=== PATIENT | male | born 1935 | race Caucasian/White ===

== ENCOUNTER 2017-01-25 14:10 | Inpatient (IN) | payer MEDICARE, OTHER ==
[~2017-01-25] VITALS: Ht 180.3 cm; Wt 104.5 kg
[2017-01-25] VITALS (8 sets, daily range): BP systolic 103–116; BP diastolic 63–73; PULSE 84–86; RESP 15–20; TEMP 93; Ht 180.3 cm; Wt 104.5 kg
[2017-01-25] MEDS ORDERED: SOD CHLORIDE 0.9% 1,000 ML IV STA (14:33)
[2017-01-25] MEDS ORDERED: DOPamine-D5W 1.6 MG/ML 250 ML ONE (14:39)
[2017-01-25] MEDS ORDERED: ASPIRIN 300 MG SUPP PR ONE (15:00)
[2017-01-25] MEDS ORDERED: NORepinephrine 8MG/250 ML (PMX 250 ML IV SCH (15:00)
[2017-01-25 15:12] LABS: ADD SCAN DIFF NO
[2017-01-25 15:14] LABS: BASOPHILS % 0.3 % (0.0-2.0); EOSINOPHILS # 0.1 10^3/ul (0.0-0.5); EOSINOPHILS % 1.3 % (0.0-7.0); HEMATOCRIT 39.9 % (42.0-52.0); LYMPHOCYTES # 4.7 10^3/ul (0.8-2.9); LYMPHOCYTES % 42.4 % (15.0-51.0); MEAN CORPUSCULAR HEMOGLOBIN 29.9 pg (29.0-33.0); MEAN CORPUSCULAR HGB CONC 30.1 g/dl (32.0-37.0); MEAN CORPUSCULAR VOLUME 99.3 fl (82.0-101.0); MONOCYTE # 0.7 10^3/ul (0.3-0.9); NEUTROPHIL # 5.4 10^3/ul (1.6-7.5); NEUTROPHILS % 48.2 % (39.0-77.0); PLATELET COUNT 143 10^3/UL (140-415); RED BLOOD COUNT 4.02 10^6/ul (4.70-6.10); WHITE BLOOD COUNT 11.1 10^3/ul (4.8-10.8)
[2017-01-25 15:24] LABS: INR 1.31; PROTIME 16.4 Sec (12.2-14.2); PT RATIO 1.3
[2017-01-25 15:25] LABS: ALBUMIN 3.9 g/dl (3.3-4.9); POTASSIUM 3.5 mmol/L (3.5-5.1)
[2017-01-25 15:27] LABS: BILIRUBIN,INDIRECT 0.2 mg/dl (0-1.1); BILIRUBIN,TOTAL 0.2 mg/dl (0.2-1.3); CREATININE 1.24 mg/dl (0.61-1.24)
[2017-01-25 15:28] LABS: ALBUMIN/GLOBULIN RATIO 1.44; CALCIUM 10.4 mg/dl (8.4-10.2); TOTAL PROTEIN 6.6 g/dl (6.1-8.1)
[2017-01-25 15:38] LABS: TROPONIN-I 0.047 ng/ml (0.00-0.12)
--- NOTE | 2017-01-25 15:56 | RADRPT ---
PROCEDURE: Chest x-ray CLINICAL INDICATION: Endotracheal tube placement TECHNIQUE: Chest single view COMPARISON: None FINDINGS: There is endotracheal tube which terminates 2.5 cm above the dorcas. Right arm PICC line is seen wi th tip in the SVC. Moderate cardiomegaly and an sclerotic aortic calcification seen there is low dalia ng volumes with accentuation lung markings and mild right basilar atelectasis. No confluent pneumon ia seen. The costophrenic angles are sharp. IMPRESSION: 1. Endotracheal tube terminates 2.5 cm above the dorcas. 2. Right arm PICC line in good position. 3. Tubing coiled within the oropharynx this may represent a nasogastric tube or something overlying the patient. 3. Moderate cardiomegaly and an sclerotic aortic calcification. 4. Low lung volumes with accentuation lung markings RPTAT: HH .Pedro Pablo Gracia MD, Date Time Electronically viewed and signed by .Pedro Pablo Gracia MD, on 01/25/2017 15:56 .W/
[2017-01-25 15:57] LABS: AADO2 Arterial 561.7 mmHg (7.0-24.0); Allen Test ACCEPTAB; Arterial Base Excess -11.3 mmol/L (-3.0-3); Arterial COHb 0.3 % (0.0-3.0); Arterial Fraction of Oxyhgb 95.9 % (93.0-99.0); Arterial HCO3 16.7 mmol/L (22.0-26.0); Arterial MetHb 0.4 % (0.0-1.5); Arterial Total Hemglobin 13.5 g/dl (12.0-18.0); MODE VENT - AC
[2017-01-25] MEDS ORDERED: INSULIN REGULAR 10 ML INJ IV ONE (16:00)
[2017-01-25] MEDS ORDERED: ATOR40TA68 PO (16:24)
[2017-01-25] MEDS ORDERED: MTF1000T PO (16:25)
[2017-01-25] MEDS ORDERED: HYDR12.58 PO (16:25)
[2017-01-25] MEDS ORDERED: LOSA100T7 PO (16:25)
[2017-01-25] MEDS ORDERED: NIFE60TA7 PO (16:26)
[2017-01-25] MEDS ORDERED: LANT3I SC (16:26)
[2017-01-25] MEDS ORDERED: ASPI81TA3 PO (16:26)
[2017-01-25] MEDS ORDERED: MEPERIDINE 25 MG INJ IV PRN (16:30)
[2017-01-25] MEDS ORDERED: ASPIRIN 300 MG SUPP PR PRN (16:30)
[2017-01-25] MEDS ORDERED: GLUCAGON 1 MG INJ IM PRN (16:30)
[2017-01-25] MEDS ORDERED: MIDAZOLAM (DRIP) 50 mg/50 mL 50 ML IV ONE (16:30)
[2017-01-25] MEDS ORDERED: DEXTROSE 50% 50 ML SYRINGE IV PRN ×4 (16:30→19:30)
[2017-01-25] MEDS ORDERED: GLUCOSE GEL 15 GRAM TUBE PO PRN ×2 (16:30)
[2017-01-25] MEDS ORDERED: FENTAnyl 50 MCG/ML VIAL IV PRN (16:30)
[2017-01-25] MEDS ORDERED: GLUCOSE GEL 15 GRAM TUBE BUCCAL PRN (16:30)
--- NOTE | 2017-01-25 16:50 | ERA ---
ER Documentation Chief Complaint Date/Time DATE: 01/25/17 TIME: 16:38 Chief Complaint BROUGHT IN VIA EMS FROM HOME DUE TO CARDIAC ARREST WITH NO PULSE ON ARRIVAL HPI This is a 81-year-old man brought in by EMS from home after collapsing in front of his wall sitting on the couch watching TV. states his face was ashen he became unresponsive and fell forward, she called 911 and she was instructed to begin chest compressions, upon EMS arrival patient was without a pulse and apneic. An IV line was established at the scene patient was given 3 rounds of epinephrine intravenously for an initial pulseless electrical activity rhythm. Patient also required defibrillation once. EMS state he had pulses throughout transport although upon he ED arrival patient was without pulses, a Marcus airway tube was placed by EMS. Family who was later at the bedside state patient had no recent fevers or chills, no cough, no complaints of chest pain or shortness of breath, no vomiting or diarrhea. Patient has a history of hypertension and coronary artery disease status post AK and stent placement about 25 years ago. ROS All systems reviewed and are negative except as per history of present illness. Medications Home Meds Reported Medications Insulin Glargine* (Lantus*) 100 Unit/Ml Soln, 36 UNIT SC QAM, #1 VIAL 01/25/17 Aspirin* (Aspirin* Chew) 81 Mg Tab.chew, 81 MG PO DAILY, TAB.CHEW 01/25/17 Nifedipine* (Nifedipine ER*) 60 Mg Tablet.sa, 60 MG PO DAILY, TAB.SA 01/25/17 Metformin* (Glucophage*) 1,000 Mg Tablet, 1000 MG PO BID, #60 TAB 01/25/17 Losartan Potassium* (Losartan Potassium*) 100 Mg Tablet, 100 MG PO DAILY, TAB 01/25/17 Hydrochlorothiazide* (Hydrochlorothiazide*) 12.5 Mg Tablet, 12.5 MG PO DAILY, # 30 TAB 01/25/17 Atorvastatin* (Atorvastatin*) 40 Mg Tablet, 40 MG PO QHS, #30 TAB 01/25/17 Allergies Allergies: Coded Allergies: No Known Allergy (Unverified , 01/25/17) PMhx/Soc Hypertension, diabetes mellitus, coronary artery disease, previous AK with stent placement, hypercholesterolemia, obesity Medical and Surgical Hx: Unable to obtain Hx Alcohol Use: No Hx Substance Use: No Hx Tobacco Use: No Sm[facility] Status[facility] Family History: No diabetes Physical Exam Vitals Vital Signs Date Time Temp Pulse Resp B/P Pulse Ox O2 Delivery O2 Flow Rate FiO2 01/25/17 15:41 22 80 100 01/25/17 14:35 97.0 0 0 0/0 0 01/25/17 14:30 21 100 100 Physical Exam GENERAL: Well-developed man, unresponsive, apneic, afebrile HEENT: Moist mucous membranes, pink conjunctiva, pupils unreactive, no cervical spine deformity NEURO: Nonverbal, pupils mid dilated and fixed, no facial asymmetry, unresponsive CARDIAC: No heart sounds auscultated, no pulses palpated LUNGS: Clear bilaterally no wheezing crackles or stridor ABDOMEN: Soft nontender, no guarding, no rigidity, no rebound, no psoas sign no obturator sign. SKIN: No obvious hematomas, abrasions, contusions, no lacerations, skin cool to touch EXTREMITIES: No clubbing cyanosis or edema, calves are bilaterally symmetrical. PSYCH: Unable to assess Result Diagram: 01/25/17 1437 01/25/17 1437 Results 24 hrs Laboratory Tests Test 01/25/17 14:33 01/25/17 14:37 Blood Gas Specimen Source Blood arterial Arterial Blood Date Drawn 01/25/2017 3:20:50 PM Arterial Blood pH (Temp corrected) 7.180 Arterial Blood pCO2 (Temp correct) 45.9mmhg Arterial Blood pO2 (Temp corrected) 105.4mmHG Arterial Blood HCO3 16.7mmol/L Arterial Blood Base Excess -11.3mmol/L Arterial Blood Oxygen Saturation 96.6mmHG Brent Test ACCEPTAB Arterial Blood Gas Puncture Site Left Radial Arterial Blood Carboxyhemoglobin 0.3% Arterial Blood Methemoglobin 0.4% Blood Gas A-a O2 Differential 561.7mmHg Oxyhemoglobin Percent 95.9% Total Hemoglobin 13.5g/dl Blood Gas Temperature 37.0C Blood Gas Respiration Rate 16.0 Blood Gas Actual Respiration Rate 22 Blood Gas Modality VENT - AC FiO2 100.0% Blood Gas Tidal Volume 500.0mL Blood Gas Low PEEP Setting 5.0cmH2O Blood Gas Critical Value Read Back DR. SANCHEZ Blood Gas Notified Whom RT Blood Gas Notified Time 01/25/2017 3:27:54 PM White Blood Count 11.110^3/ul Red Blood Count 4.0210^6/ul Hemoglobin 12.0g/dl Hematocrit 39.9% Mean Corpuscular Volume 99.3fl Mean Corpuscular Hemoglobin 29.9pg Mean Corpuscular Hemoglobin Concent 30.1g/dl Red Cell Distribution Width 13.0% Platelet Count 77408^3/UL Mean Platelet Volume 12.0fl Neutrophils % 48.2% Lymphocytes % 42.4% Monocytes % 6.0% Eosinophils % 1.3% Basophils % 0.3% Nucleated Red Blood Cells % 0.0/100WBC Neutrophils # 5.410^3/ul Lymphocytes # 4.710^3/ul Monocytes # 0.710^3/ul Eosinophils # 0.110^3/ul Basophils # 0.010^3/ul Nucleated Red Blood Cells # 0.010^3/ul Prothrombin Time 16.4Sec Prothrombin Time Ratio 1.3 INR International Normalized Ratio 1.31 Sodium Level 138mmol/L Potassium Level 3.5mmol/L Chloride Level 98mmol/L Carbon Dioxide Level 16mmol/L Anion Gap 28 Blood Urea Nitrogen 20mg/dl Creatinine 1.24mg/dl Glucose Level 405mg/dl Calcium Level 10.4mg/dl Total Bilirubin 0.2mg/dl Direct Bilirubin 0.00mg/dl Indirect Bilirubin 0.2mg/dl Aspartate Amino Transf (AST/SGOT) 103IU/L Alanine Aminotransferase (ALT/SGPT) 91IU/L Alkaline Phosphatase 60IU/L Troponin I 0.047ng/ml Total Protein 6.6g/dl Albumin 3.9g/dl Globulin 2.70g/dl Albumin/Globulin Ratio 1.44 Lipase 260U/L Current Medications Medications (Trade) Dose Ordered Sig/Judah Route PRN Reason Start Time Stop Time Status Last Admin Dose Admin Sodium Chloride 1,000 ml @ 2,000 mls/hr Q30M STAT IV 01/25/17 14:33 01/25/17 15:02 DC 01/25/17 14:45 Norepinephrine 250 ml @ 1.875 mls/ hr TITRATE IV 01/25/17 15:00 01/25/17 14:45 Dopamine HCl/ Dextrose 250 ml @ ud STK-MED ONCE .ROUTE 01/25/17 14:39 01/25/17 14:40 DC Aspirin 300 mg 300 mg ONCE ONCE AR 01/25/17 15:00 01/25/17 15:01 DC 01/25/17 14:52 Dopamine HCl/ Dextrose 250 ml @ 7.841 mls/ hr TITRATE IV 01/25/17 16:00 Insulin Human Regular (Novolin-R) 12 unit ONCE ONCE IV 01/25/17 16:00 01/25/17 16:26 DC Miscellaneous Information 1 ea NOTE XX 01/25/17 16:30 Glucose (Glutose) 15 gm Q15M PRN PO DECREASED GLUCOSE 01/25/17 16:30 Glucose (Glutose) 22.5 gm Q15M PRN PO DECREASED GLUCOSE 01/25/17 16:30 Dextrose (D50w Syringe) 25 ml Q15M PRN IV DECREASED GLUCOSE 01/25/17 16:30 Dextrose (D50w Syringe) 50 ml Q15M PRN IV DECREASED GLUCOSE 01/25/17 16:30 Glucagon (Glucagen) 1 mg Q15M PRN IM DECREASED GLUCOSE 01/25/17 16:30 Glucose (Glutose) 15 gm Q15M PRN BUCCAL DECREASED GLUCOSE 01/25/17 16:30 Fentanyl 25 mcg 25 mcg Q10M PRN IV SEDATION 01/25/17 16:30 Midazolam HCl (Versed) 50 ml @ 2 mls/hr ONCE ONCE IV 01/25/17 16:30 01/26/17 17:29 01/25/17 16:47 Aspirin (Aspirin) 300 mg Q4 PRN AR FEVER 01/25/17 16:30 01/26/17 16:29 UNV Meperidine HCl (Demerol) 12.5 mg Q4H PRN IV POST OPERATIVE SHIVERING 01/25/17 16:30 Eye Lubricant (Artificial Tears Oph) 2 drop Q6 BOTH EYES 01/25/17 18:00 Procedures/MDM IV line was established patient was placed on groundwater monitoring technician rhythm strip revealed a narrow complex rhythm at about 80 bpm without pulses. Patient was afebrile. Blood sugar was initially normal We began immediate advanced cardiac life support with high-quality chest compressions. I initially administered epinephrine intravenously multiple doses as well as calcium gluconate 1 g IV and sodium bicarbonate 50 mEq IV for pulseless electrical activity. Endotracheal Intubation by me: Pre assessment performed. See preceding note for details. Pre-oxygenation performed with 100% oxygen RSI: Performed w/o complication or hypoxic events. Medications as ordered. Blade: [Mac 4] ET Tube: 7.5 cm Depth: 23 cm at the lip Intubation confirmed by colorimetric CO2, equal breath sounds, quiet over the stomach. Central Line Placement by me: Patient consented, sterilely draped, full prep, gown, glove, mask, time out performed. Anesthesia: 1% lidocaine locally Location: Right subclavian vein Device: Multiple lumen Technique: Seldinger technique. Secured with suture. Results: Venous return from all ports with easy saline flush. No complications. The entire Guide wire retrieved and disposed of. One view chest x-ray performed, read by me ET tube 3 cm above the dorcas, normal soft tissue, No pneumothorax. Right subclavian vein line is in place. Advanced cardiac life support continued with chest compressions and medications for about 10 minutes with return of strong pulses. Patient did not require defibrillation, rhythm throughout ACLS was PEA. He did have postarrest dysrhythmia for a few minutes which resolved spontaneously and without further medications. Postarrest EKG performed, read by me revealed a wide-complex junctional rhythm were regular at 80 bpm, left axis deviation and a right bundle branch block with a QRS duration of 142 ms there are Q waves in inferior and lateral leads consistent with old AK, no acute ST elevations or depressions noted. CBC was unremarkable, electrolytes revealed a BUN/creatinine of 20/1.2, blood sugar elevated at 405, liver function tests unremarkable, initial troponin was negative. Martel catheter was placed, urine analysis was ordered results are pending I will follow-up. Patient required IV pressor medication for blood pressure support including a norepinephrine and dopamine drip titrated to keep systolic blood pressure over 80 mmHg. For continued sedation administered midazolam drip. I did administer regular insulin 12 units IV for hyperglycemia as well as aspirin 300 mg per rectum for cardioprotective measures. I also obtained emergent interventional cardiology consultation regarding the patient's presentation and symptomatology, given his overall presentation and EKG findings patient is not a candidate at this time for emergent PCI. ABG performed, read by me revealed a pH of 7.18, PCO2 46, PO2 205 revealing severe metabolic acidosis consistent with recent cardiac arrest. Patient remained stable for about an hour with good pulses and blood pressure, albeit requiring cardiac pressor medication and is now a good candidate for induced therapeutic hypothermia protocol which I ordered, further imaging deferred to admitting team Critical Care: Time: 45 minutes, this was time separate from other procedures. Treatments/Evaluations: Close monitoring and treatment of unstable vital signs, cardiorespiratory, and neurologic status, while maintaining tight balance of fluid, respiratory, and cardiac interventions. Patient admitted to the intensive care unit. Departure Diagnosis: Primary Impression: Cardiac arrest Additional Impressions: Signs of return of spontaneous circulation Respiratory failure Qualified Code: J96.01 - Acute respiratory failure with hypoxia and hypercapnia Hyperglycemia Condition: Critical DAVID SANCHEZ MD Jan 25, 2017 16:50
[2017-01-25 16:56] LABS: MAGNESIUM 2.4 mg/dl (1.7-2.5); PHOSPHORUS 9.3 mg/dl (2.5-4.9)
[2017-01-25] MEDS ORDERED: INSULIN REGULAR 10 ML INJ SC ONE (18:00)
[2017-01-25] MEDS: ARTIFICIAL TEARS 15 ML OPH BOTH EYES SCH ×2 (18:14→23:15)
[2017-01-25] MEDS: DOPamine-D5W 1.6 MG/ML 250 ML IV SCH (18:14)
[2017-01-25 19:20] LABS: ADD SCAN DIFF NO
[2017-01-25 19:21] LABS: ABNORMAL IP MESSAGE 1; BASOPHIL # 0.1 10^3/ul (0.0-0.1); BASOPHILS % 0.2 % (0.0-2.0); EOSINOPHILS # 0.1 10^3/ul (0.0-0.5); EOSINOPHILS % 0.3 % (0.0-7.0); HEMATOCRIT 41.6 % (42.0-52.0); HEMOGLOBIN 13.8 g/dl (14.0-18.0); LYMPHOCYTES # 1.8 10^3/ul (0.8-2.9); LYMPHOCYTES % 7.8 % (15.0-51.0); MEAN CORPUSCULAR HEMOGLOBIN 30.8 pg (29.0-33.0); MEAN CORPUSCULAR HGB CONC 33.2 g/dl (32.0-37.0); MEAN CORPUSCULAR VOLUME 92.9 fl (82.0-101.0); MONOCYTE # 2.9 10^3/ul (0.3-0.9); MONOCYTES % 12.3 % (0.0-11.0); NEUTROPHIL # 18.4 10^3/ul (1.6-7.5); NEUTROPHILS % 78.6 % (39.0-77.0); PLATELET COUNT 273 10^3/UL (140-415); RED BLOOD COUNT 4.48 10^6/ul (4.70-6.10); WHITE BLOOD COUNT 23.4 10^3/ul (4.8-10.8)
[2017-01-25] MEDS: ACCU-CHEK XX SCH ×5 (19:30→23:30)
[2017-01-25] MEDS ORDERED: ONDANSETRON 4 MG INJ IV PRN (19:30)
[2017-01-25 19:33] LABS: ADD UMIC YES; URINE BILIRUBIN (Dip) NEGATIVE (NEGATIVE); URINE BLOOD (Dip) 3+ (NEGATIVE); URINE COLOR LT. YELLOW (YELLOW); URINE KETONES (Dip) NEGATIVE (NEGATIVE); URINE LEUKOCYTE ESTERASE (Dip) NEGATIVE (NEGATIVE); URINE NITRITE (Dip) NEGATIVE (NEGATIVE); URINE TOTAL PROTEIN (Dip) 2+ (NEGATIVE); URINE UROBILINOGEN (Dip) 0.2 E.U./dL (0.1-1.0)
[2017-01-25 19:34] LABS: ALBUMIN 4.1 g/dl (3.3-4.9)
[2017-01-25 19:37] LABS: ALBUMIN/GLOBULIN RATIO 1.32; BILIRUBIN,INDIRECT 0.2 mg/dl (0-1.1); BILIRUBIN,TOTAL 0.2 mg/dl (0.2-1.3); CREATININE 1.62 mg/dl (0.61-1.24); TOTAL PROTEIN 7.2 g/dl (6.1-8.1)
[2017-01-25 19:38] LABS: CALCIUM 9.2 mg/dl (8.4-10.2)
[2017-01-25 19:40] LABS: INR 1.18; PROTIME 15.1 Sec (12.2-14.2); PT RATIO 1.2
[2017-01-25 19:41] LABS: PARTIAL THROMBOPLASTIN TIME 32.5 Sec (25.0-35.0)
[2017-01-25] MEDS ORDERED: VECURONIUM 10 MG VIAL IV ONE (20:00)
[2017-01-25 20:36] LABS: BACTERIA,URINE MANY; SQUAMOUS EPITHELIAL CELL,UR MODERATE; URINE RBCS >50 /HPF (0)
[2017-01-25] MEDS: SOD CHLORIDE 0.9% 1,000 ML IV SCH (21:32)
[2017-01-25] MEDS: FENTAnyl (DRIP) 1000 mcg/100mL 100 ML IV SCH (22:05)
[2017-01-25] MEDS: INSULIN HUMAN REGULAR 100 UNIT in SOD CHLORIDE 0.9% 99 ML IV SCH (22:24)
[2017-01-25] MEDS: VECURONIUM 100 MG in DEXTROSE 5% 100 ML IV SCH (22:31)
[2017-01-26] VITALS (107 sets, daily range): BP systolic 57–156; BP diastolic 33–75; PULSE 50–85; RESP 15–24
[2017-01-26 00:20] LABS: AADO2 Arterial 344.9 mmHg (7.0-24.0); Arterial Base Excess -9.7 mmol/L (-3.0-3); Arterial COHb 0.3 % (0.0-3.0); Arterial Fraction of Oxyhgb 97.7 % (93.0-99.0); Arterial HCO3 16.4 mmol/L (22.0-26.0); Arterial MetHb 0.4 % (0.0-1.5); Arterial Total Hemglobin 15.3 g/dl (12.0-18.0); MODE VENT - AC
[2017-01-26 00:54] LABS: ADD SCAN DIFF NO
[2017-01-26 00:57] LABS: ABNORMAL IP MESSAGE 1; BASOPHILS % 0.2 % (0.0-2.0); EOSINOPHILS # 0.1 10^3/ul (0.0-0.5); EOSINOPHILS % 0.3 % (0.0-7.0); HEMATOCRIT 41.3 % (42.0-52.0); LYMPHOCYTES # 1.6 10^3/ul (0.8-2.9); LYMPHOCYTES % 7.8 % (15.0-51.0); MEAN CORPUSCULAR HEMOGLOBIN 30.7 pg (29.0-33.0); MEAN CORPUSCULAR HGB CONC 33.9 g/dl (32.0-37.0); MEAN CORPUSCULAR VOLUME 90.6 fl (82.0-101.0); MEAN PLATELET VOLUME 10.9 fl (7.4-10.4); MONOCYTE # 1.8 10^3/ul (0.3-0.9); MONOCYTES % 8.3 % (0.0-11.0); NEUTROPHIL # 17.4 10^3/ul (1.6-7.5); NEUTROPHILS % 82.9 % (39.0-77.0); PLATELET COUNT 267 10^3/UL (140-415); RED BLOOD COUNT 4.56 10^6/ul (4.70-6.10); RED CELL DISTRIBUTION WIDTH 12.8 % (11.5-14.5)
[2017-01-26 01:08] LABS: INR 1.19; PROTIME 15.2 Sec (12.2-14.2); PT RATIO 1.2
[2017-01-26 01:09] LABS: PARTIAL THROMBOPLASTIN TIME 29.2 Sec (25.0-35.0)
[2017-01-26 01:13] LABS: AMYLASE 80 U/L (11-123); MAGNESIUM 1.7 mg/dl (1.7-2.5); PHOSPHORUS 3.2 mg/dl (2.5-4.9)
[2017-01-26 01:15] LABS: ALBUMIN 3.6 g/dl (3.3-4.9); ALBUMIN/GLOBULIN RATIO 1.24; CREATININE 1.86 mg/dl (0.61-1.24); POTASSIUM 3.8 mmol/L (3.5-5.1); TOTAL PROTEIN 6.5 g/dl (6.1-8.1)
[2017-01-26] MEDS: ACCU-CHEK XX SCH ×23 (01:16→23:37)
[2017-01-26] MEDS ORDERED: MIDAZOLAM (DRIP) 50 mg/50 mL 50 ML IV SCH (02:00)
[2017-01-26 02:01] LABS: TROPONIN-I 77.2 ng/ml (0.00-0.12)
[2017-01-26] MEDS: DOPamine-D5W 1.6 MG/ML 250 ML IV SCH ×2 (03:41→19:19)
--- NOTE | 2017-01-26 05:11 | HP ---
DATE OF ADMISSION: 01/25/2017 PRESENTING COMPLAINT: Altered mentation and cardiac arrest. HISTORY OF PRESENTING COMPLAINT: Mr. Burroughs is an 81-year-old male who was said to have been at home with his watching television when he suddenly slumped and lost the pulse. His called 911, and she was walked through CPR over the telephone. By the time EMS arrived, the patient was pulseless. He was managed according to ACLS protocol and regained his pulse. En route to the hospital, however, he lost the pulse again and ended up having to be resected in the emergency room as well where he was found to be a PEA rhythm and intubated. His case was reviewed with the [facility] web user experience strategist who determined that the patient was not a candidate for an emergent angiogram at this time. For details, please review the emergency room physician's notes. Currently, the patient is being admitted for further management. He is currently sedated and on the hypothermia protocol and will be admitted to the intensive care unit. No further history is obtainable at this time. REVIEW OF SYSTEMS: Unobtainable at this time. PAST MEDICAL HISTORY: Positive for 1. High blood pressure. 2. Dyslipidemia. 3. Diabetes mellitus. PAST SURGICAL HISTORY: None. ALLERGIES: NO KNOWN DRUG ALLERGIES. SOCIAL HISTORY: Per report. The patient does not smoke tobacco, drink alcohol , or use illicit drugs. FAMILY HISTORY: Unobtainable. PHYSICAL EXAMINATION: VITAL SIGNS: The patient is currently on the hypothermia protocol, and as such , his core temperature is 91.8, pulse 88, respirations 16, blood pressure 106/46 , saturations 100% on mechanical ventilator with an FIO2 of 100%. GENERAL: Obese male. He looks younger than his stated age, completely paralyzed and sedated. HEENT: Head is normocephalic without evidence of trauma. Pupils are sluggish but equal and nondilated. The patient is endotracheally intubated. CHEST: Sounds clear, maybe slightly diminished in the bases but without crackles or rales. CARDIOVASCULAR: Heart sounds are regular without murmurs. ABDOMEN: NG tube is in place. No active drainage at this time. Abdomen is somewhat firm with hypoactive bowel sounds. Tenderness could not be assessed. LOWER EXTREMITIES: Negative for edema. NEUROLOGIC: The patient is paralyzed. SKIN: There was no gross rash or jaundice. LABORATORY VALUES: His WBC count was 11,000 with a hemoglobin of 12 and platelet of 143 which is normal. Chemistry: Serum glucose was 405 which is quite elevated. Carbon dioxide was low at 16, anion gap was 20, and calcium was 10.4. AST and ALT were 103 and 91 respectively. Phosphatase was elevated at 9.3, and magnesium was 2.4. His lipase level was within normal range. First troponin is negative. Urinalysis had 3+ hemoglobin, WBC is pending, glycosuria noted with proteinuria as well. IMAGING: The patient has been unable to go to CT, but his chest x-ray does not show any gross infiltrates. It shows a PICC line, endotracheal tube, an NG tube in the oropharynx, cardiomegaly, and low lung volumes. ASSESSMENT: An 81-year-old male who came in after cardiac arrest at home, managed for the followin. Cardiac arrest with return of spontaneous circulation, status post resuscitation x2. 2. Probable diabetic ketoacidosis. 3. Acute respiratory failure, ventilator dependent, secondary to #1. 4. High blood pressure with good control. 5. Dyslipidemia. 6. Acute transaminitis which could be secondary to shock liver. 7. Systemic inflammatory response syndrome. PLAN: 1. Continue the hypothermia protocol. 2. Admit to the intensive care unit for close monitoring and vent management. 3. Obtain pulmonary and cardiology consultation. 4. Panculture. 5. Insulin drip for blood sugar control. 4. Gentle IV fluid hydration. 6. Supportive care with PPI therapy, antiemetics, and sedatives. The patient does require close lab monitoring as well as rhythm monitoring, regular electrolyte replacement, and close nursing care. I have not been able to speak with his , but I will continue to try to communicate with her. I have spoken with the emergency room doctor. I will be calling the physicians in consult. Overall, critical care time has been more than 1.5 hours. For further information and clarification, please review the patient's chart and my orders. Dictated By: JOSEPH SALMERON MD, BA/SKYLAR Conf#: [id number] DID#: [id number] [id number]
[2017-01-26] MEDS: ARTIFICIAL TEARS 15 ML OPH BOTH EYES SCH ×4 (05:46→23:19)
[2017-01-26] MEDS: PANTOPRAZOLE 40 MG INJ IV SCH (05:46)
[2017-01-26 05:58] LABS: AADO2 Arterial 396.9 mmHg (7.0-24.0); Allen Test ACCEPTAB; Arterial Base Excess -9.8 mmol/L (-3.0-3); Arterial COHb 0 % (0.0-3.0); Arterial Fraction of Oxyhgb 95.6 % (93.0-99.0); Arterial HCO3 17.2 mmol/L (22.0-26.0); Arterial MetHb 0.3 % (0.0-1.5); Arterial Total Hemglobin 15.1 g/dl (12.0-18.0); MODE VENT - AC
[2017-01-26 06:05] LABS: ADD SCAN DIFF NO
[2017-01-26 06:06] LABS: ABNORMAL IP MESSAGE 1; BASOPHILS % 0.2 % (0.0-2.0); EOSINOPHILS # 0.1 10^3/ul (0.0-0.5); EOSINOPHILS % 0.3 % (0.0-7.0); HEMATOCRIT 40.3 % (42.0-52.0); HEMOGLOBIN 13.8 g/dl (14.0-18.0); LYMPHOCYTES # 1.2 10^3/ul (0.8-2.9); LYMPHOCYTES % 6.5 % (15.0-51.0); MEAN CORPUSCULAR HEMOGLOBIN 31.1 pg (29.0-33.0); MEAN CORPUSCULAR HGB CONC 34.2 g/dl (32.0-37.0); MEAN CORPUSCULAR VOLUME 90.8 fl (82.0-101.0); MEAN PLATELET VOLUME 10.6 fl (7.4-10.4); NEUTROPHIL # 14.4 10^3/ul (1.6-7.5); NEUTROPHILS % 81.3 % (39.0-77.0); PLATELET COUNT 240 10^3/UL (140-415); RED BLOOD COUNT 4.44 10^6/ul (4.70-6.10); RED CELL DISTRIBUTION WIDTH 12.9 % (11.5-14.5); WHITE BLOOD COUNT 17.7 10^3/ul (4.8-10.8)
[2017-01-26] MEDS: INSULIN HUMAN REGULAR 100 UNIT in SOD CHLORIDE 0.9% 99 ML IV SCH (06:11)
[2017-01-26 06:26] LABS: MAGNESIUM 1.7 mg/dl (1.7-2.5); PHOSPHORUS 1.4 mg/dl (2.5-4.9)
[2017-01-26 06:27] LABS: AMYLASE 83 U/L (11-123); CHOL/HDL RATIO 1.6 RATIO
[2017-01-26 06:30] LABS: INR 1.12; PROTIME 14.4 Sec (12.2-14.2); PT RATIO 1.1
[2017-01-26 06:31] LABS: PARTIAL THROMBOPLASTIN TIME 31.5 Sec (25.0-35.0)
[2017-01-26] MEDS: SOD CHLORIDE 0.9% 1,000 ML IV SCH ×2 (09:13→20:34)
[2017-01-26 09:53] LABS: ALBUMIN 3.4 g/dl (3.3-4.9)
[2017-01-26 09:56] LABS: BILIRUBIN,INDIRECT 0.1 mg/dl (0-1.1); BILIRUBIN,TOTAL 0.1 mg/dl (0.2-1.3); CREATININE 2.2 mg/dl (0.61-1.24)
[2017-01-26 09:57] LABS: ALBUMIN/GLOBULIN RATIO 1.13; CALCIUM 8.6 mg/dl (8.4-10.2); POTASSIUM 2.9 mmol/L (3.5-5.1); TOTAL PROTEIN 6.4 g/dl (6.1-8.1)
[2017-01-26] MEDS ORDERED: MAGNESIUM SULFATE 2 GM/50 ML 50 ML ONE (10:08)
[2017-01-26] MEDS ORDERED: MAGNESIUM SULFATE 2 GM/50 ML 50 ML IVPB ONE (10:30)
--- NOTE | 2017-01-26 10:40 | RADRPT ---
PROCEDURE: XR Chest. CLINICAL INDICATION: Hypothermia protocol. TECHNIQUE: PA and Lateral views of the chest were obtained. COMPARISON: No. FINDINGS: The soft tissues are normal. There are degenerative osteophytes in the thoracic spine. A PICC line catheter enters from right subclavian approach with its tip in the superior vena cava. An endotrac heal tube is well-positioned at T3-4. There is left apical pleural thickening. The left ventricl e is enlarged. The cardiomediastinal silhouette and hilar structures are normal. The pulmonary vasc ulature is equilibrated. There are vascular calcifications in the aortic arch. There are perihilar a nd basilar infiltrates with additional plate-like areas of atelectasis in the bases of the lungs. S mall pleural effusions are suspected. IMPRESSION: 1. Congestive heart failure with interstitial pulmonary edema and subsegmental atelectasis in the ba ses of the lungs. 2. Satisfactory positioning of the endotracheal tube at T3-4. 3. Suspect positioning of a central venous catheter versus PICC line catheter and a nasogastric tub e. No pneumothorax is identified. 4. Atherosclerosis of the aortic arch. 5. Cardiomegaly with left ventricular enlargement. RPTAT:AAJJ Physician Paresh Date Time Electronically viewed and signed by Physician Paresh on 01/26/2017 10:39 JM/
[2017-01-26] MEDS ORDERED: POTASSIUM PHOSPHATE 40 MEQ in SOD CHLORIDE 0.9% 250 ML IVPB SCH (12:00)
[2017-01-26 12:15] LABS: Allen Test ACCEPTAB; Arterial Base Excess -9.5 mmol/L (-3.0-3); Arterial COHb 0.2 % (0.0-3.0); Arterial Fraction of Oxyhgb 96.6 % (93.0-99.0); Arterial HCO3 17.7 mmol/L (22.0-26.0); Arterial MetHb 0.4 % (0.0-1.5); Arterial Total Hemglobin 15.3 g/dl (12.0-18.0); MODE VENT-AC
[2017-01-26 13:01] LABS: ADD SCAN DIFF NO
[2017-01-26 13:04] LABS: BASOPHILS % 0.1 % (0.0-2.0); HEMATOCRIT 40.9 % (42.0-52.0); HEMOGLOBIN 14.1 g/dl (14.0-18.0); LYMPHOCYTES # 0.7 10^3/ul (0.8-2.9); MEAN CORPUSCULAR HEMOGLOBIN 31.1 pg (29.0-33.0); MEAN CORPUSCULAR HGB CONC 34.5 g/dl (32.0-37.0); MEAN CORPUSCULAR VOLUME 90.3 fl (82.0-101.0); MONOCYTE # 1.5 10^3/ul (0.3-0.9); MONOCYTES % 8.2 % (0.0-11.0); NEUTROPHIL # 15.7 10^3/ul (1.6-7.5); NEUTROPHILS % 87.1 % (39.0-77.0); PLATELET COUNT 249 10^3/UL (140-415); RED BLOOD COUNT 4.53 10^6/ul (4.70-6.10)
[2017-01-26 13:13] LABS: INR 1.1; PARTIAL THROMBOPLASTIN TIME 32.1 Sec (25.0-35.0); PROTIME 14.2 Sec (12.2-14.2); PT RATIO 1.1
[2017-01-26 13:17] LABS: MAGNESIUM 2.9 mg/dl (1.7-2.5); PHOSPHORUS 2.7 mg/dl (2.5-4.9)
[2017-01-26 13:19] LABS: AMYLASE 91 U/L (11-123)
[2017-01-26 13:19] LABS: ALBUMIN 3.5 g/dl (3.3-4.9); ALBUMIN/GLOBULIN RATIO 1.2; CALCIUM 8.7 mg/dl (8.4-10.2); CREATININE 2.29 mg/dl (0.61-1.24); POTASSIUM 3.5 mmol/L (3.5-5.1); TOTAL PROTEIN 6.4 g/dl (6.1-8.1)
--- NOTE | 2017-01-26 14:11 | RADRPT ---
Vent Rate: 70 bpm RR Interval: 0 msec VT Interval: 0 msec QRS Duration: 130 msec QT Interval: 456 msec QTC Interval: 492 msec P-R-T [place]: 0 - -56 - 37 degrees NSR with PAC's Left axis deviation-LAHB Left ventricular hypertrophy with QRS widening Inferior infarct , age undetermined Anterolateral infarct , age undetermined Abnormal ECG Nonspecific ST segment changes No previous tracing available for comparison Electronically Signed By: Shailesh Lehman [id number]
--- NOTE | 2017-01-26 14:14 | RADRPT ---
Vent Rate: 81 bpm RR Interval: 0 msec CA Interval: 0 msec QRS Duration: 142 msec QT Interval: 406 msec QTC Interval: 471 msec P-R-T [place]: 0 - -80 - 0 degrees Possible accelerated junctional rhythm no clearcut p waves noted Left axis deviation LAHB Right bundle branch block Bifascicular Block Inferior infarct , age undetermined Anterolateral infarct , age undetermined Abnormal ECG Possible lateral st depression and ischemic changes No previous tracing available for comparison Electronically Signed By: Shailesh Lehman [id number]
[2017-01-26] MEDS ORDERED: HEPARIN 1000 UNITS/ML 10 ML INJ IV PRN (14:30)
[2017-01-26] MEDS ORDERED: HEPARIN 1000 UNITS/ML 10 ML INJ IV ONE (14:30)
[2017-01-26 14:37] LABS: ADD SCAN DIFF NO
--- NOTE | 2017-01-26 14:38 | CONS ---
Date/Time of Note Date/Time of Note DATE: 01/26/17 TIME: 14:12 Assessment/Plan Assessment/Plan Additional Assessment/Plan Cardiopulmonary arrest Non-ST elevation LA Cardiomyopathy CAD with history of PCI Acute kidney injury Transaminitis -Patient with cardiac arrest at home with CPR performed by the prior to EMS arrival. As per ER records, patient was PEA and underwent ACLS protocol. Unfortunately, it appears patient with prolonged "downtime" with evidence of worsening renal function, elevated liver enzymes concerning for hypoperfusion as well as BIS score of 0. Furthermore, troponins overnight were elevated as well this morning and I was not informed. We will continue to monitor trend of troponins, of note CK this morning is coming down. Would continue aspirin, start statin therapy, monitor liver function enzymes closely, start IV heparin. In discussion with , there was no head trauma. No beta-ita at the current time given hypotension. Supplement potassium to maintain above 4.0 and magnesium above 2.0. Extensive discussion was had with the patient's over the phone regarding getting history as well as discussing plan of care. Will monitor trend of cardiac enzymes, renal function and mental status to decide plan of care. Consultation Date/Type/Reason Admit Date/Time Jan 25, 2017 at 16:34 Type of Consultation: cv Reason for Consultation Cardiac arrest Hx of Present Illness This is an 81-year-old gentleman with past medical history of coronary artery disease status post PCI 10 years ago, hypertension, dyslipidemia yesterday evening, while sitting on the couch with his , became acutely short of breath and then as per the , "passed out". Prior to this, patient without any shortness of breath or chest pain. He did then slumped down to the floor. His called EMS and she checked for pulse and was not present. She was told to start chest compressions. She thinks EMS got there approximately 10-15 minutes. As per ER records, patient found to be in PEA. Patient was given epinephrine and continued ACLS and patient was defibrillated. Patient was brought to the emergency room for further evaluation and care. As per the , patient did lose "his faculties". Discussion was had overnight with on-call stock hanger. Patient was transferred to the ICU. Laboratory studies overnight with elevated troponin. Patient currently on hypothermia protocol. In further discussion with the , patient with changes in his mental status over the past month with increased agitation and confusion. This was a new finding for him. Otherwise he has remained active, walking between 1- 3 miles on a daily basis with no exertional chest pain or shortness of breath as well as being aggressively compliant with his medications and diabetes control. 12 point review of systems was performed with all pertinent positives and negatives mentioned above and all else is negative Past Medical History Medical History: coronary artery disease, diabetes, high cholesterol, hypertension Past Surgical History Past Surgical Hx: angioplasty Family History Significant Family History: no pertinent family hx Social History Smoking Status: Unknown if ever smoked Other Social History Lives at home with the . Patient has his care normally at the [place]. His signal engineer was last seen 5 years ago in [place]. Exam/Review of Systems Vital Signs Vitals Vital Signs Date Time Temp Pulse Resp B/P Pulse Ox O2 Delivery O2 Flow Rate FiO2 01/26/17 13:32 66 20 100 80 01/26/17 11:45 124/59 01/26/17 11:00 91.3 01/26/17 08:00 Mechanical Ventilator Intake and Output 01/25/17 01/25/17 01/26/17 15:00 23:00 07:00 Intake Total 189 ml 1326.50 ml Output Total 37 ml 252 ml Balance 152 ml 1074.50 ml Exam Sedated and intubated, on paralytics, no apparent distress Head: normocephalic ENMT: intubated Neck: supple Respiratory: other (Coarse breath sounds bilaterally, no wheezing) Cardiovascular: other (S1-S2 heard), regular rate and rhythm Gastrointestinal: bowel sounds (Hypoactive), non-tender, soft Extremities: edema (Trace) Results Result Diagram: 01/26/17 1225 01/26/17 1241 Results 24 hrs Laboratory Tests Test 01/25/17 14:33 01/25/17 14:37 01/25/17 17:46 01/25/17 18:50 Blood Gas Specimen Source Blood arterial Arterial Blood Date Drawn 01/25/2017 3:20:50 PM Arterial Blood pH (Temp corrected) 7.180 *L Arterial Blood pCO2 (Temp correct) 45.9 H Arterial Blood pO2 (Temp corrected) 105.4 H Arterial Blood HCO3 16.7 L Arterial Blood Base Excess -11.3 L Arterial Blood Oxygen Saturation 96.6 Brent Test ACCEPTAB Arterial Blood Gas Puncture Site Left Radial Arterial Blood Carboxyhemoglobin 0.3 Arterial Blood Methemoglobin 0.4 Blood Gas A-a O2 Differential 561.7 H Oxyhemoglobin Percent 95.9 Total Hemoglobin 13.5 Blood Gas Temperature 37.0 Blood Gas Respiration Rate 16.0 Blood Gas Actual Respiration Rate 22 Blood Gas Modality VENT - AC FiO2 100.0 Blood Gas Tidal Volume 500.0 Blood Gas Low PEEP Setting 5.0 Blood Gas Critical Value Read Back DR. SANCHEZ Blood Gas Notified Whom RT Blood Gas Notified Time 01/25/2017 3:27:54 PM White Blood Count 11.1 H 23.4 #H Red Blood Count 4.02 L 4.48 L Hemoglobin 12.0 L 13.8 L Hematocrit 39.9 L 41.6 L Mean Corpuscular Volume 99.3 92.9 Mean Corpuscular Hemoglobin 29.9 30.8 Mean Corpuscular Hemoglobin Concent 30.1 L 33.2 Red Cell Distribution Width 13.0 13.0 Platelet Count 143 273 # Mean Platelet Volume 12.0 H 11.0 H Neutrophils % 48.2 78.6 H Lymphocytes % 42.4 7.8 L Monocytes % 6.0 12.3 H Eosinophils % 1.3 0.3 Basophils % 0.3 0.2 Nucleated Red Blood Cells % 0.0 0.0 Neutrophils # 5.4 18.4 H Lymphocytes # 4.7 H 1.8 Monocytes # 0.7 2.9 H Eosinophils # 0.1 0.1 Basophils # 0.0 0.1 Nucleated Red Blood Cells # 0.0 0.0 Prothrombin Time 16.4 H 15.1 H Prothrombin Time Ratio 1.3 1.2 INR International Normalized Ratio 1.31 1.18 Sodium Level 138 135 Potassium Level 3.5 5.0 Chloride Level 98 101 Carbon Dioxide Level 16 L 20 L Anion Gap 28 H 19 #H Blood Urea Nitrogen 20 26 H Creatinine 1.24 1.62 H Glucose Level 405 *H 360 H Calcium Level 10.4 H 9.2 Phosphorus Level 9.3 H Magnesium Level 2.4 Total Bilirubin 0.2 0.2 Direct Bilirubin 0.00 0.00 Indirect Bilirubin 0.2 0.2 Aspartate Amino Transf (AST/SGOT) 103 H 219 #H Alanine Aminotransferase (ALT/SGPT) 91 H 152 H Alkaline Phosphatase 60 96 # Troponin I 0.047 Total Protein 6.6 7.2 Albumin 3.9 4.1 Globulin 2.70 3.10 Albumin/Globulin Ratio 1.44 1.32 Lipase 260 Bedside Glucose 300 H Activated Partial Thromboplast Time 32.5 Urine Color LT. YELLOW Urine Clarity CLEAR Urine pH 6.5 Urine Specific [place] 1.015 Urine Ketones NEGATIVE Urine Nitrite NEGATIVE Urine Bilirubin NEGATIVE Urine Urobilinogen 0.2 E.U./dL Urine Leukocyte Esterase NEGATIVE Urine Microscopic RBC >50 Urine Microscopic WBC 5-10 Urine Squamous Epithelial Cells MODERATE Urine Bacteria MANY Urine Hemoglobin 3+ H Urine Glucose 0.25% H Urine Total Protein 2+ H Test 01/25/17 21:53 01/25/17 23:09 01/26/17 00:00 01/26/17 00:30 Bedside Glucose 330 H 320 H Blood Gas Specimen Source Blood arterial Arterial Blood Date Drawn 01/26/2017 12:00:58 AM Arterial Blood pH (Temp corrected) 7.318 L Arterial Blood pCO2 (Temp correct) 31.4 L Arterial Blood pO2 (Temp corrected) 126.5 H Arterial Blood HCO3 16.4 L Arterial Blood Base Excess -9.7 L Arterial Blood Oxygen Saturation 98.4 Brent Test N/A Arterial Blood Gas Puncture Site Right Brachial Arterial Blood Carboxyhemoglobin 0.3 Arterial Blood Methemoglobin 0.4 Blood Gas A-a O2 Differential 344.9 H Oxyhemoglobin Percent 97.7 Total Hemoglobin 15.3 Blood Gas Temperature 33.4 Blood Gas Respiration Rate 16.0 Blood Gas Actual Respiration Rate 19 Blood Gas Modality VENT - AC FiO2 70.0 Blood Gas Tidal Volume 500.0 Blood Gas Low PEEP Setting 5.0 Blood Gas Critical Value Read Back A JACOB DIAZ Blood Gas Notified Whom UP Blood Gas Notified Time 01/26/2017 12:20:10 AM White Blood Count 21.0 H Red Blood Count 4.56 L Hemoglobin 14.0 Hematocrit 41.3 L Mean Corpuscular Volume 90.6 Mean Corpuscular Hemoglobin 30.7 Mean Corpuscular Hemoglobin Concent 33.9 Red Cell Distribution Width 12.8 Platelet Count 267 Mean Platelet Volume 10.9 H Neutrophils % 82.9 H Lymphocytes % 7.8 L Monocytes % 8.3 Eosinophils % 0.3 Basophils % 0.2 Nucleated Red Blood Cells % 0.0 Neutrophils # 17.4 H Lymphocytes # 1.6 Monocytes # 1.8 H Eosinophils # 0.1 Basophils # 0.0 Nucleated Red Blood Cells # 0.0 Prothrombin Time 15.2 H Prothrombin Time Ratio 1.2 INR International Normalized Ratio 1.19 Activated Partial Thromboplast Time 29.2 Fibrinogen 343.0 D-Dimer > 03568.00 H Sodium Level 135 Potassium Level 3.8 Chloride Level 106 Carbon Dioxide Level 19 L Anion Gap 14 Blood Urea Nitrogen 31 H Creatinine 1.86 H Glucose Level 308 H Calcium Level 9.0 Phosphorus Level 3.2 # Magnesium Level 1.7 Total Bilirubin 0.0 L Direct Bilirubin 0.00 Indirect Bilirubin 0.0 Aspartate Amino Transf (AST/SGOT) 273 H Alanine Aminotransferase (ALT/SGPT) 131 H Alkaline Phosphatase 77 Creatine Kinase 2034 H Creatine Kinase Index 5.2 Creatinine Kinase MB (Mass) 105.00 H Troponin I 77.200 *H Total Protein 6.5 Albumin 3.6 Globulin 2.90 Albumin/Globulin Ratio 1.24 Amylase Level 80 Lipase 169 Test 01/26/17 00:36 01/26/17 01:15 01/26/17 02:11 01/26/17 03:38 Bedside Glucose 273 H 274 H 242 H 236 H Test 01/26/17 04:26 01/26/17 05:00 01/26/17 05:10 01/26/17 05:18 Bedside Glucose 193 202 Prothrombin Time 14.4 H Prothrombin Time Ratio 1.1 INR International Normalized Ratio 1.12 Activated Partial Thromboplast Time 31.5 Fibrinogen 362.0 D-Dimer > 59290.00 H Sodium Level 139 Potassium Level 2.9 *L Chloride Level 108 Carbon Dioxide Level 18 L Anion Gap 16 Blood Urea Nitrogen 35 H Creatinine 2.20 H Glucose Level 180 # Lactic Acid Level 3.7 H Calcium Level 8.6 Phosphorus Level 1.4 #L Magnesium Level 1.7 Total Bilirubin 0.1 L Direct Bilirubin 0.00 Indirect Bilirubin 0.1 Aspartate Amino Transf (AST/SGOT) 244 H Alanine Aminotransferase (ALT/SGPT) 123 H Alkaline Phosphatase 67 Creatine Kinase 1497 H Creatine Kinase Index 9.2 Creatinine Kinase MB (Mass) 138.00 H Troponin I 93.000 *H Total Protein 6.4 Albumin 3.4 Globulin 3.00 Albumin/Globulin Ratio 1.13 Triglycerides Level 61 Cholesterol Level 80 L LDL Cholesterol, Calculated 18 HDL Cholesterol 50 Cholesterol/HDL Ratio 1.6 Amylase Level 83 Lipase 205 White Blood Count 17.7 H Red Blood Count 4.44 L Hemoglobin 13.8 L Hematocrit 40.3 L Mean Corpuscular Volume 90.8 Mean Corpuscular Hemoglobin 31.1 Mean Corpuscular Hemoglobin Concent 34.2 Red Cell Distribution Width 12.9 Platelet Count 240 Mean Platelet Volume 10.6 H Neutrophils % 81.3 H Lymphocytes % 6.5 L Monocytes % 11.0 Eosinophils % 0.3 Basophils % 0.2 Nucleated Red Blood Cells % 0.0 Neutrophils # 14.4 H Lymphocytes # 1.2 Monocytes # 2.0 H Eosinophils # 0.1 Basophils # 0.0 Nucleated Red Blood Cells # 0.0 Test 01/26/17 06:00 01/26/17 06:08 01/26/17 06:59 01/26/17 08:31 Blood Gas Specimen Source Blood arterial Arterial Blood Date Drawn 01/26/2017 5:40:34 AM Arterial Blood pH (Temp corrected) 7.290 *L Arterial Blood pCO2 (Temp correct) 34.8 L Arterial Blood pO2 (Temp corrected) 71.3 L Arterial Blood HCO3 17.2 L Arterial Blood Base Excess -9.8 L Arterial Blood Oxygen Saturation 95.9 Brent Test ACCEPTAB Arterial Blood Gas Puncture Site Right Radial Arterial Blood Carboxyhemoglobin 0 Arterial Blood Methemoglobin 0.3 Blood Gas A-a O2 Differential 396.9 H Oxyhemoglobin Percent 95.6 Total Hemoglobin 15.1 Blood Gas Temperature 33.0 Blood Gas Respiration Rate 20.0 Blood Gas Actual Respiration Rate 22 Blood Gas Modality VENT - AC FiO2 70.0 Blood Gas Tidal Volume 500.0 Blood Gas Low PEEP Setting 5.0 Blood Gas Inspiratory Pressure 20.0 Blood Gas Critical Value Read Back Francheska ALVARADO RN Blood Gas Notified Whom MM Blood Gas Notified Time 01/26/2017 5:57:55 AM Bedside Glucose 157 189 125 Test 01/26/17 09:42 01/26/17 10:52 01/26/17 11:53 01/26/17 12:00 Bedside Glucose 141 129 124 Blood Gas Specimen Source Blood arterial Arterial Blood Date Drawn 01/26/2017 12:02:24 PM Arterial Blood pH (Temp corrected) 7.288 *L Arterial Blood pCO2 (Temp correct) 35.9 Arterial Blood pO2 (Temp corrected) 82.2 Arterial Blood HCO3 17.7 L Arterial Blood Base Excess -9.5 L Arterial Blood Oxygen Saturation 97.2 Brent Test ACCEPTAB Arterial Blood Gas Puncture Site Right Radial Arterial Blood Carboxyhemoglobin 0.2 Arterial Blood Methemoglobin 0.4 Blood Gas A-a O2 Differential 458.0 H Oxyhemoglobin Percent 96.6 Total Hemoglobin 15.3 Blood Gas Temperature 33.0 Blood Gas Respiration Rate 16.0 Blood Gas Actual Respiration Rate 18 Blood Gas Modality VENT-AC FiO2 80.0 Blood Gas Tidal Volume 500.0 Blood Gas Low PEEP Setting 5.0 Blood Gas Inspiratory Pressure 22.0 Blood Gas Critical Value Read Back EMILY ALEX Blood Gas Notified Whom JAMEE Blood Gas Notified Time 01/26/2017 12:15:12 PM Test 01/26/17 12:25 01/26/17 12:34 01/26/17 12:41 White Blood Count 18.0 H Red Blood Count 4.53 L Hemoglobin 14.1 Hematocrit 40.9 L Mean Corpuscular Volume 90.3 Mean Corpuscular Hemoglobin 31.1 Mean Corpuscular Hemoglobin Concent 34.5 Red Cell Distribution Width 13.0 Platelet Count 249 Mean Platelet Volume 11.0 H Neutrophils % 87.1 H Lymphocytes % 4.0 L Monocytes % 8.2 Eosinophils % 0.0 Basophils % 0.1 Nucleated Red Blood Cells % 0.0 Neutrophils # 15.7 H Lymphocytes # 0.7 L Monocytes # 1.5 H Eosinophils # 0.0 Basophils # 0.0 Nucleated Red Blood Cells # 0.0 Prothrombin Time 14.2 Prothrombin Time Ratio 1.1 INR International Normalized Ratio 1.10 Activated Partial Thromboplast Time 32.1 Fibrinogen 424.0 # D-Dimer > 49876.00 H Phosphorus Level 2.7 Magnesium Level 2.9 #H Amylase Level 91 Lipase 194 Bedside Glucose 113 Sodium Level 137 Potassium Level 3.5 Chloride Level 108 Carbon Dioxide Level 19 L Anion Gap 14 Blood Urea Nitrogen 36 H Creatinine 2.29 H Glucose Level 141 Calcium Level 8.7 Total Bilirubin 0.0 L Direct Bilirubin 0.00 Indirect Bilirubin 0.0 Aspartate Amino Transf (AST/SGOT) 240 H Alanine Aminotransferase (ALT/SGPT) 113 H Alkaline Phosphatase 71 Total Protein 6.4 Albumin 3.5 Globulin 2.90 Albumin/Globulin Ratio 1.20 Medications Medications Current Medications Dopamine HCl/ Dextrose 250 ml @ 7.841 mls/ hr TITRATE IV Last administered on 01/26/17t 03:41; Admin Dose 19.603 MLS/HR; Start 4/22/17 at 16:00 Miscellaneous Information 1 ea NOTE XX ; Start 01/25/17 at 16:30 Glucose (Glutose) 15 gm Q15M PRN PO DECREASED GLUCOSE; Start 01/25/17 at 16:30 Glucose (Glutose) 22.5 gm Q15M PRN PO DECREASED GLUCOSE; Start 01/25/17 at 16: 30 Dextrose (D50w Syringe) 25 ml Q15M PRN IV DECREASED GLUCOSE; Start 01/25/17 at 16:30 Dextrose (D50w Syringe) 50 ml Q15M PRN IV DECREASED GLUCOSE; Start 01/25/17 at 16:30 Glucagon (Glucagen) 1 mg Q15M PRN IM DECREASED GLUCOSE; Start 01/25/17 at 16:30 Glucose (Glutose) 15 gm Q15M PRN BUCCAL DECREASED GLUCOSE; Start 01/25/17 at 16 :30 Fentanyl 25 mcg 25 mcg Q10M PRN IV SEDATION; Start 01/25/17 at 16:30 Midazolam HCl (Versed) 50 ml @ 2 mls/hr ONCE ONCE IV Last administered on 01/25 16:47; Admin Dose 2 MLS/HR; Start 01/25/17 at 16:30; Stop 01/26/17 at 17: 29 Aspirin (Aspirin) 300 mg Q4 PRN WI FEVER; Start 01/25/17 at 16:30; Stop at 16:29 Meperidine HCl (Demerol) 12.5 mg Q4H PRN IV POST OPERATIVE SHIVERING; Start at 16:30 Eye Lubricant (Artificial Tears Oph) 2 drop Q6 BOTH EYES Last administered on 11:56; Admin Dose 2 DROP; Start 01/25/17 at 18:00 Diagnostic Test (Pha) (Accu-Chek) 1 ea Q1H XX Last administered on 01/26/17 12 :37; Admin Dose 1 EA; Start 01/25/17 at 19:30 Dextrose (D50w Syringe) 25 ml Q15M PRN IV Till BS 80 mg/dL or above x2; Start 01/25/17 at 19:30 Dextrose 50 ml 50 ml Q15M PRN IV Till BS 80 mg/dL or above x2; Start 01/25/17 at 19:30 Sodium Chloride (NS) 1,000 ml @ 75 mls/hr [id number] IV Last administered on 01/26 09:13; Admin Dose 75 MLS/HR; Start 01/25/17 at 19:30 Pantoprazole (Protonix Iv) 40 mg DAILY@06 IV Last administered on 01/26/17 05: 46; Admin Dose 40 MG; Start 01/26/17 at 06:00 Ondansetron HCl 4 mg 4 mg Q6H PRN IV NAUSEA AND/OR VOMITING; Start 01/25/17 at 19:30 Vecuronium [place] 100 mg/ Dextrose 100 ml @ 0 mls/hr TITRATE IV Last administered on 01/25/17 22:31; Admin Dose 5 MLS/HR; Start 01/25/17 at 22:00 Fentanyl 100 ml @ 2.5 mls/hr TITRATE IV Last administered on 01/25/17 22:05; Admin Dose 2.5 MLS/HR; Start 01/25/17 at 22:00 Norepinephrine 16 mg/Dextrose 500 ml @ 1.87 mls/hr TITRATE IV ; Start 01/25/17 at 23:30 Norepinephrine 16 mg/Dextrose 500 ml @ 1.87 mls/hr TITRATE IV Last administered on 01/26/17 08:15; Admin Dose 56.25 MLS/HR; Start 01/25/17 at 23: 30 Midazolam HCl 50 ml @ 1 mls/hr TITRATE IV Last administered on 01/26/17 02:10 ; Admin Dose 1 MLS/HR; Start 01/26/17 at 02:00 Potassium Phosphate/Sodium Chloride (K Phos (Meq)/NS) 259.0909 ml @ 64.773 m... ONCE IVPB Last administered on 01/26/17 12:28; Admin Dose 64.773 MLS/HR; Start 01/26/17 at 12:00; Stop 01/26/17 at 15:59 Chase Stapleton DO Jan 26, 2017 14:37
--- NOTE | 2017-01-26 14:39 | RADRPT ---
Echocardiogram Report Patient Name: RUDY RAE Gender: Male Date: 1935 Study Date: 26-Jan-2017 Grape Grower: [facility] Location: 116 Ref. Physician: JOSEPH SALMERON Quality: Adequate Procedures: Transthoracic echocardiogram with complete 2D, M-Mode, and doppler examination. Indications: Cardiac Arrest. 2D/M Mode Doppler Measurement Value Normal Ranges Measurement Value Normal Ranges LVIDd 2D 4.4 3.5 - 5.6 cm AV Peak Javy 1.0 m/sec LVIDs 2D 3.0 2.1 - 4.1 cm AV Peak PG 4.2 mmHg LVPWd 2D 1.6 0.6 - 1.1 cm LVOT Peak Javy 0.9 m/sec IVSd 2D 1.5 0.6 - 1.1 cm LVOT Peak PG 3.3 mmHg AoR Diam 2D 3.0 2.0 - 3.7 cm MV E Peak Javy 0.7 m/sec EDV 2D 88.5 cm3 MV A Peak Javy 0.5 m/sec ESV 2D 25.7 cm3 MV E/A 1.3 MV Decel Time 250 msec MV Decel [place] 3 MV E/A 1.3 Findings Left Ventricle: Overall, low normal left ventricular systolic function. Not all segments visualized. Normal left ventricular cavity size. Moderate concentric left ventricular hypertrophy. Ejection fraction is visually estimated at 50 %. Abnormal Diastolic Function. These segments of the LV are hypokinetic apex. Right Ventricle: Normal right ventricular size. Normal right ventricular systolic function. Left Atrium: The left atrium is normal in size. Right Atrium: The right atrium is normal in size. Mitral Valve: Mild mitral leaflet calcification. Mild mitral annular calcification. Trace mitral regurgitation. Aortic Valve: Normal appearance of the aortic valve. No significant aortic stenosis or insufficiency. Tricuspid Valve: Tricuspid valve not well visualized. There is trace tricuspid regurgitation. Pulmonic Valve: There is trace pulmonic regurgitation. Pericardium: Normal pericardium with no significant pericardial effusion. Aorta: Normal aortic root. IVC: Inferior vena cava without respiratory collapse, however, patient on ventilator. Conclusions Overall, low normal left ventricular systolic function. Not all segments visualized. Normal left ventricular cavity size. Moderate concentric left ventricular hypertrophy. Ejection fraction is visually estimated at 50 %. Abnormal Diastolic Function. These segments of the LV are hypokinetic apex. Normal right ventricular size. Normal right ventricular systolic function. The left atrium is normal in size. The right atrium is normal in size. No significant valvular stenosis or regurgitation seen. Normal pericardium with no significant pericardial effusion. Electronically Signed By: Chase Stapleton 26-Jan-2017 14:39:25 -0700 Patient Name: RUDY RAE Study Date: 26-Jan-2017 [id number]
--- NOTE | 2017-01-26 14:41 | CONS ---
DATE OF ADMISSION: 01/25/2017 DATE OF CONSULTATION: 01/26/2017 PULMONARY CONSULTATION REASON FOR CONSULTATION: Respiratory failure, status post cardiac arrest. HISTORY OF PRESENT ILLNESS: Briefly, Mr. Burroughs is an 81-year-old gentleman with a history of hyperte nsion, dyslipidemia, diabetes who was apparently at home TV with his when he suddenly slumped o [place] and upon contacting 911 CPR was initiated by the patient's . This was ongoing for a period of 10 to 15 minutes at which point EMS arrived. Apparently at that time, EMS was able to regain the patient's pulse and it appears that upon arrival to the emergency room, he was in PEA at which poin t he was intubated. He at that point was started on hypothermia protocol managed for his acute anthony nary syndrome and transferred to the ICU. PAST MEDICAL HISTORY: Positive for hypertension, dyslipidemia, diabetes. ALLERGIES: NONE. PAST SURGICAL HISTORY: None. SOCIAL HISTORY: No tobacco, alcohol or illicit drug use. FAMILY HISTORY: Unable to obtain. REVIEW OF SYSTEMS: Unable to obtain. PHYSICAL EXAMINATION: VITAL SIGNS: Currently blood pressure is 124/59 supported on dopamine and Levophed. Oxygen saturat ion is 100% on 80% FIO2, heart rate is 66 and regular. HEENT: ET tube is in place. Pupils are fixed and dilated. NECK: Supple. No thyromegaly. CARDIOVASCULAR: Regular rate and rhythm, S1, S2. No murmurs, rubs, or gallops. CHEST: There are bibasilar crackles. ABDOMEN: Soft, nontender. EXTREMITIES: No cyanosis, clubbing or edema. NEUROLOGIC: Exam is difficult to ascertain given the patient is on paralytics at this point. LABORATORY DATA: BUN is 36, creatinine is 2.3. ABG: pH is 7.3, pCO2 is 36, pO2 is 82. WBC is 18, hemoglobin is 14.1. Latest troponin is 93, AST is 244, ALT is 123. IMPRESSION: 1. Status post cardiopulmonary arrest, likely due to a primary cardiac event, likely an acute myoca rdial infarction. Now with associated end organ dysfunction as evidenced by high concern for anoxic encephalopathy, acute renal failure, likely due to acute tubular necrosis and possibly early ischem ic hepatopathy as well as shock. 2. Acute myocardial infarction. 3. Acute respiratory failure secondary to above. 4. Acute renal failure. 5. Transaminitis likely ischemic hepatopathy. RECOMMENDATIONS: 1. Continue with hypothermia protocol. 2. Will make ventilator adjustments to optimize his acid base status and his ventilatory status. 3. Will need to reassess mental status once he is off hypothermia protocol and off paralytics. 4. Management of ACS as per cardiology. 5. Prognosis based on the current findings is very grim, but again will need to reevaluate once the patient is off hypothermia protocol. Dictated By: MARY SAUNDERS MD NK/NTS Conf#: [id number] DID#: [id number] CC: JOSEPH SALMERON MD;*EndCC*
[2017-01-26 14:42] LABS: ABNORMAL IP MESSAGE 1; BASOPHILS % 0.1 % (0.0-2.0); HEMATOCRIT 40.9 % (42.0-52.0); HEMOGLOBIN 14.2 g/dl (14.0-18.0); LYMPHOCYTES # 0.7 10^3/ul (0.8-2.9); LYMPHOCYTES % 3.7 % (15.0-51.0); MEAN CORPUSCULAR HEMOGLOBIN 31.4 pg (29.0-33.0); MEAN CORPUSCULAR HGB CONC 34.7 g/dl (32.0-37.0); MEAN CORPUSCULAR VOLUME 90.5 fl (82.0-101.0); MEAN PLATELET VOLUME 10.8 fl (7.4-10.4); MONOCYTE # 1.9 10^3/ul (0.3-0.9); MONOCYTES % 10.2 % (0.0-11.0); NEUTROPHILS % 85.5 % (39.0-77.0); PLATELET COUNT 247 10^3/UL (140-415); RED BLOOD COUNT 4.52 10^6/ul (4.70-6.10); RED CELL DISTRIBUTION WIDTH 12.9 % (11.5-14.5); WHITE BLOOD COUNT 18.8 10^3/ul (4.8-10.8)
[2017-01-26 14:56] LABS: INR 1.07; POTASSIUM 4.1 mmol/L (3.5-5.1); PROTIME 13.9 Sec (12.2-14.2); PT RATIO 1.1
[2017-01-26 14:57] LABS: PARTIAL THROMBOPLASTIN TIME 30.1 Sec (25.0-35.0)
[2017-01-26 14:59] LABS: CREATININE 2.37 mg/dl (0.61-1.24)
[2017-01-26 15:00] LABS: CALCIUM 8.5 mg/dl (8.4-10.2)
[2017-01-26] MEDS: HEPARIN 25000 UNITS/250 ML 250 ML IV SCH (15:00)
[2017-01-26] MEDS: ASPIRIN 81 MG TAB NGT SCH (15:03)
--- NOTE | 2017-01-26 15:09 | RADRPT ---
Vent Rate: 63 bpm RR Interval: 0 msec DE Interval: 168 msec QRS Duration: 124 msec QT Interval: 466 msec QTC Interval: 476 msec P-R-T [place]: 0 - -59 - 16 degrees Normal sinus rhythm Left axis deviation-LAHB Right bundle branch block Bifascicular block Minimal voltage criteria for LVH, may be normal variant Inferior infarct , age undetermined Anterolateral infarct , age undetermined Abnormal ECG No previous tracing available for comparison Electronically Signed By: Shailesh Lehman [id number]
[2017-01-26] MEDS ORDERED: SOD CHLORIDE 0.9% 1,000 ML IV ONE (16:20)
--- NOTE | 2017-01-26 17:12 | PN ---
Date/Time of Note Date/Time of Note DATE: 01/26/17 TIME: 17:03 Assessment/Plan VTE Prophylaxis VTE Prophylaxis Intervention: heparin Lines/Catheters IV Catheter Type (from [facility]): Central Line Central line still needed: Yes Urinary Cath still in place: Yes Reason Cath still needed: other (indicate) Assessment/Plan Assessment/Plan An 81-year-old male who came in after cardiac arrest at home, managed for the followin. Cardiac arrest with return of spontaneous circulation, status post resuscitation x2. 2. Diabetic ketoacidosis: improving on insulin drip 3. Acute respiratory failure, ventilator dependent, secondary to #1. 4. High blood pressure with good control. 5. Dyslipidemia. 6. Acute transaminitis which could be secondary to shock liver. 7. Systemic inflammatory response syndrome. 8. NSTEMI PLAN: 1. Continue the hypothermia protocol. 2. Continue ICU care and vent Mgt 3. f/u pul and cardio recs / patient is on heparin drip for Nstemi 4. f/u final culture reports 5. Continue Insulin drip for blood sugar control. 6. Continue Gentle IV fluid hydration. 7. Replace and monitor electrolytes Supportive care with PPI therapy, antiemetics, and sedatives. Prophylaxis: Heparin and pepcid Critical care > 35mins Subjective 24 Hr Interval Summary Free Text/Dictation Patient seen and examined. remains on hypothermia protocol Exam/Review of Systems Vital Signs Vitals Vital Signs Date Time Temp Pulse Resp B/P Pulse Ox O2 Delivery O2 Flow Rate FiO2 01/26/17 16:30 60 24 133/65 99 01/26/17 16:00 91.3 01/26/17 15:32 80 01/26/17 08:00 Mechanical Ventilator Intake and Output 01/25/17 01/25/17 01/26/17 15:00 23:00 07:00 Intake Total 189 ml 1326.50 ml Output Total 37 ml 252 ml Balance 152 ml 1074.50 ml Exam GENERAL: Obese male. He looks younger than his stated age, completely paralyzed and sedated. HEENT: Head is normocephalic without evidence of trauma. Pupils are sluggish but equal and nondilated. The patient is endotracheally intubated. CHEST: Sounds clear, maybe slightly diminished in the bases but without crackles or rales. CARDIOVASCULAR: Heart sounds are regular without murmurs. ABDOMEN: NG tube is in place. No active drainage at this time. Abdomen is somewhat firm with hypoactive bowel sounds. Tenderness could not be assessed. LOWER EXTREMITIES: Negative for edema. NEUROLOGIC: The patient is paralyzed. SKIN: There was no gross rash or jaundice. Results Result Diagram: 01/26/17 1420 01/26/17 1420 Results 24 hrs Laboratory Tests Test 01/25/17 17:46 01/25/17 18:50 01/25/17 21:53 01/25/17 23:09 Bedside Glucose 300 H 330 H 320 H White Blood Count 23.4 #H Red Blood Count 4.48 L Hemoglobin 13.8 L Hematocrit 41.6 L Mean Corpuscular Volume 92.9 Mean Corpuscular Hemoglobin 30.8 Mean Corpuscular Hemoglobin Concent 33.2 Red Cell Distribution Width 13.0 Platelet Count 273 # Mean Platelet Volume 11.0 H Neutrophils % 78.6 H Lymphocytes % 7.8 L Monocytes % 12.3 H Eosinophils % 0.3 Basophils % 0.2 Nucleated Red Blood Cells % 0.0 Neutrophils # 18.4 H Lymphocytes # 1.8 Monocytes # 2.9 H Eosinophils # 0.1 Basophils # 0.1 Nucleated Red Blood Cells # 0.0 Prothrombin Time 15.1 H Prothrombin Time Ratio 1.2 INR International Normalized Ratio 1.18 Activated Partial Thromboplast Time 32.5 Urine Color LT. YELLOW Urine Clarity CLEAR Urine pH 6.5 Urine Specific [place] 1.015 Urine Ketones NEGATIVE Urine Nitrite NEGATIVE Urine Bilirubin NEGATIVE Urine Urobilinogen 0.2 E.U./dL Urine Leukocyte Esterase NEGATIVE Urine Microscopic RBC >50 Urine Microscopic WBC 5-10 Urine Squamous Epithelial Cells MODERATE Urine Bacteria MANY Urine Hemoglobin 3+ H Urine Glucose 0.25% H Urine Total Protein 2+ H Sodium Level 135 Potassium Level 5.0 Chloride Level 101 Carbon Dioxide Level 20 L Anion Gap 19 #H Blood Urea Nitrogen 26 H Creatinine 1.62 H Glucose Level 360 H Calcium Level 9.2 Total Bilirubin 0.2 Direct Bilirubin 0.00 Indirect Bilirubin 0.2 Aspartate Amino Transf (AST/SGOT) 219 #H Alanine Aminotransferase (ALT/SGPT) 152 H Alkaline Phosphatase 96 # Total Protein 7.2 Albumin 4.1 Globulin 3.10 Albumin/Globulin Ratio 1.32 Test 01/26/17 00:00 01/26/17 00:30 01/26/17 00:36 01/26/17 01:15 Blood Gas Specimen Source Blood arterial Arterial Blood Date Drawn 01/26/2017 12:00:58 AM Arterial Blood pH (Temp corrected) 7.318 L Arterial Blood pCO2 (Temp correct) 31.4 L Arterial Blood pO2 (Temp corrected) 126.5 H Arterial Blood HCO3 16.4 L Arterial Blood Base Excess -9.7 L Arterial Blood Oxygen Saturation 98.4 Brent Test N/A Arterial Blood Gas Puncture Site Right Brachial Arterial Blood Carboxyhemoglobin 0.3 Arterial Blood Methemoglobin 0.4 Blood Gas A-a O2 Differential 344.9 H Oxyhemoglobin Percent 97.7 Total Hemoglobin 15.3 Blood Gas Temperature 33.4 Blood Gas Respiration Rate 16.0 Blood Gas Actual Respiration Rate 19 Blood Gas Modality VENT - AC FiO2 70.0 Blood Gas Tidal Volume 500.0 Blood Gas Low PEEP Setting 5.0 Blood Gas Critical Value Read Back A JACOB DIAZ Blood Gas Notified Whom UP Blood Gas Notified Time 01/26/2017 12:20:10 AM White Blood Count 21.0 H Red Blood Count 4.56 L Hemoglobin 14.0 Hematocrit 41.3 L Mean Corpuscular Volume 90.6 Mean Corpuscular Hemoglobin 30.7 Mean Corpuscular Hemoglobin Concent 33.9 Red Cell Distribution Width 12.8 Platelet Count 267 Mean Platelet Volume 10.9 H Neutrophils % 82.9 H Lymphocytes % 7.8 L Monocytes % 8.3 Eosinophils % 0.3 Basophils % 0.2 Nucleated Red Blood Cells % 0.0 Neutrophils # 17.4 H Lymphocytes # 1.6 Monocytes # 1.8 H Eosinophils # 0.1 Basophils # 0.0 Nucleated Red Blood Cells # 0.0 Prothrombin Time 15.2 H Prothrombin Time Ratio 1.2 INR International Normalized Ratio 1.19 Activated Partial Thromboplast Time 29.2 Fibrinogen 343.0 D-Dimer > 38479.00 H Sodium Level 135 Potassium Level 3.8 Chloride Level 106 Carbon Dioxide Level 19 L Anion Gap 14 Blood Urea Nitrogen 31 H Creatinine 1.86 H Glucose Level 308 H Calcium Level 9.0 Phosphorus Level 3.2 # Magnesium Level 1.7 Total Bilirubin 0.0 L Direct Bilirubin 0.00 Indirect Bilirubin 0.0 Aspartate Amino Transf (AST/SGOT) 273 H Alanine Aminotransferase (ALT/SGPT) 131 H Alkaline Phosphatase 77 Creatine Kinase 2034 H Creatine Kinase Index 5.2 Creatinine Kinase MB (Mass) 105.00 H Troponin I 77.200 *H Total Protein 6.5 Albumin 3.6 Globulin 2.90 Albumin/Globulin Ratio 1.24 Amylase Level 80 Lipase 169 Bedside Glucose 273 H 274 H Test 01/26/17 02:11 01/26/17 03:38 01/26/17 04:26 01/26/17 05:00 Bedside Glucose 242 H 236 H 193 Prothrombin Time 14.4 H Prothrombin Time Ratio 1.1 INR International Normalized Ratio 1.12 Activated Partial Thromboplast Time 31.5 Fibrinogen 362.0 D-Dimer > 58377.00 H Sodium Level 139 Potassium Level 2.9 *L Chloride Level 108 Carbon Dioxide Level 18 L Anion Gap 16 Blood Urea Nitrogen 35 H Creatinine 2.20 H Glucose Level 180 # Lactic Acid Level 3.7 H Calcium Level 8.6 Phosphorus Level 1.4 #L Magnesium Level 1.7 Total Bilirubin 0.1 L Direct Bilirubin 0.00 Indirect Bilirubin 0.1 Aspartate Amino Transf (AST/SGOT) 244 H Alanine Aminotransferase (ALT/SGPT) 123 H Alkaline Phosphatase 67 Creatine Kinase 1497 H Creatine Kinase Index 9.2 Creatinine Kinase MB (Mass) 138.00 H Troponin I 93.000 *H Total Protein 6.4 Albumin 3.4 Globulin 3.00 Albumin/Globulin Ratio 1.13 Triglycerides Level 61 Cholesterol Level 80 L LDL Cholesterol, Calculated 18 HDL Cholesterol 50 Cholesterol/HDL Ratio 1.6 Amylase Level 83 Lipase 205 Test 01/26/17 05:10 01/26/17 05:18 01/26/17 06:00 01/26/17 06:08 White Blood Count 17.7 H Red Blood Count 4.44 L Hemoglobin 13.8 L Hematocrit 40.3 L Mean Corpuscular Volume 90.8 Mean Corpuscular Hemoglobin 31.1 Mean Corpuscular Hemoglobin Concent 34.2 Red Cell Distribution Width 12.9 Platelet Count 240 Mean Platelet Volume 10.6 H Neutrophils % 81.3 H Lymphocytes % 6.5 L Monocytes % 11.0 Eosinophils % 0.3 Basophils % 0.2 Nucleated Red Blood Cells % 0.0 Neutrophils # 14.4 H Lymphocytes # 1.2 Monocytes # 2.0 H Eosinophils # 0.1 Basophils # 0.0 Nucleated Red Blood Cells # 0.0 Bedside Glucose 202 157 Blood Gas Specimen Source Blood arterial Arterial Blood Date Drawn 01/26/2017 5:40:34 AM Arterial Blood pH (Temp corrected) 7.290 *L Arterial Blood pCO2 (Temp correct) 34.8 L Arterial Blood pO2 (Temp corrected) 71.3 L Arterial Blood HCO3 17.2 L Arterial Blood Base Excess -9.8 L Arterial Blood Oxygen Saturation 95.9 Brent Test ACCEPTAB Arterial Blood Gas Puncture Site Right Radial Arterial Blood Carboxyhemoglobin 0 Arterial Blood Methemoglobin 0.3 Blood Gas A-a O2 Differential 396.9 H Oxyhemoglobin Percent 95.6 Total Hemoglobin 15.1 Blood Gas Temperature 33.0 Blood Gas Respiration Rate 20.0 Blood Gas Actual Respiration Rate 22 Blood Gas Modality VENT - AC FiO2 70.0 Blood Gas Tidal Volume 500.0 Blood Gas Low PEEP Setting 5.0 Blood Gas Inspiratory Pressure 20.0 Blood Gas Critical Value Read Back Francheska ALVARADO RN Blood Gas Notified Whom MM Blood Gas Notified Time 01/26/2017 5:57:55 AM Test 01/26/17 06:59 01/26/17 08:31 01/26/17 09:42 01/26/17 10:52 Bedside Glucose 189 125 141 129 Test 01/26/17 11:53 01/26/17 12:00 01/26/17 12:25 01/26/17 12:34 Bedside Glucose 124 113 Blood Gas Specimen Source Blood arterial Arterial Blood Date Drawn 01/26/2017 12:02:24 PM Arterial Blood pH (Temp corrected) 7.288 *L Arterial Blood pCO2 (Temp correct) 35.9 Arterial Blood pO2 (Temp corrected) 82.2 Arterial Blood HCO3 17.7 L Arterial Blood Base Excess -9.5 L Arterial Blood Oxygen Saturation 97.2 Brent Test ACCEPTAB Arterial Blood Gas Puncture Site Right Radial Arterial Blood Carboxyhemoglobin 0.2 Arterial Blood Methemoglobin 0.4 Blood Gas A-a O2 Differential 458.0 H Oxyhemoglobin Percent 96.6 Total Hemoglobin 15.3 Blood Gas Temperature 33.0 Blood Gas Respiration Rate 16.0 Blood Gas Actual Respiration Rate 18 Blood Gas Modality VENT-AC FiO2 80.0 Blood Gas Tidal Volume 500.0 Blood Gas Low PEEP Setting 5.0 Blood Gas Inspiratory Pressure 22.0 Blood Gas Critical Value Read Back EMILY ALEX Blood Gas Notified Whom JMD Blood Gas Notified Time 01/26/2017 12:15:12 PM White Blood Count 18.0 H Red Blood Count 4.53 L Hemoglobin 14.1 Hematocrit 40.9 L Mean Corpuscular Volume 90.3 Mean Corpuscular Hemoglobin 31.1 Mean Corpuscular Hemoglobin Concent 34.5 Red Cell Distribution Width 13.0 Platelet Count 249 Mean Platelet Volume 11.0 H Neutrophils % 87.1 H Lymphocytes % 4.0 L Monocytes % 8.2 Eosinophils % 0.0 Basophils % 0.1 Nucleated Red Blood Cells % 0.0 Neutrophils # 15.7 H Lymphocytes # 0.7 L Monocytes # 1.5 H Eosinophils # 0.0 Basophils # 0.0 Nucleated Red Blood Cells # 0.0 Prothrombin Time 14.2 Prothrombin Time Ratio 1.1 INR International Normalized Ratio 1.10 Activated Partial Thromboplast Time 32.1 Fibrinogen 424.0 # D-Dimer > 85827.00 H Phosphorus Level 2.7 Magnesium Level 2.9 #H Amylase Level 91 Lipase 194 Test 01/26/17 12:41 01/26/17 14:12 01/26/17 14:20 01/26/17 15:25 Sodium Level 137 139 Potassium Level 3.5 4.1 Chloride Level 108 106 Carbon Dioxide Level 19 L 20 L Anion Gap 14 17 H Blood Urea Nitrogen 36 H 37 H Creatinine 2.29 H 2.37 H Glucose Level 141 138 Calcium Level 8.7 8.5 Total Bilirubin 0.0 L Direct Bilirubin 0.00 Indirect Bilirubin 0.0 Aspartate Amino Transf (AST/SGOT) 240 H Alanine Aminotransferase (ALT/SGPT) 113 H Alkaline Phosphatase 71 Total Protein 6.4 Albumin 3.5 Globulin 2.90 Albumin/Globulin Ratio 1.20 Bedside Glucose 123 108 White Blood Count 18.8 H Red Blood Count 4.52 L Hemoglobin 14.2 Hematocrit 40.9 L Mean Corpuscular Volume 90.5 Mean Corpuscular Hemoglobin 31.4 Mean Corpuscular Hemoglobin Concent 34.7 Red Cell Distribution Width 12.9 Platelet Count 247 Mean Platelet Volume 10.8 H Neutrophils % 85.5 H Lymphocytes % 3.7 L Monocytes % 10.2 Eosinophils % 0.0 Basophils % 0.1 Nucleated Red Blood Cells % 0.0 Neutrophils # 16.0 H Lymphocytes # 0.7 L Monocytes # 1.9 H Eosinophils # 0.0 Basophils # 0.0 Nucleated Red Blood Cells # 0.0 Prothrombin Time 13.9 Prothrombin Time Ratio 1.1 INR International Normalized Ratio 1.07 Activated Partial Thromboplast Time 30.1 Creatine Kinase 1216 H Creatine Kinase Index 10.9 Creatinine Kinase MB (Mass) 133.00 H Troponin I 47.000 *H Medications Medications Current Medications Dopamine HCl/ Dextrose 250 ml @ 7.841 mls/ hr TITRATE IV Last administered on 01/26/17 03:41; Admin Dose 19.603 MLS/HR; Start 01/25/17 at 16:00 Miscellaneous Information 1 ea NOTE XX ; Start 01/25/17 at 16:30 Glucose (Glutose) 15 gm Q15M PRN PO DECREASED GLUCOSE; Start 01/25/17 at 16:30 Glucose (Glutose) 22.5 gm Q15M PRN PO DECREASED GLUCOSE; Start 01/25/17 at 16: 30 Dextrose (D50w Syringe) 25 ml Q15M PRN IV DECREASED GLUCOSE; Start 01/25/17 at 16:30 Dextrose (D50w Syringe) 50 ml Q15M PRN IV DECREASED GLUCOSE; Start 01/25/17 at 16:30 Glucagon (Glucagen) 1 mg Q15M PRN IM DECREASED GLUCOSE; Start 01/25/17 at 16:30 Glucose (Glutose) 15 gm Q15M PRN BUCCAL DECREASED GLUCOSE; Start 01/25/17 at 16 :30 Fentanyl 25 mcg 25 mcg Q10M PRN IV SEDATION; Start 01/25/17 at 16:30 Midazolam HCl (Versed) 50 ml @ 2 mls/hr ONCE ONCE IV Last administered on 01/25 16:47; Admin Dose 2 MLS/HR; Start 01/25/17 at 16:30; Stop 01/26/17 at 17: 29 Meperidine HCl (Demerol) 12.5 mg Q4H PRN IV POST OPERATIVE SHIVERING; Start at 16:30 Eye Lubricant (Artificial Tears Oph) 2 drop Q6 BOTH EYES Last administered on 11:56; Admin Dose 2 DROP; Start 01/25/17 at 18:00 Diagnostic Test (Pha) (Accu-Chek) 1 ea Q1H XX Last administered on 01/26/17 16 :10; Admin Dose 1 EA; Start 01/25/17 at 19:30 Dextrose (D50w Syringe) 25 ml Q15M PRN IV Till BS 80 mg/dL or above x2; Start 01/25/17 at 19:30 Dextrose 50 ml 50 ml Q15M PRN IV Till BS 80 mg/dL or above x2; Start 01/25/17 at 19:30 Sodium Chloride (NS) 1,000 ml @ 75 mls/hr [id number] IV Last administered on 01/26 09:13; Admin Dose 75 MLS/HR; Start 01/25/17 at 19:30 Pantoprazole (Protonix Iv) 40 mg DAILY@06 IV Last administered on 01/26/17 05: 46; Admin Dose 40 MG; Start 01/26/17 at 06:00 Ondansetron HCl 4 mg 4 mg Q6H PRN IV NAUSEA AND/OR VOMITING; Start 01/25/17 at 19:30 Vecuronium [place] 100 mg/ Dextrose 100 ml @ 0 mls/hr TITRATE IV Last administered on 01/25/17 22:31; Admin Dose 5 MLS/HR; Start 01/25/17 at 22:00 Fentanyl 100 ml @ 2.5 mls/hr TITRATE IV Last administered on 01/25/17 22:05; Admin Dose 2.5 MLS/HR; Start 01/25/17 at 22:00 Norepinephrine 16 mg/Dextrose 500 ml @ 1.87 mls/hr TITRATE IV ; Start 01/25/17 at 23:30 Midazolam HCl (Versed) 50 ml @ 1 mls/hr TITRATE IV Last administered on 02:10; Admin Dose 1 MLS/HR; Start 01/26/17 at 02:00 Aspirin (Aspirin) 81 mg DAILY NGT Last administered on 01/26/17 15:03; Admin Dose 81 MG; Start 01/26/17 at 14:30 Atorvastatin Calcium 80 mg 80 mg HS PO ; Start 01/26/17 at 21:00 Sodium Chloride (NS) 1,000 ml @ 1,000 mls/hr Q1H ONCE IV ; Start 01/26/17 at 16 :20; Stop 01/26/17 at 17:19 JOSEPH SALMERON Jan 26, 2017 17:12
[2017-01-26 18:58] LABS: ADD SCAN DIFF NO
[2017-01-26 19:05] LABS: ABNORMAL IP MESSAGE 1; BASOPHILS % 0.1 % (0.0-2.0); HEMATOCRIT 39.1 % (42.0-52.0); HEMOGLOBIN 13.5 g/dl (14.0-18.0); LYMPHOCYTES # 0.9 10^3/ul (0.8-2.9); LYMPHOCYTES % 4.8 % (15.0-51.0); MEAN CORPUSCULAR HEMOGLOBIN 30.8 pg (29.0-33.0); MEAN CORPUSCULAR HGB CONC 34.5 g/dl (32.0-37.0); MEAN CORPUSCULAR VOLUME 89.3 fl (82.0-101.0); MEAN PLATELET VOLUME 11.3 fl (7.4-10.4); MONOCYTE # 1.9 10^3/ul (0.3-0.9); MONOCYTES % 9.8 % (0.0-11.0); NEUTROPHIL # 16.6 10^3/ul (1.6-7.5); NEUTROPHILS % 84.9 % (39.0-77.0); PLATELET COUNT 234 10^3/UL (140-415); RED BLOOD COUNT 4.38 10^6/ul (4.70-6.10); RED CELL DISTRIBUTION WIDTH 12.9 % (11.5-14.5); WHITE BLOOD COUNT 19.6 10^3/ul (4.8-10.8)
[2017-01-26 19:10] LABS: ALBUMIN 3.1 g/dl (3.3-4.9)
[2017-01-26 19:11] LABS: POTASSIUM 4.6 mmol/L (3.5-5.1)
[2017-01-26 19:13] LABS: ALBUMIN/GLOBULIN RATIO 1.03; BILIRUBIN,INDIRECT 0.1 mg/dl (0-1.1); BILIRUBIN,TOTAL 0.1 mg/dl (0.2-1.3); CREATININE 2.47 mg/dl (0.61-1.24); PHOSPHORUS 5.4 mg/dl (2.5-4.9); TOTAL PROTEIN 6.1 g/dl (6.1-8.1)
[2017-01-26 19:14] LABS: CALCIUM 8.1 mg/dl (8.4-10.2)
[2017-01-26 19:29] LABS: AADO2 Arterial 483.3 mmHg (7.0-24.0); Allen Test ACCEPTAB; Arterial COHb 0.3 % (0.0-3.0); Arterial Fraction of Oxyhgb 95.2 % (93.0-99.0); Arterial HCO3 15.7 mmol/L (22.0-26.0); Arterial MetHb 0.3 % (0.0-1.5); Arterial Total Hemglobin 14.7 g/dl (12.0-18.0); MODE VENT - AC
[2017-01-26] MEDS: ATORVASTATIN 80 MG TAB PO SCH (20:28)
[2017-01-26] MEDS: VECURONIUM 100 MG in DEXTROSE 5% 100 ML IV SCH (23:19)
[2017-01-26 23:28] LABS: INR 1.19; PROTIME 15.2 Sec (12.2-14.2); PT RATIO 1.2
[2017-01-26 23:38] LABS: MAGNESIUM 1.9 mg/dl (1.7-2.5); PHOSPHORUS 5.9 mg/dl (2.5-4.9)
[2017-01-26 23:45] LABS: PARTIAL THROMBOPLASTIN TIME 86.1 Sec (25.0-35.0)
[2017-01-27] VITALS (101 sets, daily range): BP systolic 64–164; BP diastolic 42–73; PULSE 63–94; RESP 11–27
[2017-01-27 00:11] LABS: ADD SCAN DIFF NO
[2017-01-27 00:12] LABS: BASOPHILS % 0.1 % (0.0-2.0); EOSINOPHILS % 0.1 % (0.0-7.0); HEMATOCRIT 37.3 % (42.0-52.0); HEMOGLOBIN 12.9 g/dl (14.0-18.0); LYMPHOCYTES # 1.4 10^3/ul (0.8-2.9); LYMPHOCYTES % 8.2 % (15.0-51.0); MEAN CORPUSCULAR HEMOGLOBIN 30.9 pg (29.0-33.0); MEAN CORPUSCULAR HGB CONC 34.6 g/dl (32.0-37.0); MEAN CORPUSCULAR VOLUME 89.4 fl (82.0-101.0); MEAN PLATELET VOLUME 11.2 fl (7.4-10.4); MONOCYTE # 1.4 10^3/ul (0.3-0.9); MONOCYTES % 8.1 % (0.0-11.0); NEUTROPHIL # 14.6 10^3/ul (1.6-7.5); NEUTROPHILS % 83.1 % (39.0-77.0); PLATELET COUNT 228 10^3/UL (140-415); RED BLOOD COUNT 4.17 10^6/ul (4.70-6.10); WHITE BLOOD COUNT 17.5 10^3/ul (4.8-10.8)
[2017-01-27 00:15] LABS: AADO2 Arterial 478.1 mmHg (7.0-24.0); Allen Test ACCEPTAB; Arterial Base Excess -8.5 mmol/L (-3.0-3); Arterial COHb 0.2 % (0.0-3.0); Arterial Fraction of Oxyhgb 94.9 % (93.0-99.0); Arterial HCO3 15.8 mmol/L (22.0-26.0); Arterial MetHb 0.4 % (0.0-1.5); MODE VENT - AC
[2017-01-27 00:24] LABS: MAGNESIUM 1.9 mg/dl (1.7-2.5); PHOSPHORUS 5.9 mg/dl (2.5-4.9)
[2017-01-27 00:53] LABS: ALBUMIN 2.8 g/dl (3.3-4.9); POTASSIUM 4.3 mmol/L (3.5-5.1)
[2017-01-27 00:55] LABS: BILIRUBIN,INDIRECT 0.1 mg/dl (0-1.1); BILIRUBIN,TOTAL 0.1 mg/dl (0.2-1.3); CREATININE 2.51 mg/dl (0.61-1.24)
[2017-01-27 00:56] LABS: ALBUMIN/GLOBULIN RATIO 1.07; CALCIUM 8.1 mg/dl (8.4-10.2); TOTAL PROTEIN 5.4 g/dl (6.1-8.1)
[2017-01-27] MEDS: ACCU-CHEK XX SCH ×13 (01:16→12:02)
[2017-01-27 01:18] LABS: TROPONIN-I 25.6 ng/ml (0.00-0.12)
[2017-01-27] MEDS: FENTAnyl (DRIP) 1000 mcg/100mL 100 ML IV SCH (04:44)
[2017-01-27 04:52] LABS: AADO2 Arterial 617.4 mmHg (7.0-24.0); Allen Test ACCEPTAB; Arterial Base Excess -9.2 mmol/L (-3.0-3); Arterial COHb 0.1 % (0.0-3.0); Arterial Fraction of Oxyhgb 92.8 % (93.0-99.0); Arterial HCO3 16.3 mmol/L (22.0-26.0); Arterial MetHb 0.3 % (0.0-1.5); Arterial Total Hemglobin 14.1 g/dl (12.0-18.0); MODE VENT - AC
[2017-01-27 05:50] LABS: ADD SCAN DIFF NO
[2017-01-27 05:53] LABS: BASOPHILS % 0.2 % (0.0-2.0); EOSINOPHILS # 0.1 10^3/ul (0.0-0.5); EOSINOPHILS % 0.4 % (0.0-7.0); HEMATOCRIT 35.3 % (42.0-52.0); HEMOGLOBIN 12.2 g/dl (14.0-18.0); LYMPHOCYTES # 0.8 10^3/ul (0.8-2.9); LYMPHOCYTES % 5.1 % (15.0-51.0); MEAN CORPUSCULAR HGB CONC 34.6 g/dl (32.0-37.0); MEAN CORPUSCULAR VOLUME 89.6 fl (82.0-101.0); MEAN PLATELET VOLUME 10.8 fl (7.4-10.4); MONOCYTE # 1.4 10^3/ul (0.3-0.9); MONOCYTES % 8.8 % (0.0-11.0); NEUTROPHIL # 13.7 10^3/ul (1.6-7.5); NEUTROPHILS % 84.9 % (39.0-77.0); PLATELET COUNT 192 10^3/UL (140-415); RED BLOOD COUNT 3.94 10^6/ul (4.70-6.10); RED CELL DISTRIBUTION WIDTH 13.1 % (11.5-14.5); WHITE BLOOD COUNT 16.2 10^3/ul (4.8-10.8)
[2017-01-27 06:08] LABS: MAGNESIUM 1.8 mg/dl (1.7-2.5); PHOSPHORUS 6.4 mg/dl (2.5-4.9)
[2017-01-27] MEDS: ARTIFICIAL TEARS 15 ML OPH BOTH EYES SCH ×4 (06:13→23:37)
[2017-01-27] MEDS: PANTOPRAZOLE 40 MG INJ IV SCH (06:23)
[2017-01-27 06:24] LABS: TROPONIN-I 16.5 ng/ml (0.00-0.12)
[2017-01-27 06:43] LABS: ALBUMIN 2.7 g/dl (3.3-4.9)
[2017-01-27 06:44] LABS: POTASSIUM 4.2 mmol/L (3.5-5.1)
[2017-01-27 06:46] LABS: BILIRUBIN,INDIRECT 0.1 mg/dl (0-1.1); BILIRUBIN,TOTAL 0.1 mg/dl (0.2-1.3); CREATININE 2.76 mg/dl (0.61-1.24)
[2017-01-27 06:47] LABS: ALBUMIN/GLOBULIN RATIO 0.96; CALCIUM 7.7 mg/dl (8.4-10.2); TOTAL PROTEIN 5.5 g/dl (6.1-8.1)
[2017-01-27] MEDS: INSULIN HUMAN REGULAR 100 UNIT in SOD CHLORIDE 0.9% 99 ML IV SCH (08:01)
--- NOTE | 2017-01-27 08:11 | RADRPT ---
PROCEDURE: XR Chest. CLINICAL INDICATION: vent TECHNIQUE: Single frontal view of the chest was obtained. COMPARISON: Chest x-ray from 01/26/2017 FINDINGS: The endotracheal tube, right-sided PICC line, and enteric tube are unchanged in position. There is stable cardiomegaly and low lung volumes with mildly increased prominence of interstitial m arkings, likely due to a combination of congestive changes and vascular crowding. There is a stable retrocardiac opacity due to atelectasis, infiltrate, and / or effusion. IMPRESSION: Mildly increased pulmonary vascular congestion. Otherwise, no significant interval change. RPTAT: EE Physician Milan Date Time Electronically viewed and signed by Physician Milan on 01/27/2017 08:11 /
[2017-01-27] MEDS: SOD CHLORIDE 0.9% 1,000 ML IV SCH (08:42)
[2017-01-27] MEDS: DOPamine-D5W 1.6 MG/ML 250 ML IV SCH (09:09)
--- NOTE | 2017-01-27 09:52 | CONS ---
Date/Time of Note Date/Time of Note DATE: 01/27/17 TIME: 09:49 Assessment/Plan Assessment/Plan Additional Assessment/Plan Ventilator settings; AC of 24, tidal volume 500, PEEP of 5, 100% FiO2. Patient currently on insulin at 1.5 U/h, IV heparin via protocol, Levophed 20 mics per minute, dopamine at 5 mics per kilogram per minute. Next Assessment recommendations; 1. Patient admitted with cardiac arrest status post along CPR, taken off hypothermia protocol short while ago. 2. Severe hypotension. 3. Mild pulmonary edema. 4. Leukocytosis with a left lower lobe infiltrate possibly indicative of aspiration pneumonia. 5. Worsening renal function. Patient however is not oliguric. 6. Atrial fibrillation. Continue current treatment. Add cefepime 1 g IV every 12 hours. Prognosis depends entirely upon adequate mental status recovery. Consultation Date/Type/Reason Admit Date/Time Jan 25, 2017 at 16:34 Initial Consult Date Type of Consultation: Pulmonary/critical care 24 HR Interval Summary Free Text/Dictation Patient condition remains critical. He has been taken off hypothermia protocol short while ago. He remains sedated. General exam; elderly male, orally intubated, currently unresponsive. Exam/Review of Systems Vital Signs Vitals Vital Signs Date Time Temp Pulse Resp B/P Pulse Ox O2 Delivery O2 Flow Rate FiO2 01/27/17 09:15 75 24 109/60 93 01/27/17 07:30 97.9 01/27/17 05:16 100 01/27/17 03:45 Mechanical Ventilator Intake and Output 01/26/17 01/26/17 01/27/17 15:00 23:00 07:00 Intake Total 1127.403 ml 2149.832 ml 1206.87 ml Output Total 560 ml 490 ml 546 ml Balance 567.403 ml 1659.832 ml 660.87 ml Exam HEENT examination; supple neck, positive JVD. No lymphadenopathy. Midline trachea. No thyromegaly. Patient has dilated pupils nonreactive to light. Patient is edentulous. Orally intubated. Chest examination; diminished but clear breath sounds. S1-S2 audible, no murmurs. Irregular rhythm. Abdomen exam is; soft, nondistended. No organomegaly. Bowel sounds are sluggish. Extremity exam is; no peripheral edema. Pulses are very feeble. [employer] examination; patient currently is unresponsive. Results Result Diagram: 01/27/17 0500 01/27/17 0500 Results 24 hrs Laboratory Tests Test 01/26/17 10:52 01/26/17 11:53 01/26/17 12:00 01/26/17 12:25 Bedside Glucose 129 124 Blood Gas Specimen Source Blood arterial Arterial Blood Date Drawn 01/26/2017 12:02:24 PM Arterial Blood pH (Temp corrected) 7.288 *L Arterial Blood pCO2 (Temp correct) 35.9 Arterial Blood pO2 (Temp corrected) 82.2 Arterial Blood HCO3 17.7 L Arterial Blood Base Excess -9.5 L Arterial Blood Oxygen Saturation 97.2 Brent Test ACCEPTAB Arterial Blood Gas Puncture Site Right Radial Arterial Blood Carboxyhemoglobin 0.2 Arterial Blood Methemoglobin 0.4 Blood Gas A-a O2 Differential 458.0 H Oxyhemoglobin Percent 96.6 Total Hemoglobin 15.3 Blood Gas Temperature 33.0 Blood Gas Respiration Rate 16.0 Blood Gas Actual Respiration Rate 18 Blood Gas Modality VENT-AC FiO2 80.0 Blood Gas Tidal Volume 500.0 Blood Gas Low PEEP Setting 5.0 Blood Gas Inspiratory Pressure 22.0 Blood Gas Critical Value Read Back EMILY ALEX Blood Gas Notified Whom JMD Blood Gas Notified Time 01/26/2017 12:15:12 PM White Blood Count 18.0 H Red Blood Count 4.53 L Hemoglobin 14.1 Hematocrit 40.9 L Mean Corpuscular Volume 90.3 Mean Corpuscular Hemoglobin 31.1 Mean Corpuscular Hemoglobin Concent 34.5 Red Cell Distribution Width 13.0 Platelet Count 249 Mean Platelet Volume 11.0 H Neutrophils % 87.1 H Lymphocytes % 4.0 L Monocytes % 8.2 Eosinophils % 0.0 Basophils % 0.1 Nucleated Red Blood Cells % 0.0 Neutrophils # 15.7 H Lymphocytes # 0.7 L Monocytes # 1.5 H Eosinophils # 0.0 Basophils # 0.0 Nucleated Red Blood Cells # 0.0 Prothrombin Time 14.2 Prothrombin Time Ratio 1.1 INR International Normalized Ratio 1.10 Activated Partial Thromboplast Time 32.1 Fibrinogen 424.0 # D-Dimer > 39329.00 H Phosphorus Level 2.7 Magnesium Level 2.9 #H Amylase Level 91 Lipase 194 Test 01/26/17 12:34 01/26/17 12:41 01/26/17 14:12 01/26/17 14:20 Bedside Glucose 113 123 Sodium Level 137 139 Potassium Level 3.5 4.1 Chloride Level 108 106 Carbon Dioxide Level 19 L 20 L Anion Gap 14 17 H Blood Urea Nitrogen 36 H 37 H Creatinine 2.29 H 2.37 H Glucose Level 141 138 Calcium Level 8.7 8.5 Total Bilirubin 0.0 L Direct Bilirubin 0.00 Indirect Bilirubin 0.0 Aspartate Amino Transf (AST/SGOT) 240 H Alanine Aminotransferase (ALT/SGPT) 113 H Alkaline Phosphatase 71 Total Protein 6.4 Albumin 3.5 Globulin 2.90 Albumin/Globulin Ratio 1.20 White Blood Count 18.8 H Red Blood Count 4.52 L Hemoglobin 14.2 Hematocrit 40.9 L Mean Corpuscular Volume 90.5 Mean Corpuscular Hemoglobin 31.4 Mean Corpuscular Hemoglobin Concent 34.7 Red Cell Distribution Width 12.9 Platelet Count 247 Mean Platelet Volume 10.8 H Neutrophils % 85.5 H Lymphocytes % 3.7 L Monocytes % 10.2 Eosinophils % 0.0 Basophils % 0.1 Nucleated Red Blood Cells % 0.0 Neutrophils # 16.0 H Lymphocytes # 0.7 L Monocytes # 1.9 H Eosinophils # 0.0 Basophils # 0.0 Nucleated Red Blood Cells # 0.0 Prothrombin Time 13.9 Prothrombin Time Ratio 1.1 INR International Normalized Ratio 1.07 Activated Partial Thromboplast Time 30.1 Creatine Kinase 1216 H Creatine Kinase Index 10.9 Creatinine Kinase MB (Mass) 133.00 H Troponin I 47.000 *H Test 01/26/17 15:25 01/26/17 17:00 01/26/17 18:00 01/26/17 18:23 Bedside Glucose 108 134 165 Blood Gas Specimen Source Blood arterial Arterial Blood Date Drawn 01/26/2017 7:15:56 PM Arterial Blood pH (Temp corrected) 7.368 Arterial Blood pCO2 (Temp correct) 26.9 L Arterial Blood pO2 (Temp corrected) 65.2 L Arterial Blood HCO3 15.7 L Arterial Blood Base Excess -9.0 L Arterial Blood Oxygen Saturation 95.8 Brent Test ACCEPTAB Arterial Blood Gas Puncture Site Right Radial Arterial Blood Carboxyhemoglobin 0.3 Arterial Blood Methemoglobin 0.3 Blood Gas A-a O2 Differential 483.3 H Oxyhemoglobin Percent 95.2 Total Hemoglobin 14.7 Blood Gas Temperature 33.7 Blood Gas Respiration Rate 24.0 Blood Gas Actual Respiration Rate 24 Blood Gas Modality VENT - AC FiO2 80.0 Blood Gas Tidal Volume 500.0 Blood Gas Low PEEP Setting 5.0 Blood Gas Notified Whom IZAIAH Blood Gas Notified Time 01/26/2017 7:29:33 PM Test 01/26/17 18:25 01/26/17 18:50 01/26/17 19:46 01/26/17 20:29 White Blood Count 19.6 H Red Blood Count 4.38 L Hemoglobin 13.5 L Hematocrit 39.1 L Mean Corpuscular Volume 89.3 Mean Corpuscular Hemoglobin 30.8 Mean Corpuscular Hemoglobin Concent 34.5 Red Cell Distribution Width 12.9 Platelet Count 234 Mean Platelet Volume 11.3 H Neutrophils % 84.9 H Lymphocytes % 4.8 L Monocytes % 9.8 Eosinophils % 0.0 Basophils % 0.1 Nucleated Red Blood Cells % 0.0 Neutrophils # 16.6 H Lymphocytes # 0.9 Monocytes # 1.9 H Eosinophils # 0.0 Basophils # 0.0 Nucleated Red Blood Cells # 0.0 Sodium Level 137 Potassium Level 4.6 Chloride Level 105 Carbon Dioxide Level 19 L Anion Gap 18 H Blood Urea Nitrogen 36 H Creatinine 2.47 H Glucose Level 168 Calcium Level 8.1 L Phosphorus Level 5.4 #H Magnesium Level 2.0 Total Bilirubin 0.1 L Direct Bilirubin 0.00 Indirect Bilirubin 0.1 Aspartate Amino Transf (AST/SGOT) 190 H Alanine Aminotransferase (ALT/SGPT) 107 H Alkaline Phosphatase 70 Troponin I 34.900 *H Total Protein 6.1 Albumin 3.1 L Globulin 3.00 Albumin/Globulin Ratio 1.03 Bedside Glucose 154 144 Test 01/26/17 21:27 01/26/17 22:17 01/26/17 23:02 01/26/17 23:25 Bedside Glucose 146 135 127 Prothrombin Time 15.2 H Prothrombin Time Ratio 1.2 INR International Normalized Ratio 1.19 Activated Partial Thromboplast Time 86.1 *H Fibrinogen 438.0 Phosphorus Level 5.9 H Magnesium Level 1.9 Amylase Level 74 Lipase 186 Test 01/27/17 00:00 01/27/17 00:15 01/27/17 01:12 01/27/17 02:22 White Blood Count 17.5 H Red Blood Count 4.17 L Hemoglobin 12.9 L Hematocrit 37.3 L Mean Corpuscular Volume 89.4 Mean Corpuscular Hemoglobin 30.9 Mean Corpuscular Hemoglobin Concent 34.6 Red Cell Distribution Width 13.0 Platelet Count 228 Mean Platelet Volume 11.2 H Neutrophils % 83.1 H Lymphocytes % 8.2 L Monocytes % 8.1 Eosinophils % 0.1 Basophils % 0.1 Nucleated Red Blood Cells % 0.0 Neutrophils # 14.6 H Lymphocytes # 1.4 Monocytes # 1.4 H Eosinophils # 0.0 Basophils # 0.0 Nucleated Red Blood Cells # 0.0 Blood Gas Specimen Source Blood arterial Arterial Blood Date Drawn 01/27/2017 12:00:32 AM Arterial Blood pH (Temp corrected) 7.374 Arterial Blood pCO2 (Temp correct) 27.1 L Arterial Blood pO2 (Temp corrected) 68.0 L Arterial Blood HCO3 15.8 L Arterial Blood Base Excess -8.5 L Arterial Blood Oxygen Saturation 95.5 Brent Test ACCEPTAB Arterial Blood Gas Puncture Site Right Radial Arterial Blood Carboxyhemoglobin 0.2 Arterial Blood Methemoglobin 0.4 Blood Gas A-a O2 Differential 478.1 H Oxyhemoglobin Percent 94.9 Total Hemoglobin 14.0 Blood Gas Temperature 34.9 Blood Gas Respiration Rate 24.0 Blood Gas Actual Respiration Rate 24 Blood Gas Modality VENT - AC FiO2 80.0 Blood Gas Tidal Volume 500.0 Blood Gas Low PEEP Setting 5.0 Blood Gas Notified Whom MA Blood Gas Notified Time 01/27/2017 12:15:22 AM Sodium Level 140 Potassium Level 4.3 Chloride Level 109 Carbon Dioxide Level 18 L Anion Gap 17 H Blood Urea Nitrogen 37 H Creatinine 2.51 H Glucose Level 136 Calcium Level 8.1 L Total Bilirubin 0.1 L Direct Bilirubin 0.00 Indirect Bilirubin 0.1 Aspartate Amino Transf (AST/SGOT) 171 H Alanine Aminotransferase (ALT/SGPT) 97 H Alkaline Phosphatase 68 Troponin I 25.600 *H Total Protein 5.4 L Albumin 2.8 L Globulin 2.60 Albumin/Globulin Ratio 1.07 Bedside Glucose 123 112 105 Test 01/27/17 03:15 01/27/17 04:21 01/27/17 05:00 01/27/17 05:28 Bedside Glucose 111 120 137 White Blood Count 16.2 H Red Blood Count 3.94 L Hemoglobin 12.2 L Hematocrit 35.3 L Mean Corpuscular Volume 89.6 Mean Corpuscular Hemoglobin 31.0 Mean Corpuscular Hemoglobin Concent 34.6 Red Cell Distribution Width 13.1 Platelet Count 192 Mean Platelet Volume 10.8 H Neutrophils % 84.9 H Lymphocytes % 5.1 L Monocytes % 8.8 Eosinophils % 0.4 Basophils % 0.2 Nucleated Red Blood Cells % 0.0 Neutrophils # 13.7 H Lymphocytes # 0.8 Monocytes # 1.4 H Eosinophils # 0.1 Basophils # 0.0 Nucleated Red Blood Cells # 0.0 Activated Partial Thromboplast Time 65.2 H Mix PTT Normal Plasma Immediate Pending Fibrinogen 517.0 #H Blood Gas Specimen Source Blood arterial Arterial Blood Date Drawn 01/27/2017 4:45:54 AM Arterial Blood pH (Temp corrected) 7.310 L Arterial Blood pCO2 (Temp correct) 32.6 L Arterial Blood pO2 (Temp corrected) 65.5 L Arterial Blood HCO3 16.3 L Arterial Blood Base Excess -9.2 L Arterial Blood Oxygen Saturation 93.2 L Brent Test ACCEPTAB Arterial Blood Gas Puncture Site Right Radial Arterial Blood Carboxyhemoglobin 0.1 Arterial Blood Methemoglobin 0.3 Blood Gas A-a O2 Differential 617.4 H Oxyhemoglobin Percent 92.8 L Total Hemoglobin 14.1 Blood Gas Temperature 36.0 Blood Gas Respiration Rate 24.0 Blood Gas Actual Respiration Rate 24 Blood Gas Modality VENT - AC FiO2 100.0 Blood Gas Tidal Volume 500.0 Blood Gas Low PEEP Setting 5.0 Blood Gas Inspiratory Pressure 24.0 Blood Gas Critical Value Read Back OTILIA ALVARADO RN Blood Gas Notified Whom BR Blood Gas Notified Time 01/27/2017 4:52:30 AM Sodium Level 139 Potassium Level 4.2 Chloride Level 107 Carbon Dioxide Level 18 L Anion Gap 18 H Blood Urea Nitrogen 38 H Creatinine 2.76 H Glucose Level 135 Lactic Acid Level 1.8 Calcium Level 7.7 L Phosphorus Level 6.4 H Magnesium Level 1.8 Total Bilirubin 0.1 L Direct Bilirubin 0.00 Indirect Bilirubin 0.1 Aspartate Amino Transf (AST/SGOT) 147 H Alanine Aminotransferase (ALT/SGPT) 89 H Alkaline Phosphatase 63 Troponin I 16.500 *H Total Protein 5.5 L Albumin 2.7 L Globulin 2.80 Albumin/Globulin Ratio 0.96 Amylase Level 55 Lipase 99 Test 01/27/17 06:13 01/27/17 07:50 01/27/17 09:06 Bedside Glucose 129 120 129 Medications Medications Current Medications Dopamine HCl/ Dextrose 250 ml @ 7.841 mls/ hr TITRATE IV Last administered on 01/27/17 09:09; Admin Dose 15.683 MLS/HR; Start 01/25/17 at 16:00 Miscellaneous Information 1 ea NOTE XX ; Start 01/25/17 at 16:30 Glucose (Glutose) 15 gm Q15M PRN PO DECREASED GLUCOSE; Start 01/25/17 at 16:30 Glucose (Glutose) 22.5 gm Q15M PRN PO DECREASED GLUCOSE; Start 01/25/17 at 16: 30 Dextrose (D50w Syringe) 25 ml Q15M PRN IV DECREASED GLUCOSE; Start 01/25/17 at 16:30 Dextrose (D50w Syringe) 50 ml Q15M PRN IV DECREASED GLUCOSE; Start 01/25/17 at 16:30 Glucagon (Glucagen) 1 mg Q15M PRN IM DECREASED GLUCOSE; Start 01/25/17 at 16:30 Glucose (Glutose) 15 gm Q15M PRN BUCCAL DECREASED GLUCOSE; Start 01/25/17 at 16 :30 Fentanyl (Sublimaze) 25 mcg Q10M PRN IV SEDATION; Start 01/25/17 at 16:30 Meperidine HCl (Demerol) 12.5 mg Q4H PRN IV POST OPERATIVE SHIVERING; Start at 16:30 Eye Lubricant (Artificial Tears Oph) 2 drop Q6 BOTH EYES Last administered on 06:13; Admin Dose 2 DROP; Start 01/25/17 at 18:00 Diagnostic Test (Pha) (Accu-Chek) 1 ea Q1H XX Last administered on 01/27/17 09 :28; Admin Dose 1 EA; Start 01/25/17 at 19:30 Dextrose (D50w Syringe) 25 ml Q15M PRN IV Till BS 80 mg/dL or above x2; Start 01/25/17 at 19:30 Dextrose 50 ml 50 ml Q15M PRN IV Till BS 80 mg/dL or above x2; Start 01/25/17 at 19:30 Sodium Chloride (NS) 1,000 ml @ 75 mls/hr [id number] IV Last administered on 01/27 08:42; Admin Dose 75 MLS/HR; Start 01/25/17 at 19:30 Pantoprazole (Protonix Iv) 40 mg DAILY@06 IV Last administered on 01/27/17 06: 23; Admin Dose 40 MG; Start 01/26/17 at 06:00 Ondansetron HCl 4 mg 4 mg Q6H PRN IV NAUSEA AND/OR VOMITING; Start 01/25/17 at 19:30 Norepinephrine 16 mg/Dextrose 500 ml @ 1.87 mls/hr TITRATE IV Last administered on 01/27/17 04:44; Admin Dose 37.5 MLS/HR; Start 01/25/17 at 23:30 Midazolam HCl (Versed) 50 ml @ 1 mls/hr TITRATE IV Last administered on 02:10; Admin Dose 1 MLS/HR; Start 01/26/17 at 02:00 Aspirin (Aspirin) 81 mg DAILY NGT Last administered on 01/26/17 15:03; Admin Dose 81 MG; Start 01/26/17 at 14:30 Atorvastatin Calcium (Lipitor) 80 mg HS PO Last administered on 01/26/17 20:28 ; Admin Dose 80 MG; Start 01/26/17 at 21:00 CONCETTA GARCIA Jan 27, 2017 09:52
[2017-01-27] MEDS: ASPIRIN 81 MG TAB NGT SCH (10:07)
[2017-01-27] MEDS: CEFEPIME 1GM/50 ML (PMX) 50 ML IVPB SCH (11:16)
[2017-01-27 12:27] LABS: AADO2 Arterial 601.7 mmHg (7.0-24.0); Allen Test ACCEPTAB; Arterial Base Excess -10.9 mmol/L (-3.0-3); Arterial COHb 0.3 % (0.0-3.0); Arterial Fraction of Oxyhgb 93.4 % (93.0-99.0); Arterial HCO3 14.6 mmol/L (22.0-26.0); Arterial MetHb 0.4 % (0.0-1.5); Arterial Total Hemglobin 13.2 g/dl (12.0-18.0); MODE VENT - AC
--- NOTE | 2017-01-27 12:39 | PN ---
Date/Time of Note Date/Time of Note DATE: 01/27/17 TIME: 12:30 Assessment/Plan VTE Prophylaxis VTE Prophylaxis Intervention: heparin Lines/Catheters IV Catheter Type (from Nrs): Peripheral IV Urinary Cath still in place: Yes Reason Cath still needed: urinary retention Assessment/Plan Chief Complaint/Hosp Course Assessment/Plan: 81-year-old male who came in after cardiac arrest at home, managed for the followin. Cardiac arrest with return of spontaneous circulation, status post resuscitation x2. Intubated. - f/u CV and pulm rec's - will get Neuro consult as well, EEG - Continue ICU care and vent Mgt 2. Diabetic ketoacidosis - resolved now - ISS, Lantus 3. Acute respiratory failure, ventilator dependent, secondary to #1. - f/u pulm rec's 4. High blood pressure - pt actually on pressor x 1 now - try to wean as tolerated 5. Dyslipidemia - statin 6. Acute transaminitis which could be secondary to shock liver - monitor 7. Systemic inflammatory response syndrome - Ucx = + Enterococcus and gram (-) rods - continue broad spectrum abx, f/u final cx results 8. NSTEMI - f/u pul and cardio recs / patient is on heparin drip for Nstemi Prophylaxis: Heparin and pepcid Critical care = 45 mins Problems: Subjective 24 Hr Interval Summary Free Text/Dictation Still intubated, on insulin drip, heparin and levophed IV as well. Off hypothermia protocol now. Exam/Review of Systems Vital Signs Vitals Vital Signs Date Time Temp Pulse Resp B/P Pulse Ox O2 Delivery O2 Flow Rate FiO2 01/27/17 11:30 79 19 98/65 95 01/27/17 09:00 100 01/27/17 07:30 97.9 01/27/17 03:45 Mechanical Ventilator Intake and Output 01/26/17 01/26/17 01/27/17 15:00 23:00 07:00 Intake Total 1127.403 ml 2149.832 ml 1206.87 ml Output Total 560 ml 490 ml 546 ml Balance 567.403 ml 1659.832 ml 660.87 ml Exam GENERAL: Obese male. He looks younger than his stated age, completely paralyzed and sedated. HEENT: Head is normocephalic without evidence of trauma. Pupils are sluggish but equal and nondilated. The patient is endotracheally intubated. CHEST: Sounds clear, maybe slightly diminished in the bases but without crackles or rales. CARDIOVASCULAR: Heart sounds are regular without murmurs. ABDOMEN: NG tube is in place. No active drainage at this time. Abdomen is somewhat firm with hypoactive bowel sounds. Tenderness could not be assessed. LOWER EXTREMITIES: Negative for edema. NEUROLOGIC: The patient is paralyzed. SKIN: There was no gross rash or jaundice. Results Result Diagram: 01/27/17 0500 01/27/17 0500 Results 24 hrs Laboratory Tests Test 01/26/17 12:34 01/26/17 12:41 01/26/17 14:12 01/26/17 14:20 Bedside Glucose 113 123 Sodium Level 137 139 Potassium Level 3.5 4.1 Chloride Level 108 106 Carbon Dioxide Level 19 L 20 L Anion Gap 14 17 H Blood Urea Nitrogen 36 H 37 H Creatinine 2.29 H 2.37 H Glucose Level 141 138 Calcium Level 8.7 8.5 Total Bilirubin 0.0 L Direct Bilirubin 0.00 Indirect Bilirubin 0.0 Aspartate Amino Transf (AST/SGOT) 240 H Alanine Aminotransferase (ALT/SGPT) 113 H Alkaline Phosphatase 71 Total Protein 6.4 Albumin 3.5 Globulin 2.90 Albumin/Globulin Ratio 1.20 White Blood Count 18.8 H Red Blood Count 4.52 L Hemoglobin 14.2 Hematocrit 40.9 L Mean Corpuscular Volume 90.5 Mean Corpuscular Hemoglobin 31.4 Mean Corpuscular Hemoglobin Concent 34.7 Red Cell Distribution Width 12.9 Platelet Count 247 Mean Platelet Volume 10.8 H Neutrophils % 85.5 H Lymphocytes % 3.7 L Monocytes % 10.2 Eosinophils % 0.0 Basophils % 0.1 Nucleated Red Blood Cells % 0.0 Neutrophils # 16.0 H Lymphocytes # 0.7 L Monocytes # 1.9 H Eosinophils # 0.0 Basophils # 0.0 Nucleated Red Blood Cells # 0.0 Prothrombin Time 13.9 Prothrombin Time Ratio 1.1 INR International Normalized Ratio 1.07 Activated Partial Thromboplast Time 30.1 Creatine Kinase 1216 H Creatine Kinase Index 10.9 Creatinine Kinase MB (Mass) 133.00 H Troponin I 47.000 *H Test 01/26/17 15:25 01/26/17 17:00 01/26/17 18:00 01/26/17 18:23 Bedside Glucose 108 134 165 Blood Gas Specimen Source Blood arterial Arterial Blood Date Drawn 01/26/2017 7:15:56 PM Arterial Blood pH (Temp corrected) 7.368 Arterial Blood pCO2 (Temp correct) 26.9 L Arterial Blood pO2 (Temp corrected) 65.2 L Arterial Blood HCO3 15.7 L Arterial Blood Base Excess -9.0 L Arterial Blood Oxygen Saturation 95.8 Brent Test ACCEPTAB Arterial Blood Gas Puncture Site Right Radial Arterial Blood Carboxyhemoglobin 0.3 Arterial Blood Methemoglobin 0.3 Blood Gas A-a O2 Differential 483.3 H Oxyhemoglobin Percent 95.2 Total Hemoglobin 14.7 Blood Gas Temperature 33.7 Blood Gas Respiration Rate 24.0 Blood Gas Actual Respiration Rate 24 Blood Gas Modality VENT - AC FiO2 80.0 Blood Gas Tidal Volume 500.0 Blood Gas Low PEEP Setting 5.0 Blood Gas Notified Whom MA Blood Gas Notified Time 01/26/2017 7:29:33 PM Test 01/26/17 18:25 01/26/17 18:50 01/26/17 19:46 01/26/17 20:29 White Blood Count 19.6 H Red Blood Count 4.38 L Hemoglobin 13.5 L Hematocrit 39.1 L Mean Corpuscular Volume 89.3 Mean Corpuscular Hemoglobin 30.8 Mean Corpuscular Hemoglobin Concent 34.5 Red Cell Distribution Width 12.9 Platelet Count 234 Mean Platelet Volume 11.3 H Neutrophils % 84.9 H Lymphocytes % 4.8 L Monocytes % 9.8 Eosinophils % 0.0 Basophils % 0.1 Nucleated Red Blood Cells % 0.0 Neutrophils # 16.6 H Lymphocytes # 0.9 Monocytes # 1.9 H Eosinophils # 0.0 Basophils # 0.0 Nucleated Red Blood Cells # 0.0 Sodium Level 137 Potassium Level 4.6 Chloride Level 105 Carbon Dioxide Level 19 L Anion Gap 18 H Blood Urea Nitrogen 36 H Creatinine 2.47 H Glucose Level 168 Calcium Level 8.1 L Phosphorus Level 5.4 #H Magnesium Level 2.0 Total Bilirubin 0.1 L Direct Bilirubin 0.00 Indirect Bilirubin 0.1 Aspartate Amino Transf (AST/SGOT) 190 H Alanine Aminotransferase (ALT/SGPT) 107 H Alkaline Phosphatase 70 Troponin I 34.900 *H Total Protein 6.1 Albumin 3.1 L Globulin 3.00 Albumin/Globulin Ratio 1.03 Bedside Glucose 154 144 Test 01/26/17 21:27 01/26/17 22:17 01/26/17 23:02 01/26/17 23:25 Bedside Glucose 146 135 127 Prothrombin Time 15.2 H Prothrombin Time Ratio 1.2 INR International Normalized Ratio 1.19 Activated Partial Thromboplast Time 86.1 *H Fibrinogen 438.0 Phosphorus Level 5.9 H Magnesium Level 1.9 Amylase Level 74 Lipase 186 Test 01/27/17 00:00 01/27/17 00:15 01/27/17 01:12 01/27/17 02:22 White Blood Count 17.5 H Red Blood Count 4.17 L Hemoglobin 12.9 L Hematocrit 37.3 L Mean Corpuscular Volume 89.4 Mean Corpuscular Hemoglobin 30.9 Mean Corpuscular Hemoglobin Concent 34.6 Red Cell Distribution Width 13.0 Platelet Count 228 Mean Platelet Volume 11.2 H Neutrophils % 83.1 H Lymphocytes % 8.2 L Monocytes % 8.1 Eosinophils % 0.1 Basophils % 0.1 Nucleated Red Blood Cells % 0.0 Neutrophils # 14.6 H Lymphocytes # 1.4 Monocytes # 1.4 H Eosinophils # 0.0 Basophils # 0.0 Nucleated Red Blood Cells # 0.0 Blood Gas Specimen Source Blood arterial Arterial Blood Date Drawn 01/27/2017 12:00:32 AM Arterial Blood pH (Temp corrected) 7.374 Arterial Blood pCO2 (Temp correct) 27.1 L Arterial Blood pO2 (Temp corrected) 68.0 L Arterial Blood HCO3 15.8 L Arterial Blood Base Excess -8.5 L Arterial Blood Oxygen Saturation 95.5 Brent Test ACCEPTAB Arterial Blood Gas Puncture Site Right Radial Arterial Blood Carboxyhemoglobin 0.2 Arterial Blood Methemoglobin 0.4 Blood Gas A-a O2 Differential 478.1 H Oxyhemoglobin Percent 94.9 Total Hemoglobin 14.0 Blood Gas Temperature 34.9 Blood Gas Respiration Rate 24.0 Blood Gas Actual Respiration Rate 24 Blood Gas Modality VENT - AC FiO2 80.0 Blood Gas Tidal Volume 500.0 Blood Gas Low PEEP Setting 5.0 Blood Gas Notified Whom [place] Blood Gas Notified Time 01/27/2017 12:15:22 AM Sodium Level 140 Potassium Level 4.3 Chloride Level 109 Carbon Dioxide Level 18 L Anion Gap 17 H Blood Urea Nitrogen 37 H Creatinine 2.51 H Glucose Level 136 Calcium Level 8.1 L Total Bilirubin 0.1 L Direct Bilirubin 0.00 Indirect Bilirubin 0.1 Aspartate Amino Transf (AST/SGOT) 171 H Alanine Aminotransferase (ALT/SGPT) 97 H Alkaline Phosphatase 68 Troponin I 25.600 *H Total Protein 5.4 L Albumin 2.8 L Globulin 2.60 Albumin/Globulin Ratio 1.07 Bedside Glucose 123 112 105 Test 01/27/17 03:15 01/27/17 04:21 01/27/17 05:00 01/27/17 05:28 Bedside Glucose 111 120 137 White Blood Count 16.2 H Red Blood Count 3.94 L Hemoglobin 12.2 L Hematocrit 35.3 L Mean Corpuscular Volume 89.6 Mean Corpuscular Hemoglobin 31.0 Mean Corpuscular Hemoglobin Concent 34.6 Red Cell Distribution Width 13.1 Platelet Count 192 Mean Platelet Volume 10.8 H Neutrophils % 84.9 H Lymphocytes % 5.1 L Monocytes % 8.8 Eosinophils % 0.4 Basophils % 0.2 Nucleated Red Blood Cells % 0.0 Neutrophils # 13.7 H Lymphocytes # 0.8 Monocytes # 1.4 H Eosinophils # 0.1 Basophils # 0.0 Nucleated Red Blood Cells # 0.0 Activated Partial Thromboplast Time 65.2 H Mix PTT Normal Plasma Immediate Pending Fibrinogen 517.0 #H Blood Gas Specimen Source Blood arterial Arterial Blood Date Drawn 01/27/2017 4:45:54 AM Arterial Blood pH (Temp corrected) 7.310 L Arterial Blood pCO2 (Temp correct) 32.6 L Arterial Blood pO2 (Temp corrected) 65.5 L Arterial Blood HCO3 16.3 L Arterial Blood Base Excess -9.2 L Arterial Blood Oxygen Saturation 93.2 L Brent Test ACCEPTAB Arterial Blood Gas Puncture Site Right Radial Arterial Blood Carboxyhemoglobin 0.1 Arterial Blood Methemoglobin 0.3 Blood Gas A-a O2 Differential 617.4 H Oxyhemoglobin Percent 92.8 L Total Hemoglobin 14.1 Blood Gas Temperature 36.0 Blood Gas Respiration Rate 24.0 Blood Gas Actual Respiration Rate 24 Blood Gas Modality VENT - AC FiO2 100.0 Blood Gas Tidal Volume 500.0 Blood Gas Low PEEP Setting 5.0 Blood Gas Inspiratory Pressure 24.0 Blood Gas Critical Value Read Back OTILIA ALVARADO RN Blood Gas Notified Whom BR Blood Gas Notified Time 01/27/2017 4:52:30 AM Sodium Level 139 Potassium Level 4.2 Chloride Level 107 Carbon Dioxide Level 18 L Anion Gap 18 H Blood Urea Nitrogen 38 H Creatinine 2.76 H Glucose Level 135 Lactic Acid Level 1.8 Calcium Level 7.7 L Phosphorus Level 6.4 H Magnesium Level 1.8 Total Bilirubin 0.1 L Direct Bilirubin 0.00 Indirect Bilirubin 0.1 Aspartate Amino Transf (AST/SGOT) 147 H Alanine Aminotransferase (ALT/SGPT) 89 H Alkaline Phosphatase 63 Troponin I 16.500 *H Total Protein 5.5 L Albumin 2.7 L Globulin 2.80 Albumin/Globulin Ratio 0.96 Amylase Level 55 Lipase 99 Test 01/27/17 06:13 01/27/17 07:50 01/27/17 09:06 01/27/17 10:09 Bedside Glucose 129 120 129 158 Test 01/27/17 11:08 01/27/17 12:00 Bedside Glucose 163 172 Blood Gas Specimen Source Blood arterial Arterial Blood Date Drawn 01/27/2017 12:10:42 PM Arterial Blood pH (Temp corrected) 7.277 *L Arterial Blood pCO2 (Temp correct) 32.1 L Arterial Blood pO2 (Temp corrected) 79.2 L Arterial Blood HCO3 14.6 L Arterial Blood Base Excess -10.9 L Arterial Blood Oxygen Saturation 94.1 L Brent Test ACCEPTAB Arterial Blood Gas Puncture Site Right Radial Arterial Blood Carboxyhemoglobin 0.3 Arterial Blood Methemoglobin 0.4 Blood Gas A-a O2 Differential 601.7 H Oxyhemoglobin Percent 93.4 Total Hemoglobin 13.2 Blood Gas Temperature 37.0 Blood Gas Respiration Rate 24.0 Blood Gas Actual Respiration Rate 24 Blood Gas Modality VENT - AC FiO2 100.0 Blood Gas Tidal Volume 500.0 Blood Gas Low PEEP Setting 5.0 Blood Gas Critical Value Read Back A ALEXANDRU DIAZ Blood Gas Notified Whom TITO Blood Gas Notified Time 01/27/2017 12:27:14 PM Medications Medications Current Medications Dopamine HCl/ Dextrose 250 ml @ 7.841 mls/ hr TITRATE IV Last administered on 01/27/17 09:09; Admin Dose 15.683 MLS/HR; Start 01/25/17 at 16:00 Miscellaneous Information 1 ea NOTE XX ; Start 01/25/17 at 16:30 Glucose (Glutose) 15 gm Q15M PRN PO DECREASED GLUCOSE; Start 01/25/17 at 16:30 Glucose (Glutose) 22.5 gm Q15M PRN PO DECREASED GLUCOSE; Start 01/25/17 at 16: 30 Dextrose (D50w Syringe) 25 ml Q15M PRN IV DECREASED GLUCOSE; Start 01/25/17 at 16:30 Dextrose (D50w Syringe) 50 ml Q15M PRN IV DECREASED GLUCOSE; Start 01/25/17 at 16:30 Glucagon (Glucagen) 1 mg Q15M PRN IM DECREASED GLUCOSE; Start 01/25/17 at 16:30 Glucose (Glutose) 15 gm Q15M PRN BUCCAL DECREASED GLUCOSE; Start 01/25/17 at 16 :30 Fentanyl (Sublimaze) 25 mcg Q10M PRN IV SEDATION; Start 01/25/17 at 16:30 Meperidine HCl (Demerol) 12.5 mg Q4H PRN IV POST OPERATIVE SHIVERING; Start at 16:30 Eye Lubricant (Artificial Tears Oph) 2 drop Q6 BOTH EYES Last administered on 11:21; Admin Dose 2 DROP; Start 01/25/17 at 18:00 Diagnostic Test (Pha) (Accu-Chek) 1 ea Q1H XX Last administered on 01/27/17 12 :02; Admin Dose 1 EA; Start 01/25/17 at 19:30 Dextrose (D50w Syringe) 25 ml Q15M PRN IV Till BS 80 mg/dL or above x2; Start 01/25/17 at 19:30 Dextrose 50 ml 50 ml Q15M PRN IV Till BS 80 mg/dL or above x2; Start 01/25/17 at 19:30 Sodium Chloride (NS) 1,000 ml @ 75 mls/hr [id number] IV Last administered on 01/27 08:42; Admin Dose 75 MLS/HR; Start 01/25/17 at 19:30 Pantoprazole (Protonix Iv) 40 mg DAILY@06 IV Last administered on 01/27/17 06: 23; Admin Dose 40 MG; Start 01/26/17 at 06:00 Ondansetron HCl 4 mg 4 mg Q6H PRN IV NAUSEA AND/OR VOMITING; Start 01/25/17 at 19:30 Norepinephrine 16 mg/Dextrose 500 ml @ 1.87 mls/hr TITRATE IV Last administered on 01/27/17 04:44; Admin Dose 37.5 MLS/HR; Start 01/25/17 at 23:30 Midazolam HCl (Versed) 50 ml @ 1 mls/hr TITRATE IV Last administered on 02:10; Admin Dose 1 MLS/HR; Start 01/26/17 at 02:00 Aspirin (Aspirin) 81 mg DAILY NGT Last administered on 01/27/17 10:07; Admin Dose 81 MG; Start 01/26/17 at 14:30 Atorvastatin Calcium 80 mg 80 mg HS PO Last administered on 01/26/17 20:28; Admin Dose 80 MG; Start 01/26/17 at 21:00 Cefepime HCl (Maxipime 1gm/50 ml (Pmx)) 50 ml @ 100 mls/hr Q24H IVPB Last administered on 01/27/17 11:16; Admin Dose 100 MLS/HR; Start 01/27/17 at 11:00 KENDRA CAROLINA Jan 27, 2017 12:39
[2017-01-27] MEDS: HEPARIN 25000 UNITS/250 ML 250 ML IV SCH (12:42)
[2017-01-27] MEDS ORDERED: NA BICARBONATE 8.4% 50 ML SYG IV STA (12:45)
[2017-01-27 13:12] LABS: PARTIAL THROMBOPLASTIN TIME 56.6 Sec (25.0-35.0)
[2017-01-27] MEDS ORDERED: NA BICARBONATE 8.4% 50 ML SYG IV ONE (13:30)
[2017-01-27] MEDS: INSULIN GLARGINE [LANtus] 3 ML PEN SC SCH (14:32)
[2017-01-27] MEDS: SODIUM BICARBONATE (IV ADD) 50 MEQ in DEXTROSE 5% 1,000 ML IV SCH (14:39)
--- NOTE | 2017-01-27 14:43 | CONS ---
Date/Time of Note Date/Time of Note DATE: 01/27/17 TIME: 14:39 Assessment/Plan Assessment/Plan Additional Assessment/Plan Cardiopulmonary arrest Non-ST elevation [place] Cardiomyopathy with ejection fraction 50% CAD with history of PCI Acute kidney injury Transaminitis Encephalopathy -Patient currently status post hypothermia protocol. Troponins are trending down. Neurologic status is still of significant concern, patient not withdrawing from pain and pupils are currently fixed and dilated. If no contraindication, would hold any sedation, consider EEG when appropriate. Continue aspirin, statin and IV heparin at the current time. No beta-ita given recent hypotension, no TRACE inhibitor given acute kidney injury. Extensive discussion had with patient's son Roly who is an RN over the phone at [phone] Consultation Date/Type/Reason Admit Date/Time Jan 25, 2017 at 16:34 Initial Consult Date Type of Consultation: cv 24 HR Interval Summary Free Text/Dictation Patient status post hypothermia protocol. No significant arrhythmias seen overnight. Exam/Review of Systems Vital Signs Vitals Vital Signs Date Time Temp Pulse Resp B/P Pulse Ox O2 Delivery O2 Flow Rate FiO2 01/27/17 12:00 77 01/27/17 11:30 19 98/65 95 01/27/17 09:00 100 01/27/17 07:30 97.9 01/27/17 03:45 Mechanical Ventilator Intake and Output 01/26/17 01/26/17 01/27/17 15:00 23:00 07:00 Intake Total 1127.403 ml 2149.832 ml 1206.87 ml Output Total 560 ml 490 ml 546 ml Balance 567.403 ml 1659.832 ml 660.87 ml Exam No response to verbal stimuli, tactile and no withdrawal from pain Head: normocephalic Eyes: other (Fixed and dilated) ENMT: intubated Respiratory: other (Coarse breath sounds bilaterally, no wheezing) Cardiovascular: other (S1-S2 heard), regular rate and rhythm Gastrointestinal: bowel sounds (Hypoactive), other (No grimacing with palpation ), soft Extremities: edema Results Result Diagram: 01/27/17 0500 01/27/17 0500 Results 24 hrs Laboratory Tests Test 01/26/17 15:25 01/26/17 17:00 01/26/17 18:00 01/26/17 18:23 Bedside Glucose 108 134 165 Blood Gas Specimen Source Blood arterial Arterial Blood Date Drawn 01/26/2017 7:15:56 PM Arterial Blood pH (Temp corrected) 7.368 Arterial Blood pCO2 (Temp correct) 26.9 L Arterial Blood pO2 (Temp corrected) 65.2 L Arterial Blood HCO3 15.7 L Arterial Blood Base Excess -9.0 L Arterial Blood Oxygen Saturation 95.8 Brent Test ACCEPTAB Arterial Blood Gas Puncture Site Right Radial Arterial Blood Carboxyhemoglobin 0.3 Arterial Blood Methemoglobin 0.3 Blood Gas A-a O2 Differential 483.3 H Oxyhemoglobin Percent 95.2 Total Hemoglobin 14.7 Blood Gas Temperature 33.7 Blood Gas Respiration Rate 24.0 Blood Gas Actual Respiration Rate 24 Blood Gas Modality VENT - AC FiO2 80.0 Blood Gas Tidal Volume 500.0 Blood Gas Low PEEP Setting 5.0 Blood Gas Notified Whom [place] Blood Gas Notified Time 01/26/2017 7:29:33 PM Test 01/26/17 18:25 01/26/17 18:50 01/26/17 19:46 01/26/17 20:29 White Blood Count 19.6 H Red Blood Count 4.38 L Hemoglobin 13.5 L Hematocrit 39.1 L Mean Corpuscular Volume 89.3 Mean Corpuscular Hemoglobin 30.8 Mean Corpuscular Hemoglobin Concent 34.5 Red Cell Distribution Width 12.9 Platelet Count 234 Mean Platelet Volume 11.3 H Neutrophils % 84.9 H Lymphocytes % 4.8 L Monocytes % 9.8 Eosinophils % 0.0 Basophils % 0.1 Nucleated Red Blood Cells % 0.0 Neutrophils # 16.6 H Lymphocytes # 0.9 Monocytes # 1.9 H Eosinophils # 0.0 Basophils # 0.0 Nucleated Red Blood Cells # 0.0 Sodium Level 137 Potassium Level 4.6 Chloride Level 105 Carbon Dioxide Level 19 L Anion Gap 18 H Blood Urea Nitrogen 36 H Creatinine 2.47 H Glucose Level 168 Calcium Level 8.1 L Phosphorus Level 5.4 #H Magnesium Level 2.0 Total Bilirubin 0.1 L Direct Bilirubin 0.00 Indirect Bilirubin 0.1 Aspartate Amino Transf (AST/SGOT) 190 H Alanine Aminotransferase (ALT/SGPT) 107 H Alkaline Phosphatase 70 Troponin I 34.900 *H Total Protein 6.1 Albumin 3.1 L Globulin 3.00 Albumin/Globulin Ratio 1.03 Bedside Glucose 154 144 Test 01/26/17 21:27 01/26/17 22:17 01/26/17 23:02 01/26/17 23:25 Bedside Glucose 146 135 127 Prothrombin Time 15.2 H Prothrombin Time Ratio 1.2 INR International Normalized Ratio 1.19 Activated Partial Thromboplast Time 86.1 *H Fibrinogen 438.0 Phosphorus Level 5.9 H Magnesium Level 1.9 Amylase Level 74 Lipase 186 Test 01/27/17 00:00 01/27/17 00:15 01/27/17 01:12 01/27/17 02:22 White Blood Count 17.5 H Red Blood Count 4.17 L Hemoglobin 12.9 L Hematocrit 37.3 L Mean Corpuscular Volume 89.4 Mean Corpuscular Hemoglobin 30.9 Mean Corpuscular Hemoglobin Concent 34.6 Red Cell Distribution Width 13.0 Platelet Count 228 Mean Platelet Volume 11.2 H Neutrophils % 83.1 H Lymphocytes % 8.2 L Monocytes % 8.1 Eosinophils % 0.1 Basophils % 0.1 Nucleated Red Blood Cells % 0.0 Neutrophils # 14.6 H Lymphocytes # 1.4 Monocytes # 1.4 H Eosinophils # 0.0 Basophils # 0.0 Nucleated Red Blood Cells # 0.0 Blood Gas Specimen Source Blood arterial Arterial Blood Date Drawn 01/27/2017 12:00:32 AM Arterial Blood pH (Temp corrected) 7.374 Arterial Blood pCO2 (Temp correct) 27.1 L Arterial Blood pO2 (Temp corrected) 68.0 L Arterial Blood HCO3 15.8 L Arterial Blood Base Excess -8.5 L Arterial Blood Oxygen Saturation 95.5 Brent Test ACCEPTAB Arterial Blood Gas Puncture Site Right Radial Arterial Blood Carboxyhemoglobin 0.2 Arterial Blood Methemoglobin 0.4 Blood Gas A-a O2 Differential 478.1 H Oxyhemoglobin Percent 94.9 Total Hemoglobin 14.0 Blood Gas Temperature 34.9 Blood Gas Respiration Rate 24.0 Blood Gas Actual Respiration Rate 24 Blood Gas Modality VENT - AC FiO2 80.0 Blood Gas Tidal Volume 500.0 Blood Gas Low PEEP Setting 5.0 Blood Gas Notified Whom [place] Blood Gas Notified Time 01/27/2017 12:15:22 AM Sodium Level 140 Potassium Level 4.3 Chloride Level 109 Carbon Dioxide Level 18 L Anion Gap 17 H Blood Urea Nitrogen 37 H Creatinine 2.51 H Glucose Level 136 Calcium Level 8.1 L Total Bilirubin 0.1 L Direct Bilirubin 0.00 Indirect Bilirubin 0.1 Aspartate Amino Transf (AST/SGOT) 171 H Alanine Aminotransferase (ALT/SGPT) 97 H Alkaline Phosphatase 68 Troponin I 25.600 *H Total Protein 5.4 L Albumin 2.8 L Globulin 2.60 Albumin/Globulin Ratio 1.07 Bedside Glucose 123 112 105 Test 01/27/17 03:15 01/27/17 04:21 01/27/17 05:00 01/27/17 05:23 Bedside Glucose 111 120 White Blood Count 16.2 H Red Blood Count 3.94 L Hemoglobin 12.2 L Hematocrit 35.3 L Mean Corpuscular Volume 89.6 Mean Corpuscular Hemoglobin 31.0 Mean Corpuscular Hemoglobin Concent 34.6 Red Cell Distribution Width 13.1 Platelet Count 192 Mean Platelet Volume 10.8 H Neutrophils % 84.9 H Lymphocytes % 5.1 L Monocytes % 8.8 Eosinophils % 0.4 Basophils % 0.2 Nucleated Red Blood Cells % 0.0 Neutrophils # 13.7 H Lymphocytes # 0.8 Monocytes # 1.4 H Eosinophils # 0.1 Basophils # 0.0 Nucleated Red Blood Cells # 0.0 Activated Partial Thromboplast Time 65.2 H Mix PTT Normal Plasma Immediate Pending Fibrinogen 517.0 #H Blood Gas Specimen Source Blood arterial Arterial Blood Date Drawn 01/27/2017 4:45:54 AM Arterial Blood pH (Temp corrected) 7.310 L Arterial Blood pCO2 (Temp correct) 32.6 L Arterial Blood pO2 (Temp corrected) 65.5 L Arterial Blood HCO3 16.3 L Arterial Blood Base Excess -9.2 L Arterial Blood Oxygen Saturation 93.2 L Brent Test ACCEPTAB Arterial Blood Gas Puncture Site Right Radial Arterial Blood Carboxyhemoglobin 0.1 Arterial Blood Methemoglobin 0.3 Blood Gas A-a O2 Differential 617.4 H Oxyhemoglobin Percent 92.8 L Total Hemoglobin 14.1 Blood Gas Temperature 36.0 Blood Gas Respiration Rate 24.0 Blood Gas Actual Respiration Rate 24 Blood Gas Modality VENT - AC FiO2 100.0 Blood Gas Tidal Volume 500.0 Blood Gas Low PEEP Setting 5.0 Blood Gas Inspiratory Pressure 24.0 Blood Gas Critical Value Read Back OTILIA ALVARADO RN Blood Gas Notified Whom BR Blood Gas Notified Time 01/27/2017 4:52:30 AM Sodium Level 139 Potassium Level 4.2 Chloride Level 107 Carbon Dioxide Level 18 L Anion Gap 18 H Blood Urea Nitrogen 38 H Creatinine 2.76 H Glucose Level 135 Lactic Acid Level 1.8 Calcium Level 7.7 L Phosphorus Level 6.4 H Magnesium Level 1.8 Total Bilirubin 0.1 L Direct Bilirubin 0.00 Indirect Bilirubin 0.1 Aspartate Amino Transf (AST/SGOT) 147 H Alanine Aminotransferase (ALT/SGPT) 89 H Alkaline Phosphatase 63 Troponin I 16.500 *H Total Protein 5.5 L Albumin 2.7 L Globulin 2.80 Albumin/Globulin Ratio 0.96 Amylase Level 55 Lipase 99 Hemoglobin A1c 7.2 H Test 01/27/17 05:28 01/27/17 06:13 01/27/17 07:50 01/27/17 09:06 Bedside Glucose 137 129 120 129 Test 01/27/17 10:09 01/27/17 11:08 01/27/17 12:00 01/27/17 12:39 Bedside Glucose 158 163 172 Blood Gas Specimen Source Blood arterial Arterial Blood Date Drawn 01/27/2017 12:10:42 PM Arterial Blood pH (Temp corrected) 7.277 *L Arterial Blood pCO2 (Temp correct) 32.1 L Arterial Blood pO2 (Temp corrected) 79.2 L Arterial Blood HCO3 14.6 L Arterial Blood Base Excess -10.9 L Arterial Blood Oxygen Saturation 94.1 L Brent Test ACCEPTAB Arterial Blood Gas Puncture Site Right Radial Arterial Blood Carboxyhemoglobin 0.3 Arterial Blood Methemoglobin 0.4 Blood Gas A-a O2 Differential 601.7 H Oxyhemoglobin Percent 93.4 Total Hemoglobin 13.2 Blood Gas Temperature 37.0 Blood Gas Respiration Rate 24.0 Blood Gas Actual Respiration Rate 24 Blood Gas Modality VENT - AC FiO2 100.0 Blood Gas Tidal Volume 500.0 Blood Gas Low PEEP Setting 5.0 Blood Gas Critical Value Read Back A ALEXANDRU DIAZ Blood Gas Notified Whom KARLOD Blood Gas Notified Time 01/27/2017 12:27:14 PM Activated Partial Thromboplast Time 56.6 H Mix PTT Normal Plasma Immediate Pending Test 01/27/17 13:24 01/27/17 14:27 Bedside Glucose 207 180 Medications Medications Current Medications Dopamine HCl/ Dextrose 250 ml @ 7.841 mls/ hr TITRATE IV Last administered on 01/27/17t 09:09; Admin Dose 15.683 MLS/HR; Start 01/25/17 at 16:00 Miscellaneous Information 1 ea NOTE XX ; Start 01/25/17 at 16:30 Glucose (Glutose) 15 gm Q15M PRN PO DECREASED GLUCOSE; Start 01/25/17 at 16:30 Glucose (Glutose) 22.5 gm Q15M PRN PO DECREASED GLUCOSE; Start 01/25/17 at 16: 30 Dextrose (D50w Syringe) 25 ml Q15M PRN IV DECREASED GLUCOSE; Start 01/25/17 at 16:30 Dextrose (D50w Syringe) 50 ml Q15M PRN IV DECREASED GLUCOSE; Start 01/25/17 at 16:30 Glucagon (Glucagen) 1 mg Q15M PRN IM DECREASED GLUCOSE; Start 01/25/17 at 16:30 Glucose (Glutose) 15 gm Q15M PRN BUCCAL DECREASED GLUCOSE; Start 01/25/17 at 16 :30 Fentanyl (Sublimaze) 25 mcg Q10M PRN IV SEDATION; Start 01/25/17 at 16:30 Meperidine HCl (Demerol) 12.5 mg Q4H PRN IV POST OPERATIVE SHIVERING; Start at 16:30 Eye Lubricant (Artificial Tears Oph) 2 drop Q6 BOTH EYES Last administered on 11:21; Admin Dose 2 DROP; Start 01/25/17 at 18:00 Dextrose (D50w Syringe) 25 ml Q15M PRN IV Till BS 80 mg/dL or above x2; Start 01/25/17 at 19:30 Dextrose 50 ml 50 ml Q15M PRN IV Till BS 80 mg/dL or above x2; Start 01/25/17 at 19:30 Sodium Chloride (NS) 1,000 ml @ 75 mls/hr [id number] IV Last administered on 01/27 08:42; Admin Dose 75 MLS/HR; Start 01/25/17 at 19:30 Pantoprazole (Protonix Iv) 40 mg DAILY@06 IV Last administered on 01/27/17 06: 23; Admin Dose 40 MG; Start 01/26/17 at 06:00 Ondansetron HCl 4 mg 4 mg Q6H PRN IV NAUSEA AND/OR VOMITING; Start 01/25/17 at 19:30 Norepinephrine 16 mg/Dextrose 500 ml @ 1.87 mls/hr TITRATE IV Last administered on 01/27/17 04:44; Admin Dose 37.5 MLS/HR; Start 01/25/17 at 23:30 Midazolam HCl (Versed) 50 ml @ 1 mls/hr TITRATE IV Last administered on 02:10; Admin Dose 1 MLS/HR; Start 01/26/17 at 02:00 Aspirin (Aspirin) 81 mg DAILY NGT Last administered on 01/27/17 10:07; Admin Dose 81 MG; Start 01/26/17 at 14:30 Atorvastatin Calcium 80 mg 80 mg HS PO Last administered on 01/26/17 20:28; Admin Dose 80 MG; Start 01/26/17 at 21:00 Cefepime HCl 50 ml @ 100 mls/hr Q24H IVPB Last administered on 01/27/17 11:16 ; Admin Dose 100 MLS/HR; Start 01/27/17 at 11:00 Sodium Bicarbonate/ Dextrose (Na Bicarb/D5W) 1,050 ml @ 75 mls/hr Q14H IV ; Start 01/27/17 at 13:00 Insulin Glargine (Lantus) 36 unit QAM SC Last administered on 01/27/17 14:32; Admin Dose 36 UNIT; Start 01/27/17 at 14:00 Insulin Aspart (Novolog Insulin Pen) NOVOLOG *MILD* ALGORI... Q4 SC ; Start at 17:00 Chase Stapleton DO Jan 27, 2017 14:43
[2017-01-27 15:01] LABS: 50/50 PTT IMMED 43.9 Sec
[2017-01-27 15:06] LABS: 50/50 PTT 1 HOUR 53.6 Sec
--- NOTE | 2017-01-27 15:53 | RADRPT ---
PROCEDURE: CT brain without contrast CLINICAL INDICATION: Altered mentation, unresponsive TECHNIQUE: CT of the brain without contrast was performed on a multidetector CT scanner, with multi planar reformats. One or more of the following dose reduction techniques were used: Automated expos ure control, adjustment in mA and / or kV according to patient size, use of iterative reconstructive technique. CTDIvol = 54 mGy; DLP = 720 mGy-cm. COMPARISON: None available FINDINGS: There is diffuse hypodensity involving the cerebrum, brainstem and cerebellum with loss of melo-whit e differentiation. There is effacement of the sulci, basal and posterior fossa cisterns, fourth and third ventricle and partial lateral ventricle effacement. Findings are compatible with diffuse, gl obal hypoxic - ischemic injury. No definite acute intracranial hemorrhage is seen. No extra-axial fluid collection is seen. There is no midline shift. There are atherosclerotic calcifications of th e proximal to cranial arteries with the osseous structures are unremarkable. There is partial bilat eral mastoid air cell opacification and partial opacification of the imaged paranasal sinuses with f luid levels seen in the left sphenoid and bilateral posterior ethmoid air cells. IMPRESSION: Findings compatible with diffuse, global hypoxic - ischemic injury. Results called to Buddy Oneal RN at 03:50 p.m., 01/27/2017. RPTAT: VV .Morgan Albrecht MD, Date Time Electronically viewed and signed by .Morgan Albrecht MD, on 01/27/2017 15:52 .O/
[2017-01-27] MEDS: INSULIN ASPART [NOVOLOG] 3 ML PEN SC SCH ×2 (17:26→21:26)
[2017-01-27] MEDS: ATORVASTATIN 80 MG TAB PO SCH (21:24)
--- NOTE | 2017-01-27 22:49 | CONS ---
DATE OF ADMISSION: 01/25/2017 DATE OF CONSULTATION: TYPE OF CONSULTATION: Neurology Thank you, Dr. 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 HISTORY OF PRESENT ILLNESS: The patient is an 81-year-old gentleman who was admitted 2 days ago fol lowing cardiopulmonary arrest at home. According to ER notes, he had pulseless electrical activity requiring epinephrine and defibrillation. Then, he had pulses throughout the transport, but upon hi s admission to the emergency room, again became pulseless. He has history of hypertension, coronary artery disease, dyslipidemia, and diabetes. He was placed on hypothermia. He had CAT scan of the head, which shows diffuse global hypoxic ischemic injury. CURRENT MEDICATIONS: 1. Insulin. 2. Cefepime. 3. Heparin. 4. Atorvastatin. 5. Aspirin. 6. Protonix. He is not sedated anymore. ALLERGIES: NONE. SOCIAL HISTORY: Noncontributory. FAMILY HISTORY: Noncontributory. LABORATORY DATA: Shows 16.2 WBC count, 12 hemoglobin, 35.3 hematocrit, 85% neutrophils. Chemistry: Bicarbonate 18, BUN 38, creatinine 2.76, calcium 7.7, phosphorus 6.4, AST 147, ALT 89. Troponin 1 6. Total protein 5.5, albumin 2.7. Urinalysis 5 to 10 WBCs, 3+ hemoglobin, 2+ protein, glucose is present as well. PHYSICAL EXAMINATION: VITAL SIGNS: Today, 97.9 temperature, 71 pulse, 24 respirations. He is on AC control of 24. Blood pressure 157/64. GENERAL: Not in acute distress, lying in bed. HEENT: Normocephalic, atraumatic head. NECK: No carotid bruits. No thyromegaly. Intubated orally. LUNGS: Clear to auscultation bilaterally. CARDIAC: Normal cardiac rhythm and sounds. ABDOMEN: Soft. EXTREMITIES: No cyanosis, clubbing, or edema. NEUROLOGIC: He is lethargic. Eyes closed. No response to voice, pain, or commands. No response t o visual threat. Pupils about 4 mm, post-surgical, fixed. Extraocular movements absent spontaneous ly and on oculocephalic maneuver. Corneal reflexes are absent. Gag is absent. No movements of fla ccid extremities to pain. He does not over breathe the ventilator. IMPRESSION: Examination could be consistent with brain versus very severe encephalopathy post -anoxic type. EEG was requested and performed. I will review. Will also obtain apnea test. Thank you very much for this interesting consultation. Dictated By: JONEL VILLASENOR/SKYLAR Conf#: [id number] DID#: [id number] CC: JOSEPH SALMERON MD; KENDRA CAROLINA;*EndCC*
--- NOTE | 2017-01-27 23:07 | SP ---
DATE OF PROCEDURE: INDICATION: An 81-year-old gentleman status post cardiopulmonary arrest, unresponsiveness on examin ation, which could be consistent with brain . DESCRIPTION OF PROCEDURE: Routine EEG per electrocerebral silence protocol was recorded digitally. [id number] and [id number] montages were recorded and reviewed. All impedances were measured and recorded. Cap electrodes were placed in accordance with International 10-20 system of electrode placement. FINDINGS: The patient's temperature 97.1, blood pressure 149/60, pulse 72, respiration 24. Absence of background activity was seen throughout the recording with highest settings of sensitivit y to 2 microvolts per mm. EEG consists of cardiac and pulse, as well as respiratory artifacts. IMPRESSION: Abnormal study secondary to electrocerebral silence. In the context of patient's exami nation and laboratory values, this test could be used as secondary confirmatory testing for brain de ath. Usually primary testing consists of apnea test unless patient is not able to tolerate it. Dictated By: JONEL VILLASENOR/SKYLAR Conf#: [id number] DID#: [id number] CC: JOSEPH SALMERON MD;*EndCC*
[2017-01-28] VITALS (101 sets, daily range): BP systolic 70–172; BP diastolic 43–68; PULSE 63–83; RESP 21–26
[2017-01-28] MEDS: DOPamine-D5W 1.6 MG/ML 250 ML IV SCH ×2 (00:08→15:19)
[2017-01-28] MEDS: INSULIN ASPART [NOVOLOG] 3 ML PEN SC SCH ×6 (00:36→20:47)
[2017-01-28] MEDS: SODIUM BICARBONATE (IV ADD) 50 MEQ in DEXTROSE 5% 1,000 ML IV SCH ×3 (02:52→21:09)
[2017-01-28 03:10] LABS: PARTIAL THROMBOPLASTIN TIME 60.6 Sec (25.0-35.0)
[2017-01-28 04:46] LABS: ADD SCAN DIFF NO
[2017-01-28 05:03] LABS: BASOPHILS % 0.2 % (0.0-2.0); EOSINOPHILS # 0.1 10^3/ul (0.0-0.5); EOSINOPHILS % 0.6 % (0.0-7.0); HEMATOCRIT 33.6 % (42.0-52.0); LYMPHOCYTES % 5.8 % (15.0-51.0); MEAN CORPUSCULAR HEMOGLOBIN 29.9 pg (29.0-33.0); MEAN CORPUSCULAR HGB CONC 32.7 g/dl (32.0-37.0); MEAN CORPUSCULAR VOLUME 91.3 fl (82.0-101.0); MONOCYTE # 1.1 10^3/ul (0.3-0.9); MONOCYTES % 6.4 % (0.0-11.0); NEUTROPHILS % 86.1 % (39.0-77.0); PLATELET COUNT 162 10^3/UL (140-415); RED BLOOD COUNT 3.68 10^6/ul (4.70-6.10); RED CELL DISTRIBUTION WIDTH 13.8 % (11.5-14.5); WHITE BLOOD COUNT 17.4 10^3/ul (4.8-10.8)
[2017-01-28 05:06] LABS: MAGNESIUM 1.8 mg/dl (1.7-2.5); PHOSPHORUS 6.8 mg/dl (2.5-4.9)
[2017-01-28 05:09] LABS: ALBUMIN 2.7 g/dl (3.3-4.9); POTASSIUM 4.3 mmol/L (3.5-5.1)
[2017-01-28 05:11] LABS: ALBUMIN/GLOBULIN RATIO 0.96; BILIRUBIN,INDIRECT 0.2 mg/dl (0-1.1); BILIRUBIN,TOTAL 0.2 mg/dl (0.2-1.3); CREATININE 2.99 mg/dl (0.61-1.24); TOTAL PROTEIN 5.5 g/dl (6.1-8.1)
[2017-01-28 05:12] LABS: CALCIUM 7.6 mg/dl (8.4-10.2)
[2017-01-28] MEDS: PANTOPRAZOLE 40 MG INJ IV SCH (05:16)
[2017-01-28] MEDS: ARTIFICIAL TEARS 15 ML OPH BOTH EYES SCH ×3 (05:16→17:37)
[2017-01-28 06:19] LABS: 50/50 PTT IMMED 50.7 Sec
[2017-01-28 06:20] LABS: 50/50 PTT 1 HOUR 63.6 Sec
[2017-01-28] MEDS ORDERED: EPINEPHrine 0.1 MG/ML SYG ONE (07:00)
[2017-01-28] MEDS ORDERED: NA BICARBONATE 8.4% 50 ML SYG ONE (07:00)
[2017-01-28] MEDS: ASPIRIN 81 MG TAB NGT SCH (09:07)
[2017-01-28] MEDS: INSULIN GLARGINE [LANtus] 3 ML PEN SC SCH (09:09)
--- NOTE | 2017-01-28 09:51 | CONS ---
Date/Time of Note Date/Time of Note DATE: 01/28/17 TIME: 09:47 Assessment/Plan Assessment/Plan Additional Assessment/Plan Ventilator settings; AC of 24, tidal volume 500, PEEP of 5, 100% FiO2. Patient currently on Levophed at 11 mics per minute, dopamine 4 mcg/min. Assessment recommendations; 1. Patient admitted with cardiac arrest status post CPR off hypothermia protocol. 2. Persistent hypotension. 3. Bilateral pneumonia. 4. Worsening renal function. 5. Paroxysmal atrial fibrillation, patient currently in sinus rhythm. 6. Profound mental responsiveness. Obtain a chest x-ray. Continue current supportive care. I did have a very detailed discussion with the patient's at bedside and answered all her questions. I did discuss with her that we should give him at least another 24- 48 hours to see if there is a turnaround in his clinical course. The patient's is quite realistic in terms of expectations and the seriousness of her 's medical condition at this point. 40 minutes of critical care time was spent evaluating the patient. Consultation Date/Type/Reason Admit Date/Time Jan 25, 2017 at 16:34 Type of Consultation: Pulmonary/critical care 24 HR Interval Summary Free Text/Dictation Patient condition remains extremely critical. Remains completely unresponsive. Has been off hypothermia protocol since yesterday morning. Remains hypotensive requiring pressor support. General exam; elderly male, orally intubated, currently in no distress, remains unresponsive. Exam/Review of Systems Vital Signs Vitals Vital Signs Date Time Temp Pulse Resp B/P Pulse Ox O2 Delivery O2 Flow Rate FiO2 01/28/17 08:12 100 01/28/17 07:45 97.7 69 24 95/50 99 Mechanical Ventilator Intake and Output 01/27/17 01/27/17 01/28/17 15:00 23:00 07:00 Intake Total 1161.339 ml 1027.568 ml 992.444 ml Output Total 492 ml 1578 ml 1880 ml Balance 669.339 ml -550.432 ml -887.556 ml Exam HEENT exam is; supple neck, positive JVD. No lymphadenopathy. Midline trachea. No thyromegaly. Orally intubated. No neck masses. He has a left intraocular lens implant. He is edentulous. Chest examined; diminished breath sound bilaterally. S1-S2 audible, no murmurs. Regular rhythm. Abdomen examination; soft, protuberant. No organomegaly. Bowel sounds audible. Extremity exam is; no peripheral edema. Pulses 1+ bilaterally. 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 Results Result Diagram: 01/28/17 0350 01/28/17 0350 Results 24 hrs Laboratory Tests Test 01/27/17 10:09 01/27/17 11:08 01/27/17 12:00 01/27/17 12:39 Bedside Glucose 158 163 172 Blood Gas Specimen Source Blood arterial Arterial Blood Date Drawn 01/27/2017 12:10:42 PM Arterial Blood pH (Temp corrected) 7.277 *L Arterial Blood pCO2 (Temp correct) 32.1 L Arterial Blood pO2 (Temp corrected) 79.2 L Arterial Blood HCO3 14.6 L Arterial Blood Base Excess -10.9 L Arterial Blood Oxygen Saturation 94.1 L Brent Test ACCEPTAB Arterial Blood Gas Puncture Site Right Radial Arterial Blood Carboxyhemoglobin 0.3 Arterial Blood Methemoglobin 0.4 Blood Gas A-a O2 Differential 601.7 H Oxyhemoglobin Percent 93.4 Total Hemoglobin 13.2 Blood Gas Temperature 37.0 Blood Gas Respiration Rate 24.0 Blood Gas Actual Respiration Rate 24 Blood Gas Modality VENT - AC FiO2 100.0 Blood Gas Tidal Volume 500.0 Blood Gas Low PEEP Setting 5.0 Blood Gas Critical Value Read Back A AELXANDRU DIAZ Blood Gas Notified Whom JLD Blood Gas Notified Time 01/27/2017 12:27:14 PM Activated Partial Thromboplast Time 56.6 H Mix PTT Normal Plasma Immediate 43.9 Mix PTT Normal Plasma 1 Hour 53.6 Test 01/27/17 13:24 01/27/17 14:27 01/27/17 17:00 01/27/17 17:22 Bedside Glucose 207 180 184 Activated Partial Thromboplast Time 80.6 *H Test 01/27/17 21:22 01/28/17 00:35 01/28/17 02:30 01/28/17 03:50 Bedside Glucose 206 212 Activated Partial Thromboplast Time 60.6 H Mix PTT Normal Plasma Immediate 50.7 Mix PTT Normal Plasma 1 Hour 63.6 White Blood Count 17.4 H Red Blood Count 3.68 L Hemoglobin 11.0 L Hematocrit 33.6 L Mean Corpuscular Volume 91.3 Mean Corpuscular Hemoglobin 29.9 Mean Corpuscular Hemoglobin Concent 32.7 Red Cell Distribution Width 13.8 Platelet Count 162 Mean Platelet Volume 12.0 H Neutrophils % 86.1 H Lymphocytes % 5.8 L Monocytes % 6.4 Eosinophils % 0.6 Basophils % 0.2 Nucleated Red Blood Cells % 0.0 Neutrophils # 15.0 H Lymphocytes # 1.0 Monocytes # 1.1 H Eosinophils # 0.1 Basophils # 0.0 Nucleated Red Blood Cells # 0.0 Sodium Level 138 Potassium Level 4.3 Chloride Level 105 Carbon Dioxide Level 22 Anion Gap 15 Blood Urea Nitrogen 41 H Creatinine 2.99 H Glucose Level 227 H Calcium Level 7.6 L Phosphorus Level 6.8 H Magnesium Level 1.8 Total Bilirubin 0.2 Direct Bilirubin 0.00 Indirect Bilirubin 0.2 Aspartate Amino Transf (AST/SGOT) 138 H Alanine Aminotransferase (ALT/SGPT) 69 Alkaline Phosphatase 95 # Total Protein 5.5 L Albumin 2.7 L Globulin 2.80 Albumin/Globulin Ratio 0.96 Test 01/28/17 05:15 01/28/17 09:05 Bedside Glucose 239 H 205 Medications Medications Current Medications Dopamine HCl/ Dextrose 250 ml @ 7.841 mls/ hr TITRATE IV Last administered on 01/28/17t 00:08; Admin Dose 15.75 MLS/HR; Start 01/25/17 at 16:00 Miscellaneous Information 1 ea NOTE XX ; Start 01/25/17 at 16:30 Glucose (Glutose) 15 gm Q15M PRN PO DECREASED GLUCOSE; Start 01/25/17 at 16:30 Glucose (Glutose) 22.5 gm Q15M PRN PO DECREASED GLUCOSE; Start 01/25/17 at 16: 30 Dextrose (D50w Syringe) 25 ml Q15M PRN IV DECREASED GLUCOSE; Start 01/25/17 at 16:30 Dextrose (D50w Syringe) 50 ml Q15M PRN IV DECREASED GLUCOSE; Start 01/25/17 at 16:30 Glucagon (Glucagen) 1 mg Q15M PRN IM DECREASED GLUCOSE; Start 01/25/17 at 16:30 Glucose (Glutose) 15 gm Q15M PRN BUCCAL DECREASED GLUCOSE; Start 01/25/17 at 16 :30 Fentanyl (Sublimaze) 25 mcg Q10M PRN IV SEDATION; Start 01/25/17 at 16:30 Meperidine HCl (Demerol) 12.5 mg Q4H PRN IV POST OPERATIVE SHIVERING; Start at 16:30 Eye Lubricant (Artificial Tears Oph) 2 drop Q6 BOTH EYES Last administered on 05:16; Admin Dose 2 DROP; Start 01/25/17 at 18:00 Dextrose (D50w Syringe) 25 ml Q15M PRN IV Till BS 80 mg/dL or above x2; Start 01/25/17 at 19:30 Dextrose (D50w Syringe) 50 ml Q15M PRN IV Till BS 80 mg/dL or above x2; Start 01/25/17 at 19:30 Pantoprazole (Protonix Iv) 40 mg DAILY@06 IV Last administered on 01/28/17 05: 16; Admin Dose 40 MG; Start 01/26/17 at 06:00 Ondansetron HCl 4 mg 4 mg Q6H PRN IV NAUSEA AND/OR VOMITING; Start 01/25/17 at 19:30 Norepinephrine 16 mg/Dextrose 500 ml @ 1.87 mls/hr TITRATE IV Last administered on 01/27/17 17:18; Admin Dose 39.37 MLS/HR; Start 01/25/17 at 23: 30 Midazolam HCl (Versed) 50 ml @ 1 mls/hr TITRATE IV Last administered on 02:10; Admin Dose 1 MLS/HR; Start 01/26/17 at 02:00 Aspirin (Aspirin) 81 mg DAILY NGT Last administered on 01/28/17 09:07; Admin Dose 81 MG; Start 01/26/17 at 14:30 Atorvastatin Calcium 80 mg 80 mg HS PO Last administered on 01/27/17 21:24; Admin Dose 80 MG; Start 01/26/17 at 21:00 Cefepime HCl 50 ml @ 100 mls/hr Q24H IVPB Last administered on 01/27/17 11:16 ; Admin Dose 100 MLS/HR; Start 01/27/17 at 11:00 Sodium Bicarbonate/ Dextrose (Na Bicarb/D5W) 1,050 ml @ 75 mls/hr Q14H IV Last administered on 01/28/17 05:04; Admin Dose 75 MLS/HR; Start 01/27/17 at 13 :00 Insulin Glargine (Lantus) 36 unit QAM SC Last administered on 01/28/17 09:09; Admin Dose 36 UNIT; Start 01/27/17 at 14:00 Insulin Aspart (Novolog Insulin Pen) NOVOLOG *MODERATE* ALGORI... Q4 SC Last administered on 01/28/17 09:10; Admin Dose 4 UNIT; Start 01/28/17 at 09:00 CONCETTA GARCIA Jan 28, 2017 09:51
[2017-01-28] MEDS: CEFEPIME 1GM/50 ML (PMX) 50 ML IVPB SCH (11:50)
[2017-01-28] MEDS: HEPARIN 25000 UNITS/250 ML 250 ML IV SCH (11:56)
--- NOTE | 2017-01-28 13:02 | PN ---
Date/Time of Note Date/Time of Note DATE: 01/28/17 TIME: 12:52 Assessment/Plan VTE Prophylaxis VTE Prophylaxis Intervention: heparin Lines/Catheters IV [facility]from [facility] [place] [facility] Urinary Cath still in place: Yes Reason Cath still needed: urinary retention Assessment/Plan Chief Complaint/Hosp Course Assessment/Plan: 81-year-old male who came in after cardiac arrest at home, managed for the followin. Cardiac arrest with return of spontaneous circulation, status post resuscitation x2. Intubated. - f/u CV and pulm rec's - appreciate Neuro consult, and EEG results - (Abnormal study secondary to electrocerebral silence. In the context of patient's examination and laboratory values, this test could be used as secondary confirmatory testing for brain ) - Continue ICU care and vent Mgt - consider palliative consult 2. Diabetic ketoacidosis - resolved now - ISS, Lantus 3. Acute respiratory failure, ventilator dependent, secondary to #1. - f/u pulm rec's 4. High blood pressure - pt on pressor support - try to wean as tolerated 5. Dyslipidemia - statin 6. Acute transaminitis which could be secondary to shock liver - monitor 7. Systemic inflammatory response syndrome - Ucx = + Enterococcus and gram (-) rods - continue broad spectrum abx, f/u final cx results 8. NSTEMI - f/u pul and cardio recs / patient is on heparin drip for Nstemi Prophylaxis: Heparin and pepcid Critical care = 45 mins Problems: Subjective 24 Hr Interval Summary Free Text/Dictation Pt still intubated, seen by Neuro team. Exam/Review of Systems Vital Signs Vitals Vital Signs Date Time Temp Pulse Resp B/P Pulse Ox O2 Delivery O2 Flow Rate FiO2 01/28/17 12:30 70 24 109/55 95 Mechanical Ventilator 01/28/17 11:10 100 01/28/17 11:00 97.8 Intake and Output 01/27/17 01/27/17 01/28/17 15:00 23:00 07:00 Intake Total 1161.339 ml 1027.568 ml 992.444 ml Output Total 492 ml 1578 ml 1880 ml Balance 669.339 ml -550.432 ml -887.556 ml Exam GENERAL: Obese male. He looks younger than his stated age, completely paralyzed and sedated. HEENT: Head is normocephalic without evidence of trauma. Pupils are sluggish but equal and nondilated. The patient is endotracheally intubated. CHEST: Sounds clear, maybe slightly diminished in the bases but without crackles or rales. CARDIOVASCULAR: Heart sounds are regular without murmurs. ABDOMEN: NG tube is in place. No active drainage at this time. Abdomen is somewhat firm with hypoactive bowel sounds. Tenderness could not be assessed. LOWER EXTREMITIES: Negative for edema. NEUROLOGIC: The patient is paralyzed. SKIN: There was no gross rash or jaundice. Results Result Diagram: 01/28/17 0350 01/28/17 0350 Results 24 hrs Laboratory Tests Test 01/27/17 13:24 01/27/17 14:27 01/27/17 17:00 01/27/17 17:22 Bedside Glucose 207 180 184 Activated Partial Thromboplast Time 80.6 *H Test 01/27/17 21:22 01/28/17 00:35 01/28/17 02:30 01/28/17 03:50 Bedside Glucose 206 212 Activated Partial Thromboplast Time 60.6 H Mix PTT Normal Plasma Immediate 50.7 Mix PTT Normal Plasma 1 Hour 63.6 White Blood Count 17.4 H Red Blood Count 3.68 L Hemoglobin 11.0 L Hematocrit 33.6 L Mean Corpuscular Volume 91.3 Mean Corpuscular Hemoglobin 29.9 Mean Corpuscular Hemoglobin Concent 32.7 Red Cell Distribution Width 13.8 Platelet Count 162 Mean Platelet Volume 12.0 H Neutrophils % 86.1 H Lymphocytes % 5.8 L Monocytes % 6.4 Eosinophils % 0.6 Basophils % 0.2 Nucleated Red Blood Cells % 0.0 Neutrophils # 15.0 H Lymphocytes # 1.0 Monocytes # 1.1 H Eosinophils # 0.1 Basophils # 0.0 Nucleated Red Blood Cells # 0.0 Sodium Level 138 Potassium Level 4.3 Chloride Level 105 Carbon Dioxide Level 22 Anion Gap 15 Blood Urea Nitrogen 41 H Creatinine 2.99 H Glucose Level 227 H Calcium Level 7.6 L Phosphorus Level 6.8 H Magnesium Level 1.8 Total Bilirubin 0.2 Direct Bilirubin 0.00 Indirect Bilirubin 0.2 Aspartate Amino Transf (AST/SGOT) 138 H Alanine Aminotransferase (ALT/SGPT) 69 Alkaline Phosphatase 95 # Total Protein 5.5 L Albumin 2.7 L Globulin 2.80 Albumin/Globulin Ratio 0.96 Test 01/28/17 05:15 01/28/17 09:05 01/28/17 09:52 Bedside Glucose 239 H 205 Activated Partial Thromboplast Time 68.7 H Medications Medications Current Medications Dopamine HCl/ Dextrose 250 ml @ 7.841 mls/ hr TITRATE IV Last administered on 01/28/17 00:08; Admin Dose 15.75 MLS/HR; Start 01/25/17 at 16:00 Miscellaneous Information 1 ea NOTE XX ; Start 01/25/17 at 16:30 Glucose (Glutose) 15 gm Q15M PRN PO DECREASED GLUCOSE; Start 01/25/17 at 16:30 Glucose (Glutose) 22.5 gm Q15M PRN PO DECREASED GLUCOSE; Start 01/25/17 at 16: 30 Dextrose (D50w Syringe) 25 ml Q15M PRN IV DECREASED GLUCOSE; Start 01/25/17 at 16:30 Dextrose (D50w Syringe) 50 ml Q15M PRN IV DECREASED GLUCOSE; Start 01/25/17 at 16:30 Glucagon (Glucagen) 1 mg Q15M PRN IM DECREASED GLUCOSE; Start 01/25/17 at 16:30 Glucose (Glutose) 15 gm Q15M PRN BUCCAL DECREASED GLUCOSE; Start 01/25/17 at 16 :30 Fentanyl (Sublimaze) 25 mcg Q10M PRN IV SEDATION; Start 01/25/17 at 16:30 Meperidine HCl (Demerol) 12.5 mg Q4H PRN IV POST OPERATIVE SHIVERING; Start at 16:30 Eye Lubricant (Artificial Tears Oph) 2 drop Q6 BOTH EYES Last administered on 11:50; Admin Dose 2 DROP; Start 01/25/17 at 18:00 Dextrose (D50w Syringe) 25 ml Q15M PRN IV Till BS 80 mg/dL or above x2; Start 01/25/17 at 19:30 Dextrose (D50w Syringe) 50 ml Q15M PRN IV Till BS 80 mg/dL or above x2; Start 01/25/17 at 19:30 Pantoprazole (Protonix Iv) 40 mg DAILY@06 IV Last administered on 01/28/17 05: 16; Admin Dose 40 MG; Start 01/26/17 at 06:00 Ondansetron HCl 4 mg 4 mg Q6H PRN IV NAUSEA AND/OR VOMITING; Start 01/25/17 at 19:30 Norepinephrine 16 mg/Dextrose 500 ml @ 1.87 mls/hr TITRATE IV Last administered on 01/28/17 11:58; Admin Dose 20.62 MLS/HR; Start 01/25/17 at 23: 30 Midazolam HCl (Versed) 50 ml @ 1 mls/hr TITRATE IV Last administered on 02:10; Admin Dose 1 MLS/HR; Start 01/26/17 at 02:00 Aspirin (Aspirin) 81 mg DAILY NGT Last administered on 01/28/17 09:07; Admin Dose 81 MG; Start 01/26/17 at 14:30 Atorvastatin Calcium 80 mg 80 mg HS PO Last administered on 01/27/17 21:24; Admin Dose 80 MG; Start 01/26/17 at 21:00 Cefepime HCl 50 ml @ 100 mls/hr Q24H IVPB Last administered on 01/28/17 11:50 ; Admin Dose 100 MLS/HR; Start 01/27/17 at 11:00 Sodium Bicarbonate/ Dextrose (Na Bicarb/D5W) 1,050 ml @ 75 mls/hr Q14H IV Last administered on 01/28/17 05:04; Admin Dose 75 MLS/HR; Start 01/27/17 at 13 :00 Insulin Glargine (Lantus) 36 unit QAM SC Last administered on 01/28/17 09:09; Admin Dose 36 UNIT; Start 01/27/17 at 14:00 Insulin Aspart (Novolog Insulin Pen) NOVOLOG *MODERATE* ALGORI... Q4 SC Last administered on 01/28/17 09:10; Admin Dose 4 UNIT; Start 01/28/17 at 09:00 KENDRA CAROLINA Jan 28, 2017 13:02
--- NOTE | 2017-01-28 13:50 | CONS ---
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 Awaiting further neurologic testing. Continue aspirin, statin, IV heparin at the current time if no contraindication. Consultation Date/Type/Reason Admit Date/Time Jan 25, 2017 at 16:34 Type of Consultation: cv 24 HR Interval Summary Free Text/Dictation Patient seen and examined Exam/Review of Systems Vital Signs Vitals Vital Signs Date Time Temp Pulse Resp B/P Pulse Ox O2 Delivery O2 Flow Rate FiO2 01/28/17 12:30 70 24 109/55 95 Mechanical Ventilator 01/28/17 11:10 100 01/28/17 11:00 97.8 Intake and Output 01/27/17 01/27/17 01/28/17 15:00 23:00 07:00 Intake Total 1161.339 ml 1027.568 ml 992.444 ml Output Total 492 ml 1578 ml 1880 ml Balance 669.339 ml -550.432 ml -887.556 ml Exam No response to verbal, noxious or tactile stimuli Head: normocephalic Eyes: other (Pupils are fixed and dilated) Respiratory: other (Coarse breath sounds bilaterally, no wheezing) Cardiovascular: other (S1-S2 heard), regular rate and rhythm Gastrointestinal: bowel sounds, non-tender, soft Extremities: edema Results Result Diagram: 01/28/17 0350 01/28/17 0350 Results 24 hrs Laboratory Tests Test 01/27/17 14:27 01/27/17 17:00 01/27/17 17:22 01/27/17 21:22 Bedside Glucose 180 184 206 Activated Partial Thromboplast Time 80.6 *H Test 01/28/17 00:35 01/28/17 02:30 01/28/17 03:50 01/28/17 05:15 Bedside Glucose 212 239 H Activated Partial Thromboplast Time 60.6 H Mix PTT Normal Plasma Immediate 50.7 Mix PTT Normal Plasma 1 Hour 63.6 White Blood Count 17.4 H Red Blood Count 3.68 L Hemoglobin 11.0 L Hematocrit 33.6 L Mean Corpuscular Volume 91.3 Mean Corpuscular Hemoglobin 29.9 Mean Corpuscular Hemoglobin Concent 32.7 Red Cell Distribution Width 13.8 Platelet Count 162 Mean Platelet Volume 12.0 H Neutrophils % 86.1 H Lymphocytes % 5.8 L Monocytes % 6.4 Eosinophils % 0.6 Basophils % 0.2 Nucleated Red Blood Cells % 0.0 Neutrophils # 15.0 H Lymphocytes # 1.0 Monocytes # 1.1 H Eosinophils # 0.1 Basophils # 0.0 Nucleated Red Blood Cells # 0.0 Sodium Level 138 Potassium Level 4.3 Chloride Level 105 Carbon Dioxide Level 22 Anion Gap 15 Blood Urea Nitrogen 41 H Creatinine 2.99 H Glucose Level 227 H Calcium Level 7.6 L Phosphorus Level 6.8 H Magnesium Level 1.8 Total Bilirubin 0.2 Direct Bilirubin 0.00 Indirect Bilirubin 0.2 Aspartate Amino Transf (AST/SGOT) 138 H Alanine Aminotransferase (ALT/SGPT) 69 Alkaline Phosphatase 95 # Total Protein 5.5 L Albumin 2.7 L Globulin 2.80 Albumin/Globulin Ratio 0.96 Test 01/28/17 09:05 01/28/17 09:52 01/28/17 13:30 Bedside Glucose 205 225 H Activated Partial Thromboplast Time 68.7 H Medications Medications Current Medications Dopamine HCl/ Dextrose 250 ml @ 7.841 mls/ hr TITRATE IV Last administered on 01/28/17t 00:08; Admin Dose 15.75 MLS/HR; Start 01/25/17 at 16:00 Miscellaneous Information 1 ea NOTE XX ; Start 01/25/17 at 16:30 Glucose (Glutose) 15 gm Q15M PRN PO DECREASED GLUCOSE; Start 01/25/17 at 16:30 Glucose (Glutose) 22.5 gm Q15M PRN PO DECREASED GLUCOSE; Start 01/25/17 at 16: 30 Dextrose (D50w Syringe) 25 ml Q15M PRN IV DECREASED GLUCOSE; Start 01/25/17 at 16:30 Dextrose (D50w Syringe) 50 ml Q15M PRN IV DECREASED GLUCOSE; Start 01/25/17 at 16:30 Glucagon (Glucagen) 1 mg Q15M PRN IM DECREASED GLUCOSE; Start 01/25/17 at 16:30 Glucose (Glutose) 15 gm Q15M PRN BUCCAL DECREASED GLUCOSE; Start 01/25/17 at 16 :30 Fentanyl (Sublimaze) 25 mcg Q10M PRN IV SEDATION; Start 01/25/17 at 16:30 Meperidine HCl (Demerol) 12.5 mg Q4H PRN IV POST OPERATIVE SHIVERING; Start at 16:30 Eye Lubricant (Artificial Tears Oph) 2 drop Q6 BOTH EYES Last administered on 11:50; Admin Dose 2 DROP; Start 01/25/17 at 18:00 Dextrose (D50w Syringe) 25 ml Q15M PRN IV Till BS 80 mg/dL or above x2; Start 01/25/17 at 19:30 Dextrose (D50w Syringe) 50 ml Q15M PRN IV Till BS 80 mg/dL or above x2; Start 01/25/17 at 19:30 Pantoprazole (Protonix Iv) 40 mg DAILY@06 IV Last administered on 01/28/17 05: 16; Admin Dose 40 MG; Start 01/26/17 at 06:00 Ondansetron HCl 4 mg 4 mg Q6H PRN IV NAUSEA AND/OR VOMITING; Start 01/25/17 at 19:30 Norepinephrine 16 mg/Dextrose 500 ml @ 1.87 mls/hr TITRATE IV Last administered on 01/28/17 11:58; Admin Dose 20.62 MLS/HR; Start 01/25/17 at 23: 30 Midazolam HCl (Versed) 50 ml @ 1 mls/hr TITRATE IV Last administered on 02:10; Admin Dose 1 MLS/HR; Start 01/26/17 at 02:00 Aspirin (Aspirin) 81 mg DAILY NGT Last administered on 01/28/17 09:07; Admin Dose 81 MG; Start 01/26/17 at 14:30 Atorvastatin Calcium 80 mg 80 mg HS PO Last administered on 01/27/17 21:24; Admin Dose 80 MG; Start 01/26/17 at 21:00 Cefepime HCl 50 ml @ 100 mls/hr Q24H IVPB Last administered on 01/28/17 11:50 ; Admin Dose 100 MLS/HR; Start 01/27/17 at 11:00 Sodium Bicarbonate/ Dextrose (Na Bicarb/D5W) 1,050 ml @ 75 mls/hr Q14H IV Last administered on 01/28/17 05:04; Admin Dose 75 MLS/HR; Start 01/27/17 at 13 :00 Insulin Glargine (Lantus) 36 unit QAM SC Last administered on 01/28/17 09:09; Admin Dose 36 UNIT; Start 01/27/17 at 14:00 Insulin Aspart (Novolog Insulin Pen) NOVOLOG *MODERATE* ALGORI... Q4 SC Last administered on 01/28/17 13:34; Admin Dose 6 UNIT; Start 01/28/17 at 09:00 Chase Stapleton DO Jan 28, 2017 13:50
[2017-01-28] MEDS: ATORVASTATIN 80 MG TAB PO SCH (20:46)
--- NOTE | 2017-01-28 21:07 | RADRPT ---
AMENDMENT: 01/28/2017 9:59:24 PM Chase Wick MD ADDENDUM ETT tip is at the thoracic inlet 9.5 cm above the dorcas, 5 cm above the level of the aortic knob. Discussed with ICU nurse Kary 01-28-2017 21:55 PROCEDURE: XR Chest. CLINICAL INDICATION: Shortness of breath. Endotracheal tube placement trouble with suction TECHNIQUE: A single portable view of the chest was obtained. COMPARISON: 01/27/2017 FINDINGS: The endotracheal tube has been retracted. The nasogastric tube and right subclavian catheter are es sentially unchanged. The aorta is tortuous and atherosclerotic. The cardiomediastinal silhouette i s otherwise enlarged and is stable. Diffuse pulmonary vascular congestion is seen with likely under lying pulmonary edema and is stable. Bilateral pleural effusions are again noted and are unchanged. The soft tissues and osseous structures demonstrate benign age related senescent changes. IMPRESSION: 1. Endotracheal tube which has been retracted. 2. Radiographic findings of congestive heart failure again seen which is essentially stable. RPTAT: HPNM .Chase Wick MD, Date Time Electronically viewed and signed by .Chase Wick MD, on 01/28/2017 21:59 .K/
--- NOTE | 2017-01-28 22:01 | RADRPT ---
Vent Rate: 74 bpm RR Interval: 0 msec CO Interval: 152 msec QRS Duration: 116 msec QT Interval: 432 msec QTC Interval: 479 msec P-R-T [place]: 76 - -58 - 17 degrees Normal sinus rhythm Left axis deviation RSR apos; orattern in V1 suggests right ventricular conduction delay Left ventricular hypertrophy with QRS widening Inferior infarct , age undetermined Abnormal ECG Electronically Signed By: Chase Stapleton [id number]
--- NOTE | 2017-01-28 22:01 | RADRPT ---
Vent Rate: 72 bpm RR Interval: 0 msec [place] Interval: 288 msec QRS Duration: 124 msec QT Interval: 510 msec QTC Interval: 558 msec P-R-T [place]: 58 - -57 - 27 degrees Sinus rhythm with 1st degree AV block with premature supraventricular complexes Left axis deviation Right bundle branch block Minimal voltage criteria for LVH, may be normal variant Inferior infarct , age undetermined Abnormal ECG Electronically Signed By: Chase Stapleton [id number]
--- NOTE | 2017-01-28 22:07 | RADRPT ---
Vent Rate: 74 bpm RR Interval: 0 msec [place] Interval: 0 msec QRS Duration: 112 msec QT Interval: 470 msec QTC Interval: 521 msec P-R-T [place]: 0 - -49 - -6 degrees Accelerated junctional rhythm, rate 74 Left axis deviation RSR apos; orattern in V1 suggests right ventricular conduction delay Inferior infarct , age undetermined Anterolateral infarct , age undetermined Prolonged QT Abnormal ECG Electronically Signed By: Paula Amado [id number]
--- NOTE | 2017-01-28 23:03 | RADRPT ---
PROCEDURE: XR Chest. CLINICAL INDICATION: Endotracheal tube placement. TECHNIQUE: Portable AP semi erect view of the chest was obtained. COMPARISON: 01/28/2017 at 20:33 FINDINGS: The cardiomediastinal silhouette is enlarged. Interval advancement of the endotracheal tube the dis tanvi tip now in good position projecting 3 cm above the dorcas. Previously seen right-sided PICC is again seen with the tip projecting at the confluence of the innominate vein and superior vena cava. The nasogastric tube seen previously remains with its distal tip in the stomach. Slight decrease w ithout resolution of pulmonary vascular congestion and pleural effusions. The osseous structures ar e intact with no evidence for acute abnormality. Calcification of the aorta is again identified RPTAT:HJJR IMPRESSION: 1. Successful interval advancement of the endotracheal tube, the distal tip now in good position pr ojecting 3 cm above the dorcas. 2. Slight radiographic improvement in congestive heart failure pattern compared to the prior study. 3. Right-sided PICC and nasogastric tubes remain in satisfactory radiographic positions. Physician Efrain Date Time Electronically viewed and signed by Physician Efrain on 01/28/2017 23:03 /
--- NOTE | 2017-01-28 23:05 | RADRPT ---
PROCEDURE: XR Abdomen. CLINICAL INDICATION: Gastric residuals. Hypoactive bowel sounds TECHNIQUE: AP supine abdomen x-rays, 2 images sent to the PACS for review. COMPARISON: None available. FINDINGS: Distal tip of the nasogastric tube is pointing to the left in the region of the left upper quadrant, the area of the gastric fundus. A small amount of gas is seen within the stomach. The bowel gas p attern is nonspecific. There is no evidence of obstruction. No visceromegaly, soft tissue mass or p athologic calcification is demonstrated. The osseous structures are unremarkable. RPTAT:HJJR IMPRESSION: 1. Distal tip of the nasogastric tube is projecting within the gastric fundus region. 2. No evidence of ileus, bowel obstruction or acute intra-abdominal pathology. Physician Efrain Date Time Electronically viewed and signed by Physician Efrain on 01/28/2017 23:05 /
[2017-01-29] VITALS (41 sets, daily range): BP systolic 71–159; BP diastolic 36–74; PULSE 72–86; RESP 24
[2017-01-29] MEDS: ARTIFICIAL TEARS 15 ML OPH BOTH EYES SCH ×2 (00:27→05:17)
[2017-01-29] MEDS: METOCLOPRAMIDE 10 MG INJ IV SCH ×2 (00:28→06:14)
[2017-01-29] MEDS: INSULIN ASPART [NOVOLOG] 3 ML PEN SC SCH ×3 (00:36→08:49)
[2017-01-29] MEDS: PANTOPRAZOLE 40 MG INJ IV SCH (05:17)
[2017-01-29 05:43] LABS: ADD SCAN DIFF NO
[2017-01-29 05:54] LABS: ABNORMAL IP MESSAGE 1; BASOPHILS % 0.3 % (0.0-2.0); EOSINOPHILS # 0.3 10^3/ul (0.0-0.5); HEMATOCRIT 32.1 % (42.0-52.0); HEMOGLOBIN 10.9 g/dl (14.0-18.0); LYMPHOCYTES % 8.2 % (15.0-51.0); MEAN CORPUSCULAR HEMOGLOBIN 31.1 pg (29.0-33.0); MEAN CORPUSCULAR VOLUME 91.7 fl (82.0-101.0); MEAN PLATELET VOLUME 11.3 fl (7.4-10.4); MONOCYTE # 0.8 10^3/ul (0.3-0.9); MONOCYTES % 6.2 % (0.0-11.0); NEUTROPHIL # 10.4 10^3/ul (1.6-7.5); NEUTROPHILS % 82.3 % (39.0-77.0); PLATELET COUNT 154 10^3/UL (140-415); RED CELL DISTRIBUTION WIDTH 13.8 % (11.5-14.5); WHITE BLOOD COUNT 12.6 10^3/ul (4.8-10.8)
--- NOTE | 2017-01-29 08:34 | RADRPT ---
PROCEDURE: XR Chest. CLINICAL INDICATION: Respiratory failure TECHNIQUE: An AP view of the chest was obtained. COMPARISON: Chest x-ray dated 01/28/2017 FINDINGS: The endotracheal tube tip is approximately 1.7 cm above the dorcas. The tip of the enteric tube ex tends below the left diaphragm. There is a right upper extremity PICC line with tip in the mid SVC. There is prominence of the interstitial and central pulmonary vascular markings with bibasilar inte rstitial opacities and small bilateral pleural effusions. No pneumothorax is seen. The cardiomedia stinal silhouette is mildly enlarged . Calcifications are seen within the aortic arch. The osseous structures demonstrate senescent changes. IMPRESSION: 1. Findings suggestive of pulmonary vascular congestion/interstitial edema with small bilateral pl eural effusions. No significant interval change. 2. Bibasilar interstitial opacities may also reflect interstitial edema or superimposed atelectasis or pneumonia. This is also unchanged. 3. Mild cardiomegaly and aortic atherosclerosis. 4. Tubes and lines, as described above. RPTAT: HH .Huma Bullard MD, MD Date Time Electronically viewed and signed by .Huma Bullard MD, MD on 01/29/2017 08:33 .G/
[2017-01-29] MEDS: DOPamine-D5W 1.6 MG/ML 250 ML IV SCH (08:46)
[2017-01-29] MEDS: INSULIN GLARGINE [LANtus] 3 ML PEN SC SCH (08:48)
[2017-01-29] MEDS: ASPIRIN 81 MG TAB NGT SCH (08:50)
[2017-01-29] MEDS ORDERED: morphine 2 MG INJ IV PRN (09:30)
--- NOTE | 2017-01-29 10:13 | RADRPT ---
Vent Rate: 71 bpm RR Interval: 0 msec CO Interval: 226 msec QRS Duration: 120 msec QT Interval: 574 msec QTC Interval: 623 msec P-R-T [place]: 38 - -52 - 38 degrees Sinus rhythm with 1st degree AV block with premature supraventricular complexes Left axis deviation Low voltage QRS Right bundle branch block Inferior infarct , age undetermined Possible Anterolateral infarct , age undetermined Abnormal ECG Electronically Signed By: Chase Stapleton [id number]
--- NOTE | 2017-01-29 10:34 | CONS ---
Date/Time of Note Date/Time of Note DATE: 01/29/17 TIME: 10:32 Consult Date/Type/Reason Admit Date/Time Jan 25, 2017 at 16:34 Initial Consult Date Type of Consultation: pulmonary ICU Subjective Patient was examined at bedside with family present. Pupils fixed and dilated No gag reflex Patient is however breathing above the set ventilator rate Objective Vital Signs Date Time Temp Pulse Resp B/P Pulse Ox O2 Delivery O2 Flow Rate FiO2 01/29/17 09:15 77 24 136/74 92 01/29/17 09:00 Mechanical Ventilator 01/29/17 08:00 97.2 01/29/17 07:47 100 Intake and Output 01/28/17 01/28/17 01/29/17 15:00 23:00 07:00 Intake Total 1002.07 ml 974.838 ml 949.514 ml Output Total 840 ml 1050 ml 1300 ml Balance 162.07 ml -75.162 ml -350.486 ml Exam PHYSICAL EXAMINATION GENERAL: Elderly gentleman, intubated on mechanical ventilation, VITAL SIGNS: see below. HEENT: Pupils unreactive to light. CARDIAC: S1, S2, tachycardia. CHEST: Diminished air entry bilaterally. ABDOMEN: Mildly distended. Bowel sounds present EXTREMITIES: No cyanosis, clubbing or edema. NEUROLOGIC: Unable to assess Results/Medications Result Diagram: 01/29/17 0525 01/28/17 0350 Results 24 hrs Laboratory Tests Test 01/28/17 13:30 01/28/17 15:55 01/28/17 17:34 01/28/17 20:46 Bedside Glucose 225 H 194 148 Activated Partial Thromboplast Time 71.9 *H Test 01/28/17 23:02 01/29/17 00:35 01/29/17 05:17 01/29/17 05:25 Activated Partial Thromboplast Time 65.7 H 57.9 H Bedside Glucose 133 142 White Blood Count 12.6 #H Red Blood Count 3.50 L Hemoglobin 10.9 L Hematocrit 32.1 L Mean Corpuscular Volume 91.7 Mean Corpuscular Hemoglobin 31.1 Mean Corpuscular Hemoglobin Concent 34.0 Red Cell Distribution Width 13.8 Platelet Count 154 Mean Platelet Volume 11.3 H Neutrophils % 82.3 H Lymphocytes % 8.2 L Monocytes % 6.2 Eosinophils % 2.0 Basophils % 0.3 Nucleated Red Blood Cells % 0.0 Neutrophils # 10.4 H Lymphocytes # 1.0 Monocytes # 0.8 Eosinophils # 0.3 Basophils # 0.0 Nucleated Red Blood Cells # 0.0 Test 01/29/17 08:47 Bedside Glucose 170 Medications Current Medications Dopamine HCl/ Dextrose 250 ml @ 7.841 mls/ hr TITRATE IV Last administered on 01/29/17 08:46; Admin Dose 15.683 MLS/HR; Start 01/25/17 at 16:00 Miscellaneous Information 1 ea NOTE XX ; Start 01/25/17 at 16:30 Glucose (Glutose) 15 gm Q15M PRN PO DECREASED GLUCOSE; Start 01/25/17 at 16:30 Glucose (Glutose) 22.5 gm Q15M PRN PO DECREASED GLUCOSE; Start 01/25/17 at 16: 30 Dextrose (D50w Syringe) 25 ml Q15M PRN IV DECREASED GLUCOSE; Start 01/25/17 at 16:30 Dextrose (D50w Syringe) 50 ml Q15M PRN IV DECREASED GLUCOSE; Start 01/25/17 at 16:30 Glucagon (Glucagen) 1 mg Q15M PRN IM DECREASED GLUCOSE; Start 01/25/17 at 16:30 Glucose (Glutose) 15 gm Q15M PRN BUCCAL DECREASED GLUCOSE; Start 01/25/17 at 16 :30 Fentanyl (Sublimaze) 25 mcg Q10M PRN IV SEDATION; Start 01/25/17 at 16:30 Meperidine HCl (Demerol) 12.5 mg Q4H PRN IV POST OPERATIVE SHIVERING; Start at 16:30 Eye Lubricant (Artificial Tears Oph) 2 drop Q6 BOTH EYES Last administered on 05:17; Admin Dose 2 DROP; Start 01/25/17 at 18:00 Dextrose (D50w Syringe) 25 ml Q15M PRN IV Till BS 80 mg/dL or above x2; Start 01/25/17 at 19:30 Dextrose (D50w Syringe) 50 ml Q15M PRN IV Till BS 80 mg/dL or above x2; Start 01/25/17 at 19:30 Pantoprazole (Protonix Iv) 40 mg DAILY@06 IV Last administered on 01/29/17 05: 17; Admin Dose 40 MG; Start 01/26/17 at 06:00 Ondansetron HCl 4 mg 4 mg Q6H PRN IV NAUSEA AND/OR VOMITING; Start 01/25/17 at 19:30 Norepinephrine 16 mg/Dextrose 500 ml @ 1.87 mls/hr TITRATE IV Last administered on 01/28/17 11:58; Admin Dose 20.62 MLS/HR; Start 01/25/17 at 23: 30 Midazolam HCl (Versed) 50 ml @ 1 mls/hr TITRATE IV Last administered on 02:10; Admin Dose 1 MLS/HR; Start 01/26/17 at 02:00 Aspirin (Aspirin) 81 mg DAILY NGT Last administered on 01/29/17 08:50; Admin Dose 81 MG; Start 01/26/17 at 14:30 Atorvastatin Calcium 80 mg 80 mg HS PO Last administered on 01/28/17 20:46; Admin Dose 80 MG; Start 01/26/17 at 21:00 Cefepime HCl 50 ml @ 100 mls/hr Q24H IVPB Last administered on 01/28/17 11:50 ; Admin Dose 100 MLS/HR; Start 01/27/17 at 11:00 Sodium Bicarbonate/ Dextrose (Na Bicarb/D5W) 1,050 ml @ 75 mls/hr Q14H IV Last administered on 01/28/17 21:09; Admin Dose 75 MLS/HR; Start 01/27/17 at 13 :00 Insulin Glargine (Lantus) 36 unit QAM SC Last administered on 01/29/17 08:48; Admin Dose 36 UNIT; Start 01/27/17 at 14:00 Insulin Aspart (Novolog Insulin Pen) NOVOLOG *MODERATE* ALGORI... Q4 SC Last administered on 01/29/17 08:49; Admin Dose 2 UNIT; Start 01/28/17 at 09:00 Metoclopramide HCl (Reglan) 10 mg Q6 IV Last administered on 01/29/17 06:14; Admin Dose 10 MG; Start 01/29/17 at 00:30; Stop 01/30/17 at 00:30 Metoclopramide HCl (Reglan) 10 mg Q6H PRN IV INCREASE GI MOTILITY; Start at 06:00 Morphine Sulfate (morphine) 2 mg Q1H PRN IV PAIN; Start 01/29/17 at 09:30 Assessment/Plan Chief Complaint/Hosp Course Assessment 1. Cardiopulmonary arrest 2. Severe anoxic brain injury spontaneous respiration not consistent with brain 3. Hypoxemic respiratory failure secondary to above 4. Renal failure with likely ATN injury Recommendations 1. Extensive discussion with family at bedside. Patient's current condition is not consistent with his wishes of quality of life. He did not want artificial life support and given his current severe encephalopathy likely from his cardiac arrest patients family requesting comfort measures in accordance with the patient's wishes. The patient to be extubated vasopressors to be discontinued Morphine when necessary as needed demurrage worker at bedside during this discussion Critical care time 40 minutes. Problems: JOANA MCKEON MD, [facility] Jan 29, 2017 10:34
--- NOTE | 2017-01-29 12:10 | DES ---
Date/Time of Note Date/Time of Note DATE: 01/29/17 TIME: 12:02 Discharge/ Summary Admission/Discharge Info Admit Date/Time Jan 25, 2017 at 16:34 Discharge Date/Time Final Diagnosis 1. Cardiac arrest with return of spontaneous circulation, status post resuscitation x2. 2. Diabetic ketoacidosis 3. Acute respiratory failure, ventilator dependent, secondary to #1. 4. Hx of prior High blood pressure 5. Dyslipidemia 6. Acute transaminitis which could be secondary to shock liver 7. Systemic inflammatory response syndrome - Ucx = + Enterococcus and gram (-) rods 8. NSTEMI Preliminary Cause of 1. Asystole - minutes 2. Res distress - days 3. cardiac arrest with ROSC initially - days Hospital Course Assessment/Plan: 81-year-old male who came in after cardiac arrest at home, managed for the followin. Cardiopulmonary arrest 2. Severe anoxic brain injury spontaneous respiration not consistent with brain 3. Hypoxemic respiratory failure secondary to above 4. Renal failure with likely ATN injury 5. Dyslipidemia - statin 6. Acute transaminitis which could be secondary to shock liver - monitor 7. Systemic inflammatory response syndrome - Ucx = + Enterococcus and gram (-) rods - continue broad spectrum abx, f/u final cx results 8. NSTEMI - f/u pul and cardio recs / patient is on heparin drip for Nstemi Extensive discussion with family at bedside on 01/29/17.. Patient's current condition is not consistent with his wishes of quality of life. He did not want artificial life support and given his current severe encephalopathy likely from his cardiac arrest patients family requesting comfort measures in accordance with the patient's wishes. The patient was terminally extubated, vasopressors were discontinued Morphine when necessary as needed end worker at bedside during this discussion Pt was terminally extubated 10:50 on 01/29/17, and went into asystole shortly after, and at 11:10 PE: no pulses detected AAO x 0 no heart or breath sounds ausculated or detected no bowel sounds heard non-responsive to painful or verbal stimuli Pending Labs/Cultures Laboratory Tests Test 01/28/17 13:30 01/28/17 15:55 01/28/17 17:34 01/28/17 20:46 Bedside Glucose 225mg/dL (70-220) 194mg/dL (70-220) 148mg/dL (70-220) Activated Partial Thromboplast Time 71.9Sec (25.0-35.0) Test 01/28/17 23:02 01/29/17 00:35 01/29/17 05:17 01/29/17 05:25 Activated Partial Thromboplast Time 65.7Sec (25.0-35.0) 57.9Sec (25.0-35.0) Bedside Glucose 133mg/dL (70-220) 142mg/dL (70-220) White Blood Count 12.610^3/ul (4.8-10.8) Red Blood Count 3.5010^6/ul (4.70-6.10) Hemoglobin 10.9g/dl (14.0-18.0) Hematocrit 32.1% (42.0-52.0) Mean Corpuscular Volume 91.7fl (82.0-101.0) Mean Corpuscular Hemoglobin 31.1pg (29.0-33.0) Mean Corpuscular Hemoglobin Concent 34.0g/dl (32.0-37.0) Red Cell Distribution Width 13.8% (11.5-14.5) Platelet Count 73819^3/UL (140-415) Mean Platelet Volume 11.3fl (7.4-10.4) Neutrophils % 82.3% (39.0-77.0) Lymphocytes % 8.2% (15.0-51.0) Monocytes % 6.2% (0.0-11.0) Eosinophils % 2.0% (0.0-7.0) Basophils % 0.3% (0.0-2.0) Nucleated Red Blood Cells % 0.0/100WBC (0.0-0.0) Neutrophils # 10.410^3/ul (1.6-7.5) Lymphocytes # 1.010^3/ul (0.8-2.9) Monocytes # 0.810^3/ul (0.3-0.9) Eosinophils # 0.310^3/ul (0.0-0.5) Basophils # 0.010^3/ul (0.0-0.1) Nucleated Red Blood Cells # 0.010^3/ul (0.0-0.0) Test 01/29/17 08:47 Bedside Glucose 170mg/dL (70-220) KENDRA CAROLINA Jan 29, 2017 12:10
[2017-01-30] MEDS ORDERED: METOCLOPRAMIDE 10 MG INJ IV PRN (06:00)
== END 2017-01-29 02:15 | disposition expired | DRG 208 ==
LOC: E/R 14:10 → ICU 16:34
PROVIDERS: ADMIT Family Medicine; ATTEND Family Medicine
PROC: 0BH17EZ Insertion of Endotracheal Airway into Trachea, Via Natural or Artificial Opening (ICD-10-PCS; principal; 2017-01-25)
PROC: 5A1945Z Respiratory Ventilation, 24-96 Consecutive Hours (ICD-10-PCS; 2017-01-25)
PROC: 5A12012 Performance of Cardiac Output, Single, Manual (ICD-10-PCS; 2017-01-25)
PROC: 05H533Z Insertion of Infusion Device into Right Subclavian Vein, Percutaneous Approach (ICD-10-PCS; 2017-01-25)
DX: J96.01 Acute respiratory failure with hypoxia (principal); I21.4 Non-ST elevation (NSTEMI) myocardial infarction; K72.00 Acute and subacute hepatic failure without coma; E13.10 Other specified diabetes mellitus with ketoacidosis without coma; G93.1 Anoxic brain damage, not elsewhere classified; N17.9 Acute kidney failure, unspecified; I42.9 Cardiomyopathy, unspecified; J96.02 Acute respiratory failure with hypercapnia; E78.5 Hyperlipidemia, unspecified; I25.2 Old myocardial infarction; I10 Essential (primary) hypertension; I25.10 Atherosclerotic heart disease of native coronary artery without angina pectoris; R82.71 Bacteriuria; Z95.5 Presence of coronary angioplasty implant and graft
CPT/HCPCS: 36415; 36600; 70450; 71010; 74000; 80048; 80053; 80061; 81001; 81003; 82150; 82550; 82553; 82803; 82962; 83036; 83605; 83690; 83735; 84100; 84484; 85025; 85335; 85378; 85384; 85610; 85730; 87040; 87081; 87086; 92950; 93005; 93306; 94002; 94003; 94770; 96372; 96374; 96375; C9113; J0171; J0692; J1265; J1644; J1815; J2270; J2765; J3010; J3475; J7030; J7050; J7060; J7070